=== PATIENT | male | born 1965 | race Caucasian/White ===

== ENCOUNTER 2017-08-06 13:31 | Emergency (ER) | payer MEDICAID, OTHER ==
[2017-08-06] MEDS: ALBUTEROL/IPRATROPIUM (NEB) 3 ML AMP HHN (16:26)
[2017-08-06] MEDS: SOD CHLORIDE 0.9% 1,000 ML IV ×2 (16:35→19:02)
[2017-08-06] MEDS: ACETAMINOPHEN 500 MG TAB PO (16:35)
[2017-08-06] MEDS: KETOROLAC 30 MG INJ IV (16:35)
[2017-08-06] MEDS: CEFTRIAXONE 1 GM INJ IM (19:02)
== END 2017-08-06 20:50 | disposition home or self-care (01) ==
LOC: FTE 13:31
DX: J18.9 Pneumonia, unspecified organism (principal); E86.0 Dehydration
CPT/HCPCS: 71020; 87400; 94664; 96372; 96374; 99284-25

== ENCOUNTER 2018-01-07 17:10 | Inpatient (IN) | payer OTHER, MEDICAID ==
[2018-01-07] MEDS: morphine 4 MG/ML VIAL IV (17:50)
[2018-01-07] MEDS: ONDANSETRON 4 MG INJ IV (17:50)
[2018-01-07] MEDS: CEFEPIME 2GM/50 ML (PMX) 50 ML IVPB (17:51)
[2018-01-07 18:00] LABS: POSITIVE DIFF @See below; RED BLOOD COUNT 4.63 10^6/ul (4.70-6.10)
[2018-01-07 18:04] LABS: ADD UMIC YES; UR ASCORBIC ACID 40 mg/dL (NEGATIVE); UR BILIRUBIN (Dip) NEGATIVE (NEGATIVE); UR BLOOD (Dip) NEGATIVE (NEGATIVE); UR CLARITY CLEAR (CLEAR); UR COLOR YELLOW (YELLOW); UR GLUCOSE (Dip) NEGATIVE (NEGATIVE); UR KETONES (Dip) NEGATIVE (NEGATIVE); UR LEUKOCYTE ESTERASE (Dip) NEGATIVE Leu/ul (NEGATIVE); UR NITRITE (Dip) NEGATIVE (NEGATIVE); UR RBC 2 /HPF (0-5); UR SPECIFIC GRAVITY (Dip) 1.026 (1.003-1.030); UR TOTAL PROTEIN (Dip) 1+ mg/dl (NEGATIVE); UR UROBILINOGEN (Dip) 2+ mg/dL (NEGATIVE); UR WBC 1 /HPF (0-5)
[2018-01-07 18:15] LABS: INR 1.14; PROTIME 14.8 Sec (11.9-14.9); PT RATIO 1.2
[2018-01-07 18:16] LABS: PARTIAL THROMBOPLASTIN TIME 42.1 Sec (25.0-35.0)
[2018-01-07 18:19] LABS: ALANINE AMINOTRANSFERASE 96 IU/L (13-69); ALBUMIN 3.5 g/dl (3.3-4.9); ALBUMIN/GLOBULIN RATIO 0.81; ALKALINE PHOSPHATASE 248 IU/L (42-121); ANION GAP 16 (8-16); ASPARTATE AMINO TRANSFERASE 99 IU/L (15-46); BILIRUBIN,INDIRECT 0.5 mg/dl (0-1.1); BILIRUBIN,TOTAL 0.5 mg/dl (0.2-1.3); BLOOD UREA NITROGEN 16 mg/dl (7-20); CALCIUM 10.1 mg/dl (8.4-10.2); CARBON DIOXIDE 31 mmol/L (21-31); CHLORIDE 97 mmol/L (97-110); CREATININE 1.15 mg/dl (0.61-1.24); GLUCOSE 108 mg/dl (70-220); POTASSIUM 4.7 mmol/L (3.5-5.1); SODIUM 139 mmol/L (135-144); TOTAL PROTEIN 7.8 g/dl (6.1-8.1)
[2018-01-07 18:22] LABS: WHITE BLOOD COUNT 14.8 10^3/ul (4.8-10.8)
[2018-01-07 18:23] LABS: ABNORMAL IP MESSAGE 1; ADD MAN DIFF? YES; HEMOGLOBIN 13.2 g/dl (14.0-18.0); MEAN CORPUSCULAR HEMOGLOBIN 28.5 pg (29.0-33.0); MEAN CORPUSCULAR HGB CONC 33.8 g/dl (32.0-37.0); MEAN CORPUSCULAR VOLUME 84.2 fl (82.0-101.0); MEAN PLATELET VOLUME 9.9 fl (7.4-10.4); NUCLEATED RED BLOOD CELLS% 0.7 /100WBC (0.0-0.0); PLATELET COUNT 171 10^3/UL (140-415); RED CELL DISTRIBUTION WIDTH 12.5 % (11.5-14.5)
[2018-01-07 18:24] LABS: LACTIC ACID 3.2 mmol/L (0.5-2.0)
[2018-01-07 18:31] LABS: TROPONIN-I < 0.012 ng/ml (0.000-0.120)
[2018-01-07] MEDS: VANCOMYCIN 1 GM (PMX) 250 ML IVPB (18:32)
[2018-01-07] MEDS: SOD CHLORIDE 0.9% 1,000 ML IV ×4 (19:30→21:50)
[2018-01-07] MEDS: KETOROLAC 30 MG INJ IV (19:36)
[2018-01-07 19:47] LABS: ANISOCYTOSIS 1+ (0-0); BAND NEUTROPHILS % (M) 7 % (0-4); EOSINOPHILS % (M) 2 % (0-7); ERYTHROBLAST% (NRBC) (M) 2 % (0-0); LYMPHOCYTES #M 4.1 10^3/ul (0.8-2.9); LYMPHOCYTES % (M) 28 % (15-51); METAMYELOCYTES #M 0.7 10^3/ul (0.0-0.0); METAMYELOCYTES %M 5 % (0-0); MICROCYTOSIS 1+ (0-0); MONOCYTE #M 1.6 10^3/ul (0.3-0.9); MONOCYTES % (M) 11 % (0-11); MYELOCYTES #M 0.4 10^3/ul (0.0-0.0); MYELOCYTES % (M) 3 % (0-0); PLATELET MORPHOLOGY COMMENT @See below; PROMYELOCYTES #M 0.2 10^3/ul (0-0); PROMYELOCYTES % (M) 2 % (0-0); REACTIVE LYMPHOCYTES #M 0.2 10^3/ul (0.0-0.0); REACTIVE LYMPHOCYTES% (M) 2 % (0-0); SEG NEUT #M 5.9 10^3/ul (1.6-7.5); SEGMENTED NEUTROPHILS (M) % 39 % (39-77); SMUDGE%M 13 % (0-0)
[2018-01-07] MEDS: ACETAMINOPHEN 325 MG TAB PO (20:06)
[2018-01-07] MEDS ORDERED: VANCOMYCIN IV PER PHARMACY XX (20:30)
[2018-01-07] MEDS ORDERED: NACL 0.9% 3 ML SYG IV (20:30)
[2018-01-07 21:37] LABS: LACTIC ACID 2.2 mmol/L (0.5-2.0)
[2018-01-07] MEDS: SOD CHLORIDE 0.9% 100 ML (23:42)
[2018-01-07] MEDS: IOHEXOL 300MG/ML 150 ML BTL (23:42)
[2018-01-07 23:56] LABS: LACTIC ACID 2.5 mmol/L (0.5-2.0)
[2018-01-08 00:28] LABS: C-REACTIVE PROTEIN 20.9 mg/dl (0.0-0.9)
[2018-01-08] MEDS: PIPER-TAZO 3.375 GM IV (PMX) 100 ML IVPB ×5 (00:44→23:01)
[2018-01-08 00:57] LABS: ERYTHROCYTE SEDIMENTATION RATE 90 mm/Hr (0-20)
[2018-01-08] MEDS: SOD CHLORIDE 0.9% 1,000 ML IV ×5 (00:59→17:29)
[2018-01-08 01:14] LABS: HAAIG REFLEX REFLEX FILED
[2018-01-08] MEDS: HYDROCODONE/APAP (5/325) TAB PO ×2 (01:36→09:35)
[2018-01-08 02:25] LABS: HEPATITIS B SURFACE ANTIGEN NEGATIVE (NEGATIVE)
[2018-01-08 02:42] LABS: HEPATITIS B CORE ANTIBODY REACTIVE (NEGATIVE); HEPATITIS C VIRAL ANTIBODY NEGATIVE (NEGATIVE)
[2018-01-08 03:02] LABS: LACTIC ACID 2.7 mmol/L (0.5-2.0)
[2018-01-08 03:17] LABS: HIV 1&2 ANTIBODY REACTIVE (NEGATIVE)
[2018-01-08] MEDS: MAGNESIUM SULFATE 1 GM/D5W 100 ML IVPB ×2 (04:03→14:25)
[2018-01-08] MEDS: HYDROmorphONE 0.5 MG/0.5 ML SYG IV ×4 (05:37→22:57)
[2018-01-08] MEDS: VANCOMYCIN 1 GM 250 ML IVPB ×2 (07:04→18:40)
[2018-01-08 08:50] LABS: AMPHETAMINE/METHAMPHETAMINE Negative (NEGATIVE)
[2018-01-08 08:55] LABS: BARBITURATES Negative (NEGATIVE); BENZODIAZEPINES Negative (NEGATIVE); CANNABINOIDS Negative (NEGATIVE); COCAINE Negative (NEGATIVE); OPIATES Positive (NEGATIVE)
[2018-01-08 10:45] LABS: ABNORMAL IP MESSAGE 1; HEMOGLOBIN 10.8 g/dl (14.0-18.0); MEAN CORPUSCULAR HEMOGLOBIN 28.3 pg (29.0-33.0); MEAN CORPUSCULAR HGB CONC 33.8 g/dl (32.0-37.0); MEAN PLATELET VOLUME 9.7 fl (7.4-10.4); NUCLEATED RED BLOOD CELLS% 0.5 /100WBC (0.0-0.0); PLATELET COUNT 142 10^3/UL (140-415); POSITIVE DIFF @See below; RED BLOOD COUNT 3.81 10^6/ul (4.70-6.10); RED CELL DISTRIBUTION WIDTH 12.7 % (11.5-14.5)
[2018-01-08 10:45] LABS: WHITE BLOOD COUNT 10.2 10^3/ul (4.8-10.8)
[2018-01-08 10:46] LABS: RETICULOCYTE COUNT # 0.055 X10^6 (0.020-0.110); RETICULOCYTE COUNT % 1.4 % (0.5-1.5)
[2018-01-08 10:46] LABS: RETICULOCYTE RBC 3.92
[2018-01-08 10:48] LABS: ADD MAN DIFF? YES
[2018-01-08 10:59] LABS: HEMOGLOBIN A1C 6.3 % (0-5.9)
[2018-01-08 11:19] LABS: ALANINE AMINOTRANSFERASE 75 IU/L (13-69); ALBUMIN 2.9 g/dl (3.3-4.9); ALBUMIN/GLOBULIN RATIO 0.76; ALKALINE PHOSPHATASE 212 IU/L (42-121); ANION GAP 14 (8-16); ASPARTATE AMINO TRANSFERASE 73 IU/L (15-46); BILIRUBIN,INDIRECT 0.5 mg/dl (0-1.1); BILIRUBIN,TOTAL 0.5 mg/dl (0.2-1.3); BLOOD UREA NITROGEN 13 mg/dl (7-20); CALCIUM 8.7 mg/dl (8.4-10.2); CARBON DIOXIDE 28 mmol/L (21-31); CHLORIDE 100 mmol/L (97-110); CHOL/HDL RATIO 6.9 RATIO; CHOLESTEROL 139 mg/dl (100-200); CREATININE 1.12 mg/dl (0.61-1.24); GLUCOSE 108 mg/dl (70-220); HDL CHOLESTEROL 20 mg/dl (28-71); LDL CHOLESTEROL,CALCULATED 63 mg/dl; MAGNESIUM 1.5 mg/dl (1.7-2.5); POTASSIUM 4.4 mmol/L (3.5-5.1); SODIUM 138 mmol/L (135-144); TOTAL PROTEIN 6.7 g/dl (6.1-8.1); TRIGLYCERIDES 281 mg/dl (0-149)
[2018-01-08 11:23] LABS: LACTIC ACID 2.5 mmol/L (0.5-2.0)
[2018-01-08 11:24] LABS: ETHANOL < 10.0 mg/dl
[2018-01-08] MEDS: SOD CHLORIDE 0.9% 100 ML (11:30)
[2018-01-08] MEDS: IODIXANOL LOCM 100 ML BTL (11:30)
[2018-01-08 12:09] LABS: ANISOCYTOSIS 1+ (0-0); BAND NEUTROPHILS #M 2.9 10^3/ul (0.0-0.6); BAND NEUTROPHILS % (M) 29 % (0-4); EOSINOPHILS % (M) 6 % (0-7); LYMPHOCYTES #M 2.7 10^3/ul (0.8-2.9); LYMPHOCYTES % (M) 27 % (15-51); METAMYELOCYTES #M 0.8 10^3/ul (0.0-0.0); METAMYELOCYTES %M 8 % (0-0); MICROCYTOSIS 1+ (0-0); MONOCYTE #M 0.4 10^3/ul (0.3-0.9); MONOCYTES % (M) 4 % (0-11); MYELOCYTES #M 0.6 10^3/ul (0.0-0.0); MYELOCYTES % (M) 6 % (0-0); PLATELET ESTIMATE NORMAL; REACTIVE LYMPHOCYTES #M 0.3 10^3/ul (0.0-0.0); REACTIVE LYMPHOCYTES% (M) 3 % (0-0); SEGMENTED NEUTROPHILS (M) % 17 % (39-77); SMUDGE%M 9 % (0-0)
[2018-01-08 12:14] LABS: HIV 1&2 ANTIBODY REACTIVE (NEGATIVE)
[2018-01-08] MEDS: ONDANSETRON 4 MG INJ IV ×2 (12:29→18:40)
[2018-01-08] MEDS: IBUPROFEN 400 MG TAB PO ×2 (14:25→20:27)
[2018-01-08 16:14] LABS: CREATINE KINASE < 20 IU/L (23-200)
[2018-01-08 18:21] LABS: LACTIC ACID 2.8 mmol/L (0.5-2.0)
[2018-01-08 21:57] LABS: SITE Left Upper Forearm; TIME 2125
[2018-01-08 23:20] LABS: MONOTEST Negative (NEG)
[2018-01-08 23:24] LABS: RAPID PLASMA REAGIN REACTIVE (NR)
[2018-01-08 23:25] LABS: RPR TITER 1:16 (0)
[2018-01-09] MEDS: IBUPROFEN 400 MG TAB PO ×4 (02:28→22:05)
[2018-01-09] MEDS: HYDROmorphONE 0.5 MG/0.5 ML SYG IV ×4 (03:02→15:18)
[2018-01-09] MEDS: PIPER-TAZO 3.375 GM IV (PMX) 100 ML IVPB ×3 (05:02→18:17)
[2018-01-09 05:30] LABS: ADD MAN DIFF? NO
[2018-01-09 05:43] LABS: WHITE BLOOD COUNT 8.7 10^3/ul (4.8-10.8)
[2018-01-09 05:43] LABS: ABNORMAL IP MESSAGE 1; BASOPHIL # 0.1 10^3/ul (0.0-0.1); EOSINOPHILS # 0.3 10^3/ul (0.0-0.5); EOSINOPHILS % 3.7 % (0.0-7.0); HEMATOCRIT 32.5 % (42.0-52.0); LYMPHOCYTES # 2.3 10^3/ul (0.8-2.9); LYMPHOCYTES % 26.4 % (15.0-51.0); MEAN CORPUSCULAR HEMOGLOBIN 28.5 pg (29.0-33.0); MEAN CORPUSCULAR HGB CONC 33.8 g/dl (32.0-37.0); MEAN CORPUSCULAR VOLUME 84.2 fl (82.0-101.0); MONOCYTE # 0.7 10^3/ul (0.3-0.9); MONOCYTES % 8.2 % (0.0-11.0); NEUTROPHIL # 3.9 10^3/ul (1.6-7.5); NEUTROPHILS % 44.9 % (39.0-77.0); NUCLEATED RED BLOOD CELLS # 0.1 10^3/ul (0.0-0.0); NUCLEATED RED BLOOD CELLS% 0.8 /100WBC (0.0-0.0); PLATELET COUNT 137 10^3/UL (140-415); POSITIVE DIFF @See below; RED BLOOD COUNT 3.86 10^6/ul (4.70-6.10); RED CELL DISTRIBUTION WIDTH 12.6 % (11.5-14.5)
[2018-01-09 06:00] LABS: ANION GAP 12 (8-16); BLOOD UREA NITROGEN 15 mg/dl (7-20); CALCIUM 9.2 mg/dl (8.4-10.2); CARBON DIOXIDE 32 mmol/L (21-31); CHLORIDE 103 mmol/L (97-110); CREATININE 1.13 mg/dl (0.61-1.24); GLUCOSE 108 mg/dl (70-220); MAGNESIUM 1.7 mg/dl (1.7-2.5); PHOSPHORUS 5.8 mg/dl (2.5-4.9); SODIUM 143 mmol/L (135-144)
[2018-01-09 06:05] LABS: ALANINE AMINOTRANSFERASE 68 IU/L (13-69); ALBUMIN 2.9 g/dl (3.3-4.9); ALKALINE PHOSPHATASE 205 IU/L (42-121); ASPARTATE AMINO TRANSFERASE 55 IU/L (15-46); BILIRUBIN,INDIRECT 0.4 mg/dl (0-1.1); BILIRUBIN,TOTAL 0.4 mg/dl (0.2-1.3); TOTAL PROTEIN 6.8 g/dl (6.1-8.1)
[2018-01-09 06:18] LABS: VANCOMYCIN,TROUGH 8.1 ug/ml (10.0-20.0)
[2018-01-09] MEDS: VANCOMYCIN 1 GM 250 ML IVPB ×4 (06:22→22:00)
[2018-01-09] MEDS: SOD CHLORIDE 0.9% 1,000 ML IV ×3 (09:31→23:52)
[2018-01-09] MEDS: MAGNESIUM SULFATE 2 GM/50 ML 50 ML IVPB (09:32)
[2018-01-09 10:48] LABS: ANISOCYTOSIS 3+ (0-0); BAND NEUTROPHILS #M 1.8 10^3/ul (0.0-0.6); BAND NEUTROPHILS % (M) 21 % (0-4); BASOPHILS % (M) 1 % (0-2); LYMPHOCYTES #M 1.9 10^3/ul (0.8-2.9); LYMPHOCYTES % (M) 22 % (15-51); METAMYELOCYTES #M 0.1 10^3/ul (0.0-0.0); METAMYELOCYTES %M 2 % (0-0); MICROCYTOSIS 3+ (0-0); MONOCYTE #M 0.6 10^3/ul (0.3-0.9); MONOCYTES % (M) 8 % (0-11); MYELOCYTES #M 0.4 10^3/ul (0.0-0.0); MYELOCYTES % (M) 5 % (0-0); PLATELET ESTIMATE DECREASED; POIKILOCYTOSIS 3+ (0-0); POLYCHROMASIA 3+ (0-0); PROMYELOCYTES % (M) 1 % (0-0); REACTIVE LYMPHOCYTES% (M) 1 % (0-0); SEG NEUT #M 3.5 10^3/ul (1.6-7.5); SEGMENTED NEUTROPHILS (M) % 39 % (39-77); SMUDGE%M 10 % (0-0)
[2018-01-09 10:50] LABS: PARTIAL THROMBOPLASTIN TIME 37.2 Sec (25.0-35.0)
[2018-01-09 12:16] LABS: HSV 2 IGG ANTIBODY <0.90 index
[2018-01-09] MEDS: LIDOCAINE 1% (MDV) 10 ML INJ ×2 (13:52→13:57)
[2018-01-09] MEDS: ONDANSETRON 4 MG INJ IV (15:25)
[2018-01-09] MEDS: HYDROCODONE/APAP (5/325) TAB PO ×2 (16:16→22:03)
[2018-01-09 19:42] LABS: EBV NUCLEAR AG (EBNA) AB (IGG) >600.00 U/mL; EBV VIRAL CAPSID AG AB (IGG) >750.00 U/mL; EBV VIRAL CAPSID AG AB (IGM) <36.00 U/mL; QUANTIFERON(R)-TB GOLD NEGATIVE (NEGATIVE); TB-NIL <0.00 IU/mL
[2018-01-09] MEDS: HYDROmorphONE 2 MG TAB PO (21:01)
[2018-01-09 23:52] LABS: CMV DNA QL SOURCE WHOLE BLOOD
[2018-01-10] MEDS: PIPER-TAZO 3.375 GM IV (PMX) 100 ML IVPB ×4 (00:42→17:30)
[2018-01-10] MEDS: HYDROmorphONE 2 MG TAB PO ×4 (02:43→18:55)
[2018-01-10] MEDS: SOD CHLORIDE 0.9% 1,000 ML IV ×4 (02:44→23:52)
[2018-01-10] MEDS: HYDROCODONE/APAP (5/325) TAB PO ×4 (04:08→21:43)
[2018-01-10] MEDS: IBUPROFEN 400 MG TAB PO ×4 (04:09→21:43)
[2018-01-10] MEDS: VANCOMYCIN 1 GM 250 ML IVPB ×3 (06:00→22:33)
[2018-01-10] MEDS ORDERED: EMTRICITABINE/TENOFOVIR TAB PO (11:30)
[2018-01-10 11:51] LABS: ANA SCREEN POSITIVE (NEGATIVE)
[2018-01-10 12:24] LABS: WHITE BLOOD COUNT 10.8 10^3/ul (4.8-10.8)
[2018-01-10 12:24] LABS: ABNORMAL IP MESSAGE 1; HEMATOCRIT 35.1 % (42.0-52.0); HEMOGLOBIN 11.8 g/dl (14.0-18.0); MEAN CORPUSCULAR HEMOGLOBIN 28.6 pg (29.0-33.0); MEAN CORPUSCULAR HGB CONC 33.6 g/dl (32.0-37.0); MEAN CORPUSCULAR VOLUME 85.2 fl (82.0-101.0); MEAN PLATELET VOLUME 9.4 fl (7.4-10.4); NUCLEATED RED BLOOD CELLS% 0.7 /100WBC (0.0-0.0); PLATELET COUNT 158 10^3/UL (140-415); POSITIVE DIFF @See below; RED BLOOD COUNT 4.12 10^6/ul (4.70-6.10); RED CELL DISTRIBUTION WIDTH 12.5 % (11.5-14.5)
[2018-01-10 12:25] LABS: ADD MAN DIFF? YES
[2018-01-10] MEDS: PENICILLIN G BENZ 2.4 MIL UNIT SYG IM (12:36)
[2018-01-10 12:41] LABS: ANA PATTERN NUCLEOLAR
[2018-01-10 12:44] LABS: LACTIC ACID 1.9 mmol/L (0.5-2.0)
[2018-01-10 12:47] LABS: ANION GAP 9 (8-16); BLOOD UREA NITROGEN 12 mg/dl (7-20); CALCIUM 8.9 mg/dl (8.4-10.2); CARBON DIOXIDE 33 mmol/L (21-31); CHLORIDE 100 mmol/L (97-110); GLUCOSE 93 mg/dl (70-220); MAGNESIUM 1.6 mg/dl (1.7-2.5); PHOSPHORUS 5.4 mg/dl (2.5-4.9); POTASSIUM 3.8 mmol/L (3.5-5.1); SODIUM 138 mmol/L (135-144)
[2018-01-10 12:51] LABS: ANISOCYTOSIS 2+ (0-0); BAND NEUTROPHILS #M 3.5 10^3/ul (0.0-0.6); BAND NEUTROPHILS % (M) 33 % (0-4); EOSINOPHILS % (M) 2 % (0-7); ERYTHROBLAST% (NRBC) (M) 1 % (0-0); LYMPHOCYTES #M 1.9 10^3/ul (0.8-2.9); LYMPHOCYTES % (M) 18 % (15-51); METAMYELOCYTES %M 10 % (0-0); MICROCYTOSIS 2+ (0-0); MONOCYTE #M 0.9 10^3/ul (0.3-0.9); MONOCYTES % (M) 9 % (0-11); MYELOCYTES #M 0.6 10^3/ul (0.0-0.0); MYELOCYTES % (M) 6 % (0-0); PLATELET ESTIMATE NORMAL; PROMYELOCYTES #M 0.1 10^3/ul (0-0); PROMYELOCYTES % (M) 1 % (0-0); REACTIVE LYMPHOCYTES #M 0.4 10^3/ul (0.0-0.0); REACTIVE LYMPHOCYTES% (M) 4 % (0-0); SEG NEUT #M 2.3 10^3/ul (1.6-7.5); SEGMENTED NEUTROPHILS (M) % 18 % (39-77); SMUDGE%M 7 % (0-0)
[2018-01-10] MEDS: GABAPENTIN 300 MG CAP PO ×2 (13:50→21:44)
[2018-01-10] MEDS: MAGNESIUM OXIDE 400 MG TAB PO (15:32)
[2018-01-10] MEDS ORDERED: EFAVIRENZ 600 MG TAB PO (21:00)
[2018-01-10 21:59] LABS: VANCOMYCIN,TROUGH 11.1 ug/ml (10.0-20.0)
[2018-01-10 22:24] LABS: FORTY EIGHT HOUR READING 0 mm (0-9)
[2018-01-11] MEDS: HYDROmorphONE 2 MG TAB PO ×4 (00:12→20:28)
[2018-01-11] MEDS: PIPER-TAZO 3.375 GM IV (PMX) 100 ML IVPB ×2 (00:12→05:38)
[2018-01-11] MEDS: SOD CHLORIDE 0.9% 1,000 ML IV ×5 (00:13→23:52)
[2018-01-11] MEDS: IBUPROFEN 400 MG TAB PO ×3 (03:21→22:44)
[2018-01-11] MEDS: HYDROCODONE/APAP (5/325) TAB PO ×4 (03:21→22:44)
[2018-01-11] MEDS: VANCOMYCIN 1 GM 250 ML IVPB (05:39)
[2018-01-11] MEDS: GABAPENTIN 300 MG CAP PO ×3 (08:13→20:28)
[2018-01-11 08:21] LABS: LYMPHOCYTE - % CD4 (HELPER) 18 % (30-61); LYMPHOCYTE - %CD8 (SUPPRESSOR) 58 % (12-42); LYMPHOCYTE - ABSOLUTE 2251 cells/uL (850-3900); LYMPHOCYTE - ABSOLUTE CD4 408 cells/uL (490-1740); LYMPHOCYTE - ABSOLUTE CD8 1312 cells/uL (180-1170); LYMPHOCYTE - CD4/CD8 RATIO 0.31 (0.86-5.00)
[2018-01-11 08:27] LABS: ADD MAN DIFF? NO
[2018-01-11 08:31] LABS: ABNORMAL IP MESSAGE 1; BASOPHIL # 0.1 10^3/ul (0.0-0.1); BASOPHILS % 0.9 % (0.0-2.0); EOSINOPHILS # 0.3 10^3/ul (0.0-0.5); EOSINOPHILS % 2.3 % (0.0-7.0); HEMATOCRIT 34.1 % (42.0-52.0); HEMOGLOBIN 11.4 g/dl (14.0-18.0); LYMPHOCYTES # 3.1 10^3/ul (0.8-2.9); LYMPHOCYTES % 26.6 % (15.0-51.0); MEAN CORPUSCULAR HEMOGLOBIN 28.4 pg (29.0-33.0); MEAN CORPUSCULAR HGB CONC 33.4 g/dl (32.0-37.0); MEAN CORPUSCULAR VOLUME 84.8 fl (82.0-101.0); MEAN PLATELET VOLUME 9.6 fl (7.4-10.4); MONOCYTE # 0.7 10^3/ul (0.3-0.9); MONOCYTES % 6.3 % (0.0-11.0); NEUTROPHIL # 5.7 10^3/ul (1.6-7.5); NEUTROPHILS % 49.1 % (39.0-77.0); NUCLEATED RED BLOOD CELLS # 0.1 10^3/ul (0.0-0.0); PLATELET COUNT 158 10^3/UL (140-415); POSITIVE DIFF @See below; RED BLOOD COUNT 4.02 10^6/ul (4.70-6.10); RED CELL DISTRIBUTION WIDTH 12.6 % (11.5-14.5)
[2018-01-11 08:31] LABS: WHITE BLOOD COUNT 11.7 10^3/ul (4.8-10.8)
[2018-01-11 09:02] LABS: ANION GAP 13 (8-16); BLOOD UREA NITROGEN 12 mg/dl (7-20); CALCIUM 9.1 mg/dl (8.4-10.2); CARBON DIOXIDE 33 mmol/L (21-31); CHLORIDE 101 mmol/L (97-110); CREATININE 1.21 mg/dl (0.61-1.24); GLUCOSE 113 mg/dl (70-220); MAGNESIUM 1.6 mg/dl (1.7-2.5); PHOSPHORUS 6.6 mg/dl (2.5-4.9); POTASSIUM 4.1 mmol/L (3.5-5.1); SODIUM 143 mmol/L (135-144)
[2018-01-11 09:40] LABS: ANISOCYTOSIS 1+ (0-0); BAND NEUTROPHILS #M 3.1 10^3/ul (0.0-0.6); BAND NEUTROPHILS % (M) 27 % (0-4); EOSINOPHILS % (M) 1 % (0-7); ERYTHROBLAST% (NRBC) (M) 1 % (0-0); GIANT THROMBO% (M) 2 % (0-0); LYMPHOCYTES #M 3.1 10^3/ul (0.8-2.9); LYMPHOCYTES % (M) 27 % (15-51); METAMYELOCYTES #M 0.8 10^3/ul (0.0-0.0); METAMYELOCYTES %M 7 % (0-0); MICROCYTOSIS 1+ (0-0); MONOCYTE #M 0.2 10^3/ul (0.3-0.9); MONOCYTES % (M) 2 % (0-11); MYELOCYTES #M 0.5 10^3/ul (0.0-0.0); MYELOCYTES % (M) 5 % (0-0); PLATELET ESTIMATE NORMAL; POLYCHROMASIA 1+ (0-0); PROMYELOCYTES #M 0.2 10^3/ul (0-0); PROMYELOCYTES % (M) 2 % (0-0); SEG NEUT #M 3.8 10^3/ul (1.6-7.5); SEGMENTED NEUTROPHILS (M) % 29 % (39-77); SMUDGE%M 3 % (0-0)
[2018-01-11] MEDS: ACETAMINOPHEN 325 MG TAB PO ×2 (10:02→20:28)
[2018-01-11] MEDS: MAGNESIUM SULFATE 2 GM/50 ML 50 ML IVPB (11:27)
[2018-01-11 15:52] LABS: DRVVT CONFIRMATION NEGATIVE (NEGATIVE); HEXAGONAL PHASE CONFIRMATION POSITIVE (NEGATIVE); THROMBIN CLOTTING TIME 21 sec (13-19)
[2018-01-12] MEDS: SOD CHLORIDE 0.9% 1,000 ML IV ×4 (00:40→23:42)
[2018-01-12] MEDS: HYDROCODONE/APAP (5/325) TAB PO ×3 (04:47→18:38)
[2018-01-12] MEDS: IBUPROFEN 400 MG TAB PO ×3 (04:47→18:38)
[2018-01-12] MEDS: GABAPENTIN 300 MG CAP PO ×3 (09:50→20:57)
[2018-01-12] MEDS: HYDROmorphONE 2 MG TAB PO ×3 (09:50→20:58)
[2018-01-12 10:40] LABS: ADD MAN DIFF? NO
[2018-01-12 10:52] LABS: ABNORMAL IP MESSAGE 1; BASOPHIL # 0.1 10^3/ul (0.0-0.1); BASOPHILS % 0.7 % (0.0-2.0); EOSINOPHILS # 0.2 10^3/ul (0.0-0.5); EOSINOPHILS % 2.2 % (0.0-7.0); HEMATOCRIT 29.9 % (42.0-52.0); LYMPHOCYTES # 2.5 10^3/ul (0.8-2.9); LYMPHOCYTES % 26.8 % (15.0-51.0); MEAN CORPUSCULAR HEMOGLOBIN 28.5 pg (29.0-33.0); MEAN CORPUSCULAR HGB CONC 33.4 g/dl (32.0-37.0); MEAN CORPUSCULAR VOLUME 85.2 fl (82.0-101.0); MEAN PLATELET VOLUME 9.2 fl (7.4-10.4); MONOCYTE # 0.7 10^3/ul (0.3-0.9); MONOCYTES % 6.9 % (0.0-11.0); NEUTROPHIL # 4.8 10^3/ul (1.6-7.5); NEUTROPHILS % 51.4 % (39.0-77.0); NUCLEATED RED BLOOD CELLS # 0.1 10^3/ul (0.0-0.0); NUCLEATED RED BLOOD CELLS% 1.1 /100WBC (0.0-0.0); PLATELET COUNT 136 10^3/UL (140-415); POSITIVE DIFF @See below; RED BLOOD COUNT 3.51 10^6/ul (4.70-6.10); RED CELL DISTRIBUTION WIDTH 12.5 % (11.5-14.5)
[2018-01-12 10:52] LABS: WHITE BLOOD COUNT 9.4 10^3/ul (4.8-10.8)
[2018-01-12 10:59] LABS: ANION GAP 10 (8-16); BLOOD UREA NITROGEN 10 mg/dl (7-20); CALCIUM 9.1 mg/dl (8.4-10.2); CARBON DIOXIDE 33 mmol/L (21-31); CHLORIDE 104 mmol/L (97-110); CREATININE 0.92 mg/dl (0.61-1.24); GLUCOSE 132 mg/dl (70-220); MAGNESIUM 1.7 mg/dl (1.7-2.5); PHOSPHORUS 4.9 mg/dl (2.5-4.9); POTASSIUM 3.9 mmol/L (3.5-5.1); SODIUM 143 mmol/L (135-144)
[2018-01-12 12:56] LABS: ANISOCYTOSIS 1+ (0-0); BAND NEUTROPHILS #M 2.4 10^3/ul (0.0-0.6); BAND NEUTROPHILS % (M) 26 % (0-4); EOSINOPHILS % (M) 1 % (0-7); ERYTHROBLAST% (NRBC) (M) 1 % (0-0); LYMPHOCYTES #M 2.7 10^3/ul (0.8-2.9); LYMPHOCYTES % (M) 29 % (15-51); METAMYELOCYTES #M 0.4 10^3/ul (0.0-0.0); METAMYELOCYTES %M 5 % (0-0); MICROCYTOSIS 1+ (0-0); MONOCYTE #M 0.2 10^3/ul (0.3-0.9); MONOCYTES % (M) 3 % (0-11); MYELOCYTES #M 0.2 10^3/ul (0.0-0.0); MYELOCYTES % (M) 3 % (0-0); PLATELET ESTIMATE NORMAL; REACTIVE LYMPHOCYTES #M 0.1 10^3/ul (0.0-0.0); REACTIVE LYMPHOCYTES% (M) 2 % (0-0); SEG NEUT #M 3.1 10^3/ul (1.6-7.5); SEGMENTED NEUTROPHILS (M) % 31 % (39-77); SMUDGE%M 10 % (0-0)
[2018-01-12 13:16] LABS: LYMPHOCYTE - % CD4 (HELPER) 21 % (30-61); LYMPHOCYTE - %CD8 (SUPPRESSOR) 61 % (12-42); LYMPHOCYTE - ABSOLUTE 2511 cells/uL (850-3900); LYMPHOCYTE - ABSOLUTE CD4 519 cells/uL (490-1740); LYMPHOCYTE - ABSOLUTE CD8 1531 cells/uL (180-1170); LYMPHOCYTE - CD4/CD8 RATIO 0.34 (0.86-5.00)
[2018-01-12 16:35] LABS: URIC ACID 4.1 mg/dl (3.1-7.9)
[2018-01-12 22:13] LABS: SEVENTY TWO HOUR READING 0 mm (0-9)
[2018-01-12] MEDS: LORAZEPAM 1 MG TAB PO (23:42)
[2018-01-13] MEDS: IBUPROFEN 400 MG TAB PO ×2 (00:58→13:19)
[2018-01-13] MEDS: HYDROCODONE/APAP (5/325) TAB PO ×2 (02:15→11:25)
[2018-01-13 06:19] LABS: ADD MAN DIFF? NO
[2018-01-13 06:25] LABS: WHITE BLOOD COUNT 8.8 10^3/ul (4.8-10.8)
[2018-01-13 06:25] LABS: ABNORMAL IP MESSAGE 1; BASOPHIL # 0.1 10^3/ul (0.0-0.1); BASOPHILS % 0.8 % (0.0-2.0); EOSINOPHILS # 0.2 10^3/ul (0.0-0.5); EOSINOPHILS % 2.2 % (0.0-7.0); HEMATOCRIT 29.2 % (42.0-52.0); HEMOGLOBIN 9.9 g/dl (14.0-18.0); LYMPHOCYTES # 2.4 10^3/ul (0.8-2.9); LYMPHOCYTES % 27.1 % (15.0-51.0); MEAN CORPUSCULAR HEMOGLOBIN 28.9 pg (29.0-33.0); MEAN CORPUSCULAR HGB CONC 33.9 g/dl (32.0-37.0); MEAN CORPUSCULAR VOLUME 85.1 fl (82.0-101.0); MEAN PLATELET VOLUME 9.5 fl (7.4-10.4); MONOCYTES % 10.9 % (0.0-11.0); NEUTROPHIL # 4.1 10^3/ul (1.6-7.5); NEUTROPHILS % 46.4 % (39.0-77.0); NUCLEATED RED BLOOD CELLS # 0.1 10^3/ul (0.0-0.0); NUCLEATED RED BLOOD CELLS% 1.1 /100WBC (0.0-0.0); PLATELET COUNT 133 10^3/UL (140-415); POSITIVE DIFF @See below; RED BLOOD COUNT 3.43 10^6/ul (4.70-6.10); RED CELL DISTRIBUTION WIDTH 12.4 % (11.5-14.5)
[2018-01-13 06:53] LABS: ANION GAP 8 (8-16); BLOOD UREA NITROGEN 15 mg/dl (7-20); CALCIUM 9.2 mg/dl (8.4-10.2); CARBON DIOXIDE 31 mmol/L (21-31); CHLORIDE 103 mmol/L (97-110); CREATININE 0.84 mg/dl (0.61-1.24); GLUCOSE 108 mg/dl (70-220); PHOSPHORUS 5.7 mg/dl (2.5-4.9); POTASSIUM 3.6 mmol/L (3.5-5.1); SODIUM 138 mmol/L (135-144)
[2018-01-13 06:56] LABS: URIC ACID 4.4 mg/dl (3.1-7.9)
[2018-01-13 07:27] LABS: MAGNESIUM 1.6 mg/dl (1.7-2.5)
[2018-01-13 07:43] LABS: LACTATE DEHYDROGENASE 5675 IU/L (313-618)
[2018-01-13] MEDS: HYDROmorphONE 2 MG TAB PO ×3 (08:24→23:10)
[2018-01-13] MEDS: GABAPENTIN 300 MG CAP PO ×3 (08:24→20:49)
[2018-01-13] MEDS: SOD CHLORIDE 0.9% 1,000 ML IV (08:28)
[2018-01-13 08:36] LABS: ANISOCYTOSIS 1+ (0-0); BAND NEUTROPHILS #M 2.4 10^3/ul (0.0-0.6); BAND NEUTROPHILS % (M) 28 % (0-4); EOSINOPHILS % (M) 1 % (0-7); ERYTHROBLAST% (NRBC) (M) 1 % (0-0); GIANT THROMBO% (M) 1 % (0-0); LYMPHOCYTES #M 1.1 10^3/ul (0.8-2.9); LYMPHOCYTES % (M) 13 % (15-51); METAMYELOCYTES #M 0.3 10^3/ul (0.0-0.0); METAMYELOCYTES %M 4 % (0-0); MONOCYTE #M 0.4 10^3/ul (0.3-0.9); MONOCYTES % (M) 5 % (0-11); MYELOCYTES #M 0.7 10^3/ul (0.0-0.0); MYELOCYTES % (M) 8 % (0-0); PLATELET ESTIMATE DECREASED; PROMYELOCYTES #M 0.4 10^3/ul (0-0); PROMYELOCYTES % (M) 5 % (0-0); REACTIVE LYMPHOCYTES #M 0.7 10^3/ul (0.0-0.0); REACTIVE LYMPHOCYTES% (M) 8 % (0-0); SEG NEUT #M 2.7 10^3/ul (1.6-7.5); SEGMENTED NEUTROPHILS (M) % 28 % (39-77); SMUDGE%M 35 % (0-0)
[2018-01-13 12:48] LABS: INR 1.14; PROTIME 14.8 Sec (11.9-14.9); PT RATIO 1.2
[2018-01-13] MEDS: SOD CHLORIDE 0.45% 1,000 ML IV (13:18)
[2018-01-13] MEDS: MAGNESIUM SULFATE 2 GM/50 ML 50 ML IVPB (13:18)
[2018-01-13] MEDS: ACETAMINOPHEN 325 MG TAB PO (13:19)
[2018-01-13] MEDS: LIDOCAINE 1% (MDV) 10 ML INJ (15:40)
[2018-01-13 18:56] LABS: CSF MN% 93.8 %; CSF PMN% 6.2 %; CSF RBC 0 /uL (0-0)
[2018-01-13 19:29] LABS: TOTAL PROTEIN,CSF 121 mg/dl (12-60)
[2018-01-13 19:29] LABS: GLUCOSE,CSF 43 mg/dl (50-80)
[2018-01-13 19:45] LABS: FLUID LD 149 U/L
[2018-01-13 19:46] LABS: FLUID TYPE CSF
[2018-01-13 19:52] LABS: CSF WBC 16 /cmm (0-10)
[2018-01-13 19:53] LABS: CSF COLOR COLORLESS
[2018-01-13 19:53] LABS: CSF CLARITY CLEAR; CSF VOLUME 8.5 ml; CSF#TUBES REC'D 4
[2018-01-13 19:54] LABS: CSF#TUBE COUNT TUBE#4
[2018-01-13] MEDS ORDERED: VANCOMYCIN IV PER PHARMACY XX (20:30)
[2018-01-13] MEDS: LORAZEPAM 1 MG TAB PO (20:49)
[2018-01-13] MEDS: VANCOMYCIN 1.5 GM in SOD CHLORIDE 0.9% 250 ML IVPB (21:30)
[2018-01-14] MEDS: VANCOMYCIN 1.25 GM in SOD CHLORIDE 0.9% 250 ML IVPB ×3 (05:36→21:00)
[2018-01-14 06:13] LABS: ADD MAN DIFF? NO
[2018-01-14 06:17] LABS: ABNORMAL IP MESSAGE 1; BASOPHIL # 0.1 10^3/ul (0.0-0.1); BASOPHILS % 0.7 % (0.0-2.0); EOSINOPHILS # 0.2 10^3/ul (0.0-0.5); EOSINOPHILS % 2.2 % (0.0-7.0); HEMATOCRIT 31.4 % (42.0-52.0); HEMOGLOBIN 10.6 g/dl (14.0-18.0); LYMPHOCYTES # 2.4 10^3/ul (0.8-2.9); LYMPHOCYTES % 29.4 % (15.0-51.0); MEAN CORPUSCULAR HEMOGLOBIN 28.3 pg (29.0-33.0); MEAN CORPUSCULAR HGB CONC 33.8 g/dl (32.0-37.0); MEAN PLATELET VOLUME 9.8 fl (7.4-10.4); MONOCYTE # 0.6 10^3/ul (0.3-0.9); MONOCYTES % 7.7 % (0.0-11.0); NEUTROPHIL # 3.9 10^3/ul (1.6-7.5); NEUTROPHILS % 48.2 % (39.0-77.0); NUCLEATED RED BLOOD CELLS # 0.2 10^3/ul (0.0-0.0); PLATELET COUNT 151 10^3/UL (140-415); POSITIVE DIFF @See below; RED BLOOD COUNT 3.74 10^6/ul (4.70-6.10); RED CELL DISTRIBUTION WIDTH 12.4 % (11.5-14.5)
[2018-01-14 06:17] LABS: WHITE BLOOD COUNT 8.1 10^3/ul (4.8-10.8)
[2018-01-14 07:06] LABS: ANION GAP 8 (8-16); BLOOD UREA NITROGEN 17 mg/dl (7-20); CALCIUM 10.1 mg/dl (8.4-10.2); CARBON DIOXIDE 32 mmol/L (21-31); CHLORIDE 101 mmol/L (97-110); CREATININE 1.01 mg/dl (0.61-1.24); GLUCOSE 115 mg/dl (70-220); MAGNESIUM 2.1 mg/dl (1.7-2.5); PHOSPHORUS 8.2 mg/dl (2.5-4.9); POTASSIUM 3.6 mmol/L (3.5-5.1); SODIUM 137 mmol/L (135-144)
[2018-01-14] MEDS: SOD CHLORIDE 0.45% 1,000 ML IV (08:00)
[2018-01-14] MEDS: GABAPENTIN 300 MG CAP PO ×3 (08:53→20:38)
[2018-01-14] MEDS: CEFTRIAXONE 2 GM/50 ML (PMX) 50 ML IVPB (08:54)
[2018-01-14 09:15] LABS: HEPATITIS B SURFACE ANTIGEN NEGATIVE (NEGATIVE)
[2018-01-14] MEDS: HYDROmorphONE 2 MG TAB PO ×3 (10:19→20:39)
[2018-01-14] MEDS: ACETAMINOPHEN 325 MG TAB PO (12:30)
[2018-01-14] MEDS: HYDROCODONE/APAP (5/325) TAB PO ×2 (16:58→22:40)
[2018-01-14] MEDS: ONDANSETRON 4 MG INJ IV (20:42)
[2018-01-14 21:34] LABS: VANCOMYCIN,TROUGH 19.1 ug/ml (10.0-20.0)
[2018-01-15] MEDS: HYDROmorphONE 2 MG TAB PO ×4 (03:31→17:32)
[2018-01-15] MEDS: SOD CHLORIDE 0.45% 1,000 ML IV ×2 (04:00→12:38)
[2018-01-15] MEDS: ACETAMINOPHEN 325 MG TAB PO ×2 (05:00→18:49)
[2018-01-15] MEDS: ONDANSETRON 4 MG INJ IV (05:00)
[2018-01-15] MEDS: VANCOMYCIN 1.25 GM in SOD CHLORIDE 0.9% 250 ML IVPB (05:01)
[2018-01-15] MEDS: GABAPENTIN 300 MG CAP PO ×3 (09:01→20:50)
[2018-01-15] MEDS: CEFTRIAXONE 2 GM/50 ML (PMX) 50 ML IVPB (09:02)
[2018-01-15 11:50] LABS: ADD MAN DIFF? NO
[2018-01-15 11:52] LABS: ABNORMAL IP MESSAGE 1; BASOPHIL # 0.1 10^3/ul (0.0-0.1); BASOPHILS % 0.7 % (0.0-2.0); EOSINOPHILS # 0.2 10^3/ul (0.0-0.5); EOSINOPHILS % 2.4 % (0.0-7.0); HEMATOCRIT 29.9 % (42.0-52.0); HEMOGLOBIN 10.1 g/dl (14.0-18.0); LYMPHOCYTES # 2.7 10^3/ul (0.8-2.9); LYMPHOCYTES % 32.2 % (15.0-51.0); MEAN CORPUSCULAR HEMOGLOBIN 28.5 pg (29.0-33.0); MEAN CORPUSCULAR HGB CONC 33.8 g/dl (32.0-37.0); MEAN CORPUSCULAR VOLUME 84.2 fl (82.0-101.0); MEAN PLATELET VOLUME 9.6 fl (7.4-10.4); MONOCYTE # 0.8 10^3/ul (0.3-0.9); MONOCYTES % 9.3 % (0.0-11.0); NEUTROPHIL # 3.8 10^3/ul (1.6-7.5); NEUTROPHILS % 45.7 % (39.0-77.0); NUCLEATED RED BLOOD CELLS # 0.1 10^3/ul (0.0-0.0); NUCLEATED RED BLOOD CELLS% 1.4 /100WBC (0.0-0.0); PLATELET COUNT 151 10^3/UL (140-415); POSITIVE DIFF @See below; RED BLOOD COUNT 3.55 10^6/ul (4.70-6.10); RED CELL DISTRIBUTION WIDTH 12.5 % (11.5-14.5)
[2018-01-15 11:52] LABS: WHITE BLOOD COUNT 8.4 10^3/ul (4.8-10.8)
[2018-01-15 12:20] LABS: ANION GAP 11 (8-16); BLOOD UREA NITROGEN 19 mg/dl (7-20); CALCIUM 10.1 mg/dl (8.4-10.2); CARBON DIOXIDE 33 mmol/L (21-31); CHLORIDE 97 mmol/L (97-110); CREATININE 1.23 mg/dl (0.61-1.24); GLUCOSE 104 mg/dl (70-220); MAGNESIUM 1.7 mg/dl (1.7-2.5); PHOSPHORUS 7.3 mg/dl (2.5-4.9); POTASSIUM 3.6 mmol/L (3.5-5.1); SODIUM 137 mmol/L (135-144)
[2018-01-15] MEDS: VANCOMYCIN 1 GM 250 ML IVPB (12:37)
[2018-01-15] MEDS: HYDROCODONE/APAP (5/325) TAB PO ×2 (14:41→20:49)
[2018-01-15] MEDS: VANCOMYCIN 750 MG in SOD CHLORIDE 0.9% 150 ML IVPB (20:59)
[2018-01-15] MEDS: IBUPROFEN 400 MG TAB PO (22:14)
[2018-01-16] MEDS: VANCOMYCIN 750 MG in SOD CHLORIDE 0.9% 150 ML IVPB ×3 (05:03→20:19)
[2018-01-16] MEDS: HYDROCODONE/APAP (5/325) TAB PO ×2 (05:09→20:18)
[2018-01-16] MEDS: GABAPENTIN 300 MG CAP PO ×3 (08:30→20:18)
[2018-01-16] MEDS: CEFTRIAXONE 2 GM/50 ML (PMX) 50 ML IVPB ×2 (08:30→20:19)
[2018-01-16] MEDS: HYDROmorphONE 2 MG TAB PO ×3 (08:30→17:45)
[2018-01-16 08:54] LABS: ADD MAN DIFF? NO
[2018-01-16 08:59] LABS: ABNORMAL IP MESSAGE 1; BASOPHIL # 0.1 10^3/ul (0.0-0.1); BASOPHILS % 0.6 % (0.0-2.0); EOSINOPHILS # 0.2 10^3/ul (0.0-0.5); EOSINOPHILS % 2.8 % (0.0-7.0); HEMATOCRIT 30.1 % (42.0-52.0); HEMOGLOBIN 9.9 g/dl (14.0-18.0); LYMPHOCYTES # 2.9 10^3/ul (0.8-2.9); LYMPHOCYTES % 33.5 % (15.0-51.0); MEAN CORPUSCULAR HGB CONC 32.9 g/dl (32.0-37.0); MEAN PLATELET VOLUME 10.3 fl (7.4-10.4); MONOCYTE # 0.8 10^3/ul (0.3-0.9); MONOCYTES % 8.8 % (0.0-11.0); NEUTROPHIL # 3.8 10^3/ul (1.6-7.5); NEUTROPHILS % 43.8 % (39.0-77.0); NUCLEATED RED BLOOD CELLS # 0.2 10^3/ul (0.0-0.0); PLATELET COUNT 148 10^3/UL (140-415); POSITIVE DIFF @See below; RED BLOOD COUNT 3.54 10^6/ul (4.70-6.10); RED CELL DISTRIBUTION WIDTH 12.7 % (11.5-14.5)
[2018-01-16 08:59] LABS: WHITE BLOOD COUNT 8.7 10^3/ul (4.8-10.8)
[2018-01-16 09:15] LABS: IRON 60 ug/dl (35-150)
[2018-01-16 09:24] LABS: % IRON SATURATION 36 % SAT (22-52); ALBUMIN 3.2 g/dl (3.3-4.9); ANION GAP 10 (8-16); BLOOD UREA NITROGEN 22 mg/dl (7-20); CALCIUM 10.7 mg/dl (8.4-10.2); CARBON DIOXIDE 35 mmol/L (21-31); CHLORIDE 96 mmol/L (97-110); CREATININE 1.21 mg/dl (0.61-1.24); GLUCOSE 101 mg/dl (70-220); MAGNESIUM 1.9 mg/dl (1.7-2.5); PHOSPHORUS 5.6 mg/dl (2.5-4.9); POTASSIUM 4.2 mmol/L (3.5-5.1); SODIUM 137 mmol/L (135-144); TOTAL IRON BINDING CAPACITY 169 ug/dl (241-421)
[2018-01-16] MEDS: LORAZEPAM 1 MG TAB PO (09:38)
[2018-01-16] MEDS ORDERED: CALCIUM CARBONATE 500 MG CHEW TAB PO (10:00)
[2018-01-16 10:11] LABS: ANISOCYTOSIS 1+ (0-0); BAND NEUTROPHILS #M 3.3 10^3/ul (0.0-0.6); BAND NEUTROPHILS % (M) 38 % (0-4); EOSINOPHILS % (M) 8 % (0-7); ERYTHROBLAST% (NRBC) (M) 4 % (0-0); LYMPHOCYTES % (M) 24 % (15-51); METAMYELOCYTES #M 0.3 10^3/ul (0.0-0.0); METAMYELOCYTES %M 4 % (0-0); MONOCYTE #M 0.2 10^3/ul (0.3-0.9); MONOCYTES % (M) 3 % (0-11); PLATELET ESTIMATE NORMAL; POLYCHROMASIA 1+ (0-0); REACTIVE LYMPHOCYTES #M 0.1 10^3/ul (0.0-0.0); REACTIVE LYMPHOCYTES% (M) 2 % (0-0); SEG NEUT #M 2.1 10^3/ul (1.6-7.5); SEGMENTED NEUTROPHILS (M) % 21 % (39-77); SMUDGE%M 20 % (0-0)
[2018-01-16] MEDS: SENNA/DOCUSATE NA (8.6MG/50MG) TAB PO ×2 (10:33→20:18)
[2018-01-16] MEDS: POLYETHYLENE GLYCOL 17 GM PACKET PO (10:33)
[2018-01-16] MEDS: PANTOPRAZOLE (EC) 40 MG TAB PO (10:33)
[2018-01-16 12:55] LABS: VANCOMYCIN,TROUGH 16.3 ug/ml (10.0-20.0)
[2018-01-16] MEDS: SOD CHLORIDE 0.9% 1,000 ML IV (13:33)
[2018-01-16] MEDS: ACETAMINOPHEN 325 MG TAB PO (13:40)
[2018-01-16] MEDS: EMTRICITABINE/TENOFOVIR TAB PO (15:37)
[2018-01-16] MEDS: PENICILLIN G BENZ 2.4 MIL UNIT SYG IM (15:38)
[2018-01-16 18:37] LABS: AMPHETAMINE/METHAMPHETAMINE NEGATIVE (NEGATIVE); BARBITURATES NEGATIVE (NEGATIVE); BENZODIAZEPINES NEGATIVE (NEGATIVE); CANNABINOIDS NEGATIVE (NEGATIVE); COCAINE NEGATIVE (NEGATIVE); OPIATES POSITIVE (NEGATIVE)
[2018-01-16] MEDS: EFAVIRENZ 600 MG TAB PO (20:25)
[2018-01-17] MEDS: HYDROmorphONE 2 MG TAB PO ×2 (00:50→20:21)
[2018-01-17] MEDS: HYDROCODONE/APAP (5/325) TAB PO ×2 (05:52→23:38)
[2018-01-17] MEDS: PANTOPRAZOLE (EC) 40 MG TAB PO (05:52)
[2018-01-17] MEDS: VANCOMYCIN 750 MG in SOD CHLORIDE 0.9% 150 ML IVPB ×3 (05:52→20:36)
[2018-01-17] MEDS: CEFTRIAXONE 2 GM/50 ML (PMX) 50 ML IVPB ×2 (08:38→20:24)
[2018-01-17] MEDS: SENNA/DOCUSATE NA (8.6MG/50MG) TAB PO ×2 (09:00→20:22)
[2018-01-17] MEDS: POLYETHYLENE GLYCOL 17 GM PACKET PO (09:00)
[2018-01-17] MEDS: EMTRICITABINE/TENOFOVIR TAB PO (09:00)
[2018-01-17] MEDS: GABAPENTIN 300 MG CAP PO ×3 (09:00→20:20)
[2018-01-17 09:10] LABS: ADD MAN DIFF? NO
[2018-01-17 09:13] LABS: WHITE BLOOD COUNT 9.3 10^3/ul (4.8-10.8)
[2018-01-17 09:13] LABS: ABNORMAL IP MESSAGE 1; BASOPHILS % 0.4 % (0.0-2.0); EOSINOPHILS # 0.2 10^3/ul (0.0-0.5); HEMATOCRIT 29.7 % (42.0-52.0); HEMOGLOBIN 9.9 g/dl (14.0-18.0); LYMPHOCYTES # 3.7 10^3/ul (0.8-2.9); LYMPHOCYTES % 39.3 % (15.0-51.0); MEAN CORPUSCULAR HEMOGLOBIN 27.9 pg (29.0-33.0); MEAN CORPUSCULAR HGB CONC 33.3 g/dl (32.0-37.0); MEAN CORPUSCULAR VOLUME 83.7 fl (82.0-101.0); MEAN PLATELET VOLUME 9.9 fl (7.4-10.4); MONOCYTE # 0.8 10^3/ul (0.3-0.9); MONOCYTES % 9.1 % (0.0-11.0); NEUTROPHIL # 3.7 10^3/ul (1.6-7.5); NEUTROPHILS % 39.8 % (39.0-77.0); NUCLEATED RED BLOOD CELLS # 0.1 10^3/ul (0.0-0.0); NUCLEATED RED BLOOD CELLS% 1.5 /100WBC (0.0-0.0); PLATELET COUNT 150 10^3/UL (140-415); POSITIVE DIFF @See below; RED BLOOD COUNT 3.55 10^6/ul (4.70-6.10); RED CELL DISTRIBUTION WIDTH 12.4 % (11.5-14.5)
[2018-01-17 09:36] LABS: ALBUMIN 3.4 g/dl (3.3-4.9); ANION GAP 12 (8-16); BLOOD UREA NITROGEN 20 mg/dl (7-20); CALCIUM 10.4 mg/dl (8.4-10.2); CARBON DIOXIDE 33 mmol/L (21-31); CHLORIDE 94 mmol/L (97-110); CREATININE 1.15 mg/dl (0.61-1.24); GLUCOSE 105 mg/dl (70-220); MAGNESIUM 1.7 mg/dl (1.7-2.5); PHOSPHORUS 6.1 mg/dl (2.5-4.9); SODIUM 135 mmol/L (135-144)
[2018-01-17] MEDS: HYDROmorphONE 1 MG/ML SYG IV (12:15)
[2018-01-17] MEDS: CEFAZOLIN 1 GM/50 ML (PMX) 50 ML IVPB ×2 (13:12→13:56)
[2018-01-17] MEDS: DIPHENHYDRAMINE 50 MG INJ (13:12)
[2018-01-17] MEDS: HEPARIN 1000 UNITS/ML 10 ML INJ (13:12)
[2018-01-17] MEDS: FENTAnyl 50 MCG/ML VIAL (13:12)
[2018-01-17] MEDS: LIDOCAINE 1%/EPI 30 ML INJ (13:12)
[2018-01-17] MEDS: POLYMYXIN/BACITRACIN 1L IRRIG IRR (13:30)
[2018-01-17] MEDS: SOD CHLORIDE 0.9% 1,000 ML IV (16:15)
[2018-01-17] MEDS: morphine (ER) 15 MG TAB PO (20:21)
[2018-01-17] MEDS: EFAVIRENZ 600 MG TAB PO (20:21)
[2018-01-17] MEDS: IBUPROFEN 400 MG TAB PO (23:38)
[2018-01-18] MEDS: PANTOPRAZOLE (EC) 40 MG TAB PO (05:46)
[2018-01-18] MEDS: VANCOMYCIN 750 MG in SOD CHLORIDE 0.9% 150 ML IVPB ×3 (05:46→13:32)
[2018-01-18] MEDS: HYDROmorphONE 2 MG TAB PO ×2 (05:46→13:03)
[2018-01-18] MEDS: ACETAMINOPHEN 325 MG TAB PO (05:46)
[2018-01-18] MEDS: CEFTRIAXONE 2 GM/50 ML (PMX) 50 ML IVPB ×2 (08:16→20:38)
[2018-01-18] MEDS: POLYETHYLENE GLYCOL 17 GM PACKET PO (08:16)
[2018-01-18] MEDS: morphine (ER) 15 MG TAB PO ×2 (08:18→20:39)
[2018-01-18] MEDS: GABAPENTIN 300 MG CAP PO ×3 (08:19→20:39)
[2018-01-18] MEDS: SENNA/DOCUSATE NA (8.6MG/50MG) TAB PO ×2 (08:19→20:39)
[2018-01-18] MEDS: EMTRICITABINE/TENOFOVIR TAB PO (08:19)
[2018-01-18 08:20] LABS: WHITE BLOOD COUNT 6.6 10^3/ul (4.8-10.8)
[2018-01-18 08:20] LABS: ABNORMAL IP MESSAGE 1; HEMATOCRIT 29.3 % (42.0-52.0); HEMOGLOBIN 9.7 g/dl (14.0-18.0); MEAN CORPUSCULAR HEMOGLOBIN 28.1 pg (29.0-33.0); MEAN CORPUSCULAR HGB CONC 33.1 g/dl (32.0-37.0); MEAN CORPUSCULAR VOLUME 84.9 fl (82.0-101.0); NUCLEATED RED BLOOD CELLS% 2.3 /100WBC (0.0-0.0); PLATELET COUNT 143 10^3/UL (140-415); POSITIVE DIFF @See below; RED BLOOD COUNT 3.45 10^6/ul (4.70-6.10); RED CELL DISTRIBUTION WIDTH 12.5 % (11.5-14.5)
[2018-01-18 08:21] LABS: ADD MAN DIFF? YES
[2018-01-18 08:52] LABS: ALBUMIN 3.1 g/dl (3.3-4.9); ANION GAP 12 (8-16); BLOOD UREA NITROGEN 27 mg/dl (7-20); CALCIUM 11.3 mg/dl (8.4-10.2); CARBON DIOXIDE 32 mmol/L (21-31); CHLORIDE 98 mmol/L (97-110); CREATININE 1.35 mg/dl (0.61-1.24); GLUCOSE 122 mg/dl (70-220); MAGNESIUM 2.1 mg/dl (1.7-2.5); PHOSPHORUS 6.9 mg/dl (2.5-4.9); POTASSIUM 3.8 mmol/L (3.5-5.1); SODIUM 138 mmol/L (135-144)
[2018-01-18 08:56] LABS: ANISOCYTOSIS 2+ (0-0); BAND NEUTROPHILS #M 1.5 10^3/ul (0.0-0.6); BAND NEUTROPHILS % (M) 23 % (0-4); EOSINOPHILS % (M) 6 % (0-7); ERYTHROBLAST% (NRBC) (M) 2 % (0-0); LYMPHOCYTES % (M) 16 % (15-51); METAMYELOCYTES #M 0.2 10^3/ul (0.0-0.0); METAMYELOCYTES %M 4 % (0-0); MICROCYTOSIS 2+ (0-0); MONOCYTE #M 0.5 10^3/ul (0.3-0.9); MONOCYTES % (M) 8 % (0-11); MYELOCYTES #M 0.1 10^3/ul (0.0-0.0); MYELOCYTES % (M) 2 % (0-0); PLATELET ESTIMATE NORMAL; POLYCHROMASIA 1+ (0-0); PROMYELOCYTES % (M) 1 % (0-0); REACTIVE LYMPHOCYTES #M 0.5 10^3/ul (0.0-0.0); REACTIVE LYMPHOCYTES% (M) 9 % (0-0); SEG NEUT #M 2.1 10^3/ul (1.6-7.5); SEGMENTED NEUTROPHILS (M) % 31 % (39-77); SMUDGE%M 23 % (0-0)
[2018-01-18 12:40] LABS: VANCOMYCIN,TROUGH 17.6 ug/ml (10.0-20.0)
[2018-01-18] MEDS: SOD CHLORIDE 0.9% 1,000 ML IV (12:47)
[2018-01-18] MEDS: ONDANSETRON 4 MG INJ IV (15:38)
[2018-01-18] MEDS: EFAVIRENZ 600 MG TAB PO (20:39)
[2018-01-19] MEDS: VANCOMYCIN 1 GM 250 ML IVPB ×2 (00:31→12:43)
[2018-01-19] MEDS: HYDROmorphONE 2 MG TAB PO ×2 (00:32→12:44)
[2018-01-19] MEDS: PANTOPRAZOLE (EC) 40 MG TAB PO (05:46)
[2018-01-19] MEDS: HYDROCODONE/APAP (5/325) TAB PO ×2 (07:06→16:08)
[2018-01-19] MEDS: EMTRICITABINE/TENOFOVIR TAB PO (08:43)
[2018-01-19] MEDS: GABAPENTIN 300 MG CAP PO ×3 (08:43→21:04)
[2018-01-19] MEDS: morphine (ER) 15 MG TAB PO ×2 (08:43→21:03)
[2018-01-19] MEDS: CEFTRIAXONE 2 GM/50 ML (PMX) 50 ML IVPB ×2 (08:43→21:03)
[2018-01-19] MEDS: POLYETHYLENE GLYCOL 17 GM PACKET PO (08:43)
[2018-01-19] MEDS: SENNA/DOCUSATE NA (8.6MG/50MG) TAB PO ×2 (08:44→21:03)
[2018-01-19] MEDS: BISACODYL (EC) 5 MG TAB PO (16:08)
[2018-01-19 17:16] LABS: FLUORESCENT TREPONEMAL AB REACTIVE (NON-REACTIVE)
[2018-01-19 19:26] LABS: HEPATITIS B DELTA ANTIBODY NEGATIVE
[2018-01-19] MEDS: EFAVIRENZ 600 MG TAB PO (21:03)
[2018-01-20] MEDS: VANCOMYCIN 1 GM 250 ML IVPB ×2 (00:32→12:04)
[2018-01-20] MEDS: PANTOPRAZOLE (EC) 40 MG TAB PO (05:56)
[2018-01-20 06:19] LABS: ABNORMAL IP MESSAGE 1; HEMATOCRIT 29.1 % (42.0-52.0); HEMOGLOBIN 9.7 g/dl (14.0-18.0); MEAN CORPUSCULAR HEMOGLOBIN 28.3 pg (29.0-33.0); MEAN CORPUSCULAR HGB CONC 33.3 g/dl (32.0-37.0); MEAN CORPUSCULAR VOLUME 84.8 fl (82.0-101.0); MEAN PLATELET VOLUME 10.1 fl (7.4-10.4); NUCLEATED RED BLOOD CELLS% 1.8 /100WBC (0.0-0.0); PLATELET COUNT 152 10^3/UL (140-415); POSITIVE DIFF @See below; RED BLOOD COUNT 3.43 10^6/ul (4.70-6.10); RED CELL DISTRIBUTION WIDTH 12.5 % (11.5-14.5)
[2018-01-20 06:19] LABS: WHITE BLOOD COUNT 8.5 10^3/ul (4.8-10.8)
[2018-01-20 06:31] LABS: ADD MAN DIFF? YES
[2018-01-20 06:42] LABS: ALBUMIN 3.1 g/dl (3.3-4.9); ANION GAP 12 (8-16); BLOOD UREA NITROGEN 21 mg/dl (7-20); CALCIUM 11.3 mg/dl (8.4-10.2); CARBON DIOXIDE 33 mmol/L (21-31); CHLORIDE 97 mmol/L (97-110); CREATININE 1.21 mg/dl (0.61-1.24); GLUCOSE 108 mg/dl (70-220); MAGNESIUM 1.9 mg/dl (1.7-2.5); PHOSPHORUS 4.2 mg/dl (2.5-4.9); POTASSIUM 4.4 mmol/L (3.5-5.1); SODIUM 138 mmol/L (135-144)
[2018-01-20 08:51] LABS: ANISOCYTOSIS 2+ (0-0); BAND NEUTROPHILS #M 1.5 10^3/ul (0.0-0.6); BAND NEUTROPHILS % (M) 18 % (0-4); BASOPHILS % (M) 1 % (0-2); EOSINOPHILS % (M) 5 % (0-7); ERYTHROBLAST% (NRBC) (M) 3 % (0-0); HYPOCHROMASIA 1+ (0-0); LYMPHOCYTES #M 2.9 10^3/ul (0.8-2.9); LYMPHOCYTES % (M) 35 % (15-51); METAMYELOCYTES #M 0.1 10^3/ul (0.0-0.0); METAMYELOCYTES %M 2 % (0-0); MONOCYTE #M 0.4 10^3/ul (0.3-0.9); MONOCYTES % (M) 5 % (0-11); MYELOCYTES #M 0.2 10^3/ul (0.0-0.0); MYELOCYTES % (M) 3 % (0-0); PLATELET ESTIMATE NORMAL; POLYCHROMASIA 1+ (0-0); PROMYELOCYTES % (M) 1 % (0-0); REACTIVE LYMPHOCYTES% (M) 1 % (0-0); SEG NEUT #M 2.6 10^3/ul (1.6-7.5); SEGMENTED NEUTROPHILS (M) % 29 % (39-77); SMUDGE%M 12 % (0-0)
[2018-01-20] MEDS: POLYETHYLENE GLYCOL 17 GM PACKET PO (08:53)
[2018-01-20] MEDS: CEFTRIAXONE 2 GM/50 ML (PMX) 50 ML IVPB ×2 (08:53→21:19)
[2018-01-20] MEDS: GABAPENTIN 300 MG CAP PO ×3 (08:56→21:20)
[2018-01-20] MEDS: SENNA/DOCUSATE NA (8.6MG/50MG) TAB PO ×2 (08:56→21:20)
[2018-01-20] MEDS: morphine (ER) 15 MG TAB PO ×2 (08:56→21:20)
[2018-01-20] MEDS: EMTRICITABINE/TENOFOVIR TAB PO (08:56)
[2018-01-20] MEDS: HYDROCODONE/APAP (5/325) TAB PO (15:38)
[2018-01-20] MEDS ORDERED: CEPASTAT LOZENGE MT (19:00)
[2018-01-20] MEDS: EFAVIRENZ 600 MG TAB PO (21:20)
[2018-01-20] MEDS: PHENOL 1.4% SOLN 180 ML BTL MT (21:34)
[2018-01-21 02:13] LABS: VANCOMYCIN,TROUGH 14.6 ug/ml (10.0-20.0)
[2018-01-21] MEDS: VANCOMYCIN 1 GM 250 ML IVPB ×2 (02:20→12:04)
[2018-01-21] MEDS: PANTOPRAZOLE (EC) 40 MG TAB PO (05:53)
[2018-01-21] MEDS: PHENOL 1.4% SOLN 180 ML BTL MT ×2 (06:08→08:49)
[2018-01-21 07:05] LABS: ADD MAN DIFF? NO
[2018-01-21 07:10] LABS: WHITE BLOOD COUNT 8.7 10^3/ul (4.8-10.8)
[2018-01-21 07:10] LABS: ABNORMAL IP MESSAGE 1; BASOPHIL # 0.1 10^3/ul (0.0-0.1); EOSINOPHILS # 0.2 10^3/ul (0.0-0.5); EOSINOPHILS % 1.7 % (0.0-7.0); HEMATOCRIT 30.5 % (42.0-52.0); HEMOGLOBIN 10.2 g/dl (14.0-18.0); LYMPHOCYTES # 3.7 10^3/ul (0.8-2.9); LYMPHOCYTES % 42.4 % (15.0-51.0); MEAN CORPUSCULAR HEMOGLOBIN 28.3 pg (29.0-33.0); MEAN CORPUSCULAR HGB CONC 33.4 g/dl (32.0-37.0); MEAN CORPUSCULAR VOLUME 84.5 fl (82.0-101.0); MEAN PLATELET VOLUME 10.3 fl (7.4-10.4); MONOCYTE # 0.7 10^3/ul (0.3-0.9); MONOCYTES % 7.6 % (0.0-11.0); NEUTROPHIL # 3.1 10^3/ul (1.6-7.5); NUCLEATED RED BLOOD CELLS # 0.2 10^3/ul (0.0-0.0); NUCLEATED RED BLOOD CELLS% 2.1 /100WBC (0.0-0.0); PLATELET COUNT 154 10^3/UL (140-415); POSITIVE DIFF @See below; RED BLOOD COUNT 3.61 10^6/ul (4.70-6.10); RED CELL DISTRIBUTION WIDTH 12.3 % (11.5-14.5)
[2018-01-21 07:40] LABS: ALBUMIN 3.5 g/dl (3.3-4.9); ANION GAP 14 (8-16); BLOOD UREA NITROGEN 22 mg/dl (7-20); CALCIUM 12.1 mg/dl (8.4-10.2); CARBON DIOXIDE 33 mmol/L (21-31); CHLORIDE 96 mmol/L (97-110); GLUCOSE 104 mg/dl (70-220); MAGNESIUM 1.9 mg/dl (1.7-2.5); POTASSIUM 4.6 mmol/L (3.5-5.1); SODIUM 138 mmol/L (135-144)
[2018-01-21 08:25] LABS: ANISOCYTOSIS 1+ (0-0); BAND NEUTROPHILS #M 0.6 10^3/ul (0.0-0.6); BAND NEUTROPHILS % (M) 7 % (0-4); EOSINOPHILS % (M) 2 % (0-7); ERYTHROBLAST% (NRBC) (M) 1 % (0-0); GIANT THROMBO% (M) 2 % (0-0); LYMPHOCYTES #M 2.5 10^3/ul (0.8-2.9); LYMPHOCYTES % (M) 29 % (15-51); METAMYELOCYTES %M 1 % (0-0); MONOCYTE #M 0.6 10^3/ul (0.3-0.9); MONOCYTES % (M) 7 % (0-11); MYELOCYTES #M 0.3 10^3/ul (0.0-0.0); MYELOCYTES % (M) 4 % (0-0); PLATELET ESTIMATE NORMAL; POLYCHROMASIA 2+ (0-0); PROMYELOCYTES #M 0.2 10^3/ul (0-0); PROMYELOCYTES % (M) 3 % (0-0); REACTIVE LYMPHOCYTES #M 0.2 10^3/ul (0.0-0.0); REACTIVE LYMPHOCYTES% (M) 3 % (0-0); SEG NEUT #M 3.8 10^3/ul (1.6-7.5); SEGMENTED NEUTROPHILS (M) % 43 % (39-77); SMUDGE%M 10 % (0-0)
[2018-01-21] MEDS: CEFTRIAXONE 2 GM/50 ML (PMX) 50 ML IVPB ×2 (08:47→20:39)
[2018-01-21] MEDS: POLYETHYLENE GLYCOL 17 GM PACKET PO (08:47)
[2018-01-21] MEDS: EMTRICITABINE/TENOFOVIR TAB PO (08:48)
[2018-01-21] MEDS: SENNA/DOCUSATE NA (8.6MG/50MG) TAB PO ×2 (08:48→20:33)
[2018-01-21] MEDS: morphine (ER) 15 MG TAB PO ×2 (08:48→20:33)
[2018-01-21] MEDS: GABAPENTIN 300 MG CAP PO ×3 (08:48→20:33)
[2018-01-21] MEDS: NA PHOSPHATE/BIPHOS 133 ML ENEMA PR (10:57)
[2018-01-21] MEDS ORDERED: BISACODYL 10 MG SUPP PR (11:00)
[2018-01-21] MEDS: EFAVIRENZ 600 MG TAB PO (20:33)
[2018-01-22] MEDS: VANCOMYCIN 1 GM 250 ML IVPB ×2 (01:42→13:15)
[2018-01-22] MEDS: PANTOPRAZOLE (EC) 40 MG TAB PO (06:01)
[2018-01-22 06:35] LABS: ADD MAN DIFF? NO
[2018-01-22 06:39] LABS: ABNORMAL IP MESSAGE 1; BASOPHIL # 0.1 10^3/ul (0.0-0.1); BASOPHILS % 0.7 % (0.0-2.0); EOSINOPHILS # 0.2 10^3/ul (0.0-0.5); EOSINOPHILS % 2.1 % (0.0-7.0); HEMATOCRIT 30.7 % (42.0-52.0); HEMOGLOBIN 10.2 g/dl (14.0-18.0); LYMPHOCYTES % 35.7 % (15.0-51.0); MEAN CORPUSCULAR HEMOGLOBIN 28.1 pg (29.0-33.0); MEAN CORPUSCULAR HGB CONC 33.2 g/dl (32.0-37.0); MEAN CORPUSCULAR VOLUME 84.6 fl (82.0-101.0); MEAN PLATELET VOLUME 9.8 fl (7.4-10.4); MONOCYTES % 11.5 % (0.0-11.0); NEUTROPHILS % 36.5 % (39.0-77.0); NUCLEATED RED BLOOD CELLS # 0.2 10^3/ul (0.0-0.0); NUCLEATED RED BLOOD CELLS% 1.9 /100WBC (0.0-0.0); PLATELET COUNT 139 10^3/UL (140-415); POSITIVE DIFF @See below; RED BLOOD COUNT 3.63 10^6/ul (4.70-6.10); RED CELL DISTRIBUTION WIDTH 12.5 % (11.5-14.5)
[2018-01-22 06:39] LABS: WHITE BLOOD COUNT 8.3 10^3/ul (4.8-10.8)
[2018-01-22 07:02] LABS: ALBUMIN 3.5 g/dl (3.3-4.9); ANION GAP 15 (8-16); BLOOD UREA NITROGEN 24 mg/dl (7-20); CALCIUM 12.8 mg/dl (8.4-10.2); CARBON DIOXIDE 30 mmol/L (21-31); CHLORIDE 97 mmol/L (97-110); CREATININE 1.25 mg/dl (0.61-1.24); GLUCOSE 117 mg/dl (70-220); PHOSPHORUS 3.8 mg/dl (2.5-4.9); POTASSIUM 4.4 mmol/L (3.5-5.1); SODIUM 138 mmol/L (135-144)
[2018-01-22] MEDS: CEFTRIAXONE 2 GM/50 ML (PMX) 50 ML IVPB ×2 (08:23→20:17)
[2018-01-22] MEDS: GABAPENTIN 300 MG CAP PO ×2 (08:23→13:15)
[2018-01-22] MEDS: EMTRICITABINE/TENOFOVIR TAB PO (08:23)
[2018-01-22] MEDS: morphine (ER) 15 MG TAB PO ×2 (08:26→20:17)
[2018-01-22] MEDS: SENNA/DOCUSATE NA (8.6MG/50MG) TAB PO ×2 (08:27→20:17)
[2018-01-22] MEDS: POLYETHYLENE GLYCOL 17 GM PACKET PO (08:27)
[2018-01-22] MEDS: PREGABALIN 50 MG CAP PO (20:16)
[2018-01-22] MEDS: EFAVIRENZ 600 MG TAB PO (20:16)
[2018-01-22] MEDS: HYDROCODONE/APAP (5/325) TAB PO (21:21)
[2018-01-23] MEDS: VANCOMYCIN 1 GM 250 ML IVPB (00:55)
[2018-01-23] MEDS: PANTOPRAZOLE (EC) 40 MG TAB PO (05:44)
[2018-01-23] MEDS: HYDROCODONE/APAP (5/325) TAB PO (06:04)
[2018-01-23 07:13] LABS: ANION GAP 12 (8-16); BLOOD UREA NITROGEN 28 mg/dl (7-20); CARBON DIOXIDE 32 mmol/L (21-31); CHLORIDE 97 mmol/L (97-110); CREATININE 1.29 mg/dl (0.61-1.24); GLUCOSE 105 mg/dl (70-220); MAGNESIUM 2.1 mg/dl (1.7-2.5); POTASSIUM 4.2 mmol/L (3.5-5.1); SODIUM 137 mmol/L (135-144)
[2018-01-23 07:18] LABS: CALCIUM 13.3 mg/dl (8.4-10.2)
[2018-01-23] MEDS: CEFTRIAXONE 2 GM/50 ML (PMX) 50 ML IVPB ×2 (08:52→20:27)
[2018-01-23] MEDS: PREGABALIN 50 MG CAP PO ×3 (08:52→20:27)
[2018-01-23] MEDS: SENNA/DOCUSATE NA (8.6MG/50MG) TAB PO ×2 (08:53→20:27)
[2018-01-23] MEDS: POLYETHYLENE GLYCOL 17 GM PACKET PO (08:54)
[2018-01-23] MEDS: morphine (ER) 15 MG TAB PO ×2 (08:54→20:28)
[2018-01-23] MEDS: EMTRICITABINE/TENOFOVIR TAB PO (08:54)
[2018-01-23] MEDS: SOD CHLORIDE 0.9% 1,000 ML IV ×2 (11:37→20:28)
[2018-01-23] MEDS: PENICILLIN G BENZ 2.4 MIL UNIT SYG IM (12:30)
[2018-01-23] MEDS: ZOLEDRONIC ACID 4 MG in SOD CHLORIDE 0.9% 100 ML IVPB (12:36)
[2018-01-23] MEDS: VANCOMYCIN 750 MG in SOD CHLORIDE 0.9% 150 ML IVPB (15:59)
[2018-01-23 17:58] LABS: ALANINE AMINOTRANSFERASE 31 IU/L (13-69); ALBUMIN 3.5 g/dl (3.3-4.9); ALBUMIN/GLOBULIN RATIO 0.77; ALKALINE PHOSPHATASE 160 IU/L (42-121); ANION GAP 11 (8-16); ASPARTATE AMINO TRANSFERASE 65 IU/L (15-46); BILIRUBIN,INDIRECT 0.4 mg/dl (0-1.1); BILIRUBIN,TOTAL 0.4 mg/dl (0.2-1.3); BLOOD UREA NITROGEN 29 mg/dl (7-20); CALCIUM 12.9 mg/dl (8.4-10.2); CARBON DIOXIDE 28 mmol/L (21-31); CHLORIDE 99 mmol/L (97-110); GLUCOSE 112 mg/dl (70-220); POTASSIUM 4.3 mmol/L (3.5-5.1); SODIUM 134 mmol/L (135-144)
[2018-01-23] MEDS: EFAVIRENZ 600 MG TAB PO (20:27)
[2018-01-24] MEDS: ACETAMINOPHEN 325 MG TAB PO ×2 (01:17→12:19)
[2018-01-24 01:21] LABS: ADD UMIC NO; UR ASCORBIC ACID NEGATIVE (NEGATIVE); UR BILIRUBIN (Dip) NEGATIVE (NEGATIVE); UR BLOOD (Dip) NEGATIVE (NEGATIVE); UR CLARITY CLEAR (CLEAR); UR COLOR STRAW (YELLOW); UR GLUCOSE (Dip) NEGATIVE (NEGATIVE); UR KETONES (Dip) NEGATIVE (NEGATIVE); UR LEUKOCYTE ESTERASE (Dip) NEGATIVE Leu/ul (NEGATIVE); UR NITRITE (Dip) NEGATIVE (NEGATIVE); UR TOTAL PROTEIN (Dip) NEGATIVE (NEGATIVE); UR UROBILINOGEN (Dip) NEGATIVE (NEGATIVE)
[2018-01-24 02:08] LABS: SODIUM,URINE RANDOM 83 mmol/L (30-90)
[2018-01-24 02:12] LABS: CREATININE,URINE RANDOM 31.07 mg/dl (20-370); PROTEIN/CREAT RATIO 1.25 RATIO
[2018-01-24 02:13] LABS: CREATININE,URINE RANDOM 31.22 mg/dl (20-370)
[2018-01-24] MEDS: VANCOMYCIN 750 MG in SOD CHLORIDE 0.9% 150 ML IVPB ×2 (04:16→15:13)
[2018-01-24] MEDS: HYDROCODONE/APAP (5/325) TAB PO ×2 (06:26→20:18)
[2018-01-24] MEDS: PANTOPRAZOLE (EC) 40 MG TAB PO (06:26)
[2018-01-24] MEDS: BISACODYL (EC) 5 MG TAB PO (06:26)
[2018-01-24] MEDS: SOD CHLORIDE 0.9% 1,000 ML IV ×3 (06:27→20:50)
[2018-01-24 08:04] LABS: ADD MAN DIFF? NO
[2018-01-24 08:07] LABS: WHITE BLOOD COUNT 7.2 10^3/ul (4.8-10.8)
[2018-01-24 08:07] LABS: ABNORMAL IP MESSAGE 1; BASOPHIL # 0.1 10^3/ul (0.0-0.1); BASOPHILS % 0.7 % (0.0-2.0); EOSINOPHILS # 0.1 10^3/ul (0.0-0.5); EOSINOPHILS % 1.5 % (0.0-7.0); HEMATOCRIT 27.6 % (42.0-52.0); HEMOGLOBIN 9.3 g/dl (14.0-18.0); LYMPHOCYTES # 2.6 10^3/ul (0.8-2.9); LYMPHOCYTES % 36.3 % (15.0-51.0); MEAN CORPUSCULAR HEMOGLOBIN 28.3 pg (29.0-33.0); MEAN CORPUSCULAR HGB CONC 33.7 g/dl (32.0-37.0); MEAN CORPUSCULAR VOLUME 83.9 fl (82.0-101.0); MONOCYTE # 0.7 10^3/ul (0.3-0.9); MONOCYTES % 9.9 % (0.0-11.0); NEUTROPHIL # 2.8 10^3/ul (1.6-7.5); NEUTROPHILS % 39.7 % (39.0-77.0); NUCLEATED RED BLOOD CELLS # 0.1 10^3/ul (0.0-0.0); NUCLEATED RED BLOOD CELLS% 1.3 /100WBC (0.0-0.0); PLATELET COUNT 117 10^3/UL (140-415); POSITIVE DIFF @See below; RED BLOOD COUNT 3.29 10^6/ul (4.70-6.10); RED CELL DISTRIBUTION WIDTH 12.7 % (11.5-14.5)
[2018-01-24 08:36] LABS: ANION GAP 11 (8-16); BLOOD UREA NITROGEN 27 mg/dl (7-20); CALCIUM 11.8 mg/dl (8.4-10.2); CARBON DIOXIDE 29 mmol/L (21-31); CHLORIDE 100 mmol/L (97-110); GLUCOSE 104 mg/dl (70-220); MAGNESIUM 1.9 mg/dl (1.7-2.5); PHOSPHORUS 3.3 mg/dl (2.5-4.9); SODIUM 136 mmol/L (135-144)
[2018-01-24] MEDS: PREGABALIN 50 MG CAP PO (09:19)
[2018-01-24] MEDS: CEFTRIAXONE 2 GM/50 ML (PMX) 50 ML IVPB ×2 (09:19→20:19)
[2018-01-24] MEDS: morphine (ER) 15 MG TAB PO (09:19)
[2018-01-24] MEDS: SENNA/DOCUSATE NA (8.6MG/50MG) TAB PO ×2 (09:19→20:18)
[2018-01-24] MEDS: EMTRICITABINE/TENOFOVIR TAB PO (09:20)
[2018-01-24 13:45] LABS: LACTIC ACID 3.8 mmol/L (0.5-2.0)
[2018-01-24] MEDS: EFAVIRENZ 600 MG TAB PO (20:18)
[2018-01-25] MEDS: SOD CHLORIDE 0.9% 1,000 ML IV ×2 (01:44→03:39)
[2018-01-25] MEDS: HYDROCODONE/APAP (5/325) TAB PO (01:45)
[2018-01-25] MEDS: VANCOMYCIN 750 MG in SOD CHLORIDE 0.9% 150 ML IVPB ×2 (03:36→15:14)
[2018-01-25 05:59] LABS: ADD MAN DIFF? NO
[2018-01-25] MEDS: PANTOPRAZOLE (EC) 40 MG TAB PO (06:00)
[2018-01-25 06:04] LABS: ABNORMAL IP MESSAGE 1; BASOPHILS % 0.6 % (0.0-2.0); EOSINOPHILS # 0.1 10^3/ul (0.0-0.5); EOSINOPHILS % 1.7 % (0.0-7.0); HEMATOCRIT 24.7 % (42.0-52.0); HEMOGLOBIN 8.4 g/dl (14.0-18.0); LYMPHOCYTES # 2.9 10^3/ul (0.8-2.9); LYMPHOCYTES % 41.1 % (15.0-51.0); MEAN CORPUSCULAR HEMOGLOBIN 28.3 pg (29.0-33.0); MEAN CORPUSCULAR VOLUME 83.2 fl (82.0-101.0); MONOCYTE # 0.5 10^3/ul (0.3-0.9); MONOCYTES % 7.6 % (0.0-11.0); NEUTROPHIL # 2.6 10^3/ul (1.6-7.5); NEUTROPHILS % 37.4 % (39.0-77.0); NUCLEATED RED BLOOD CELLS # 0.1 10^3/ul (0.0-0.0); NUCLEATED RED BLOOD CELLS% 1.3 /100WBC (0.0-0.0); PLATELET COUNT 110 10^3/UL (140-415); POSITIVE DIFF @See below; RED BLOOD COUNT 2.97 10^6/ul (4.70-6.10); RED CELL DISTRIBUTION WIDTH 12.6 % (11.5-14.5)
[2018-01-25 06:21] LABS: AMMONIA < 9 umol/l (9-30)
[2018-01-25 07:43] LABS: ANION GAP 12 (8-16); BLOOD UREA NITROGEN 22 mg/dl (7-20); CALCIUM 9.4 mg/dl (8.4-10.2); CARBON DIOXIDE 27 mmol/L (21-31); CHLORIDE 102 mmol/L (97-110); CREATININE 1.06 mg/dl (0.61-1.24); GLUCOSE 97 mg/dl (70-220); MAGNESIUM 1.8 mg/dl (1.7-2.5); PHOSPHORUS 1.9 mg/dl (2.5-4.9); POTASSIUM 3.7 mmol/L (3.5-5.1); SODIUM 137 mmol/L (135-144)
[2018-01-25] MEDS: LORAZEPAM 1 MG TAB PO ×2 (07:59→13:53)
[2018-01-25] MEDS: SENNA/DOCUSATE NA (8.6MG/50MG) TAB PO ×2 (09:00→21:53)
[2018-01-25] MEDS: EMTRICITABINE/TENOFOVIR TAB PO (09:36)
[2018-01-25] MEDS: CEFTRIAXONE 2 GM/50 ML (PMX) 50 ML IVPB ×2 (09:36→21:53)
[2018-01-25 09:56] LABS: ANISOCYTOSIS 1+ (0-0); BAND NEUTROPHILS #M 0.9 10^3/ul (0.0-0.6); BAND NEUTROPHILS % (M) 14 % (0-4); BASOPHILS % (M) 1 % (0-2); EOSINOPHILS % (M) 3 % (0-7); LYMPHOCYTES #M 2.9 10^3/ul (0.8-2.9); LYMPHOCYTES % (M) 42 % (15-51); METAMYELOCYTES #M 0.2 10^3/ul (0.0-0.0); METAMYELOCYTES %M 3 % (0-0); MONOCYTE #M 0.2 10^3/ul (0.3-0.9); MONOCYTES % (M) 4 % (0-11); MYELOCYTES #M 0.2 10^3/ul (0.0-0.0); MYELOCYTES % (M) 4 % (0-0); PLATELET ESTIMATE DECREASED; POLYCHROMASIA 1+ (0-0); SEGMENTED NEUTROPHILS (M) % 28 % (39-77); SMUDGE%M 17 % (0-0); TEAR DROP CELLS 1+ (0-0)
[2018-01-25] MEDS: PENICILLIN G BENZ 2.4 MIL UNIT SYG IM (13:47)
[2018-01-25] MEDS ORDERED: SOD CHLORIDE 0.9% IV (15:30)
[2018-01-25] MEDS ORDERED: POTASSIUM PHOSPHATE IV (15:30)
[2018-01-25 16:22] LABS: VANCOMYCIN,TROUGH 9.2 ug/ml (10.0-20.0)
[2018-01-25] MEDS: POTASSIUM PHOSPHATE IV (16:49)
[2018-01-25] MEDS: SOD CHLORIDE 0.9% IV (16:49)
[2018-01-25] MEDS: EFAVIRENZ 600 MG TAB PO (21:53)
[2018-01-26] MEDS: HALOPERIDOL 5 MG INJ IM ×2 (01:23→19:13)
[2018-01-26] MEDS: VANCOMYCIN 1 GM 250 ML IVPB ×2 (03:36→14:12)
[2018-01-26] MEDS: POTASSIUM PHOSPHATE IV ×3 (05:17→21:05)
[2018-01-26] MEDS: SOD CHLORIDE 0.9% IV ×3 (05:17→21:05)
[2018-01-26] MEDS: PANTOPRAZOLE (EC) 40 MG TAB PO (05:19)
[2018-01-26 06:22] LABS: ADD MAN DIFF? NO
[2018-01-26 06:35] LABS: ABNORMAL IP MESSAGE 1; BASOPHILS % 0.6 % (0.0-2.0); EOSINOPHILS # 0.1 10^3/ul (0.0-0.5); EOSINOPHILS % 1.5 % (0.0-7.0); HEMATOCRIT 23.2 % (42.0-52.0); LYMPHOCYTES # 2.2 10^3/ul (0.8-2.9); LYMPHOCYTES % 33.7 % (15.0-51.0); MEAN CORPUSCULAR HEMOGLOBIN 28.8 pg (29.0-33.0); MEAN CORPUSCULAR HGB CONC 34.5 g/dl (32.0-37.0); MEAN CORPUSCULAR VOLUME 83.5 fl (82.0-101.0); MEAN PLATELET VOLUME 9.5 fl (7.4-10.4); MONOCYTE # 0.7 10^3/ul (0.3-0.9); MONOCYTES % 10.4 % (0.0-11.0); NEUTROPHIL # 2.8 10^3/ul (1.6-7.5); NEUTROPHILS % 42.7 % (39.0-77.0); NUCLEATED RED BLOOD CELLS # 0.1 10^3/ul (0.0-0.0); NUCLEATED RED BLOOD CELLS% 1.7 /100WBC (0.0-0.0); PLATELET COUNT 104 10^3/UL (140-415); POSITIVE DIFF @See below; RED BLOOD COUNT 2.78 10^6/ul (4.70-6.10); RED CELL DISTRIBUTION WIDTH 12.4 % (11.5-14.5)
[2018-01-26 06:35] LABS: WHITE BLOOD COUNT 6.5 10^3/ul (4.8-10.8)
[2018-01-26 06:55] LABS: LACTIC ACID 3.6 mmol/L (0.5-2.0)
[2018-01-26 07:04] LABS: ALANINE AMINOTRANSFERASE 29 IU/L (13-69); ALBUMIN 2.9 g/dl (3.3-4.9); ALKALINE PHOSPHATASE 114 IU/L (42-121); ANION GAP 15 (8-16); ASPARTATE AMINO TRANSFERASE 62 IU/L (15-46); BILIRUBIN,INDIRECT 0.2 mg/dl (0-1.1); BILIRUBIN,TOTAL 0.2 mg/dl (0.2-1.3); BLOOD UREA NITROGEN 16 mg/dl (7-20); CALCIUM 8.6 mg/dl (8.4-10.2); CARBON DIOXIDE 24 mmol/L (21-31); CHLORIDE 101 mmol/L (97-110); CREATININE 1.09 mg/dl (0.61-1.24); GLUCOSE 111 mg/dl (70-220); MAGNESIUM 1.8 mg/dl (1.7-2.5); PHOSPHORUS 2.1 mg/dl (2.5-4.9); POTASSIUM 3.4 mmol/L (3.5-5.1); SODIUM 137 mmol/L (135-144); TOTAL PROTEIN 6.5 g/dl (6.1-8.1)
[2018-01-26] MEDS: EMTRICITABINE/TENOFOVIR TAB PO (08:26)
[2018-01-26] MEDS: SENNA/DOCUSATE NA (8.6MG/50MG) TAB PO (08:26)
[2018-01-26] MEDS: ACETAMINOPHEN 325 MG TAB PO (08:33)
[2018-01-26] MEDS: CEFTRIAXONE 2 GM/50 ML (PMX) 50 ML IVPB ×2 (09:00→20:10)
[2018-01-26] MEDS: POTASSIUM CHLORIDE IV ×2 (11:14→21:05)
[2018-01-26] MEDS: QUETIAPINE 25 MG TAB PO ×2 (11:14→20:09)
[2018-01-26] MEDS: POTASSIUM CHLORIDE (SR) 8 MEQ CAP PO (11:14)
[2018-01-26] MEDS: HYDROCODONE/APAP (5/325) TAB PO ×2 (14:12→20:09)
[2018-01-26] MEDS: EFAVIRENZ 600 MG TAB PO (20:09)
[2018-01-27] MEDS: LORAZEPAM 2 MG INJ IV ×2 (01:01→10:36)
[2018-01-27] MEDS: ACETAMINOPHEN 325 MG TAB PO ×2 (01:41→17:01)
[2018-01-27 03:06] LABS: OCCULT BLOOD STOOL NEGATIVE (NEGATIVE)
[2018-01-27] MEDS: VANCOMYCIN 1 GM 250 ML IVPB ×2 (03:46→15:30)
[2018-01-27] MEDS: PANTOPRAZOLE (EC) 40 MG TAB PO (05:26)
[2018-01-27] MEDS: POTASSIUM CHLORIDE IV ×2 (05:26→16:57)
[2018-01-27] MEDS: SOD CHLORIDE 0.9% IV ×2 (05:26→16:57)
[2018-01-27] MEDS: POTASSIUM PHOSPHATE IV ×2 (05:26→16:57)
[2018-01-27] MEDS: HYDROCODONE/APAP (5/325) TAB PO ×2 (07:08→21:12)
[2018-01-27 08:12] LABS: ADD MAN DIFF? NO
[2018-01-27 08:33] LABS: LACTIC ACID 3.2 mmol/L (0.5-2.0)
[2018-01-27 08:37] LABS: ALANINE AMINOTRANSFERASE 40 IU/L (13-69); ALBUMIN 3.1 g/dl (3.3-4.9); ALBUMIN/GLOBULIN RATIO 0.79; ALKALINE PHOSPHATASE 129 IU/L (42-121); ANION GAP 14 (8-16); ASPARTATE AMINO TRANSFERASE 270 IU/L (15-46); BILIRUBIN,INDIRECT 0.3 mg/dl (0-1.1); BILIRUBIN,TOTAL 0.3 mg/dl (0.2-1.3); BLOOD UREA NITROGEN 15 mg/dl (7-20); CARBON DIOXIDE 21 mmol/L (21-31); CHLORIDE 107 mmol/L (97-110); CREATININE 1.12 mg/dl (0.61-1.24); GLUCOSE 111 mg/dl (70-220); MAGNESIUM 1.9 mg/dl (1.7-2.5); PHOSPHORUS 2.7 mg/dl (2.5-4.9); POTASSIUM 3.9 mmol/L (3.5-5.1); SODIUM 138 mmol/L (135-144)
[2018-01-27 08:48] LABS: INR 1.32; PROTIME 16.6 Sec (11.9-14.9); PT RATIO 1.3
[2018-01-27] MEDS: CEFTRIAXONE 2 GM/50 ML (PMX) 50 ML IVPB (08:48)
[2018-01-27 08:49] LABS: PARTIAL THROMBOPLASTIN TIME 41.9 Sec (25.0-35.0)
[2018-01-27] MEDS: SENNA/DOCUSATE NA (8.6MG/50MG) TAB PO (08:49)
[2018-01-27] MEDS: QUETIAPINE 25 MG TAB PO ×2 (08:49→21:10)
[2018-01-27] MEDS: EMTRICITABINE/TENOFOVIR TAB PO (08:50)
[2018-01-27 08:52] LABS: ABNORMAL IP MESSAGE 1; BASOPHILS % 0.7 % (0.0-2.0); EOSINOPHILS # 0.1 10^3/ul (0.0-0.5); EOSINOPHILS % 1.8 % (0.0-7.0); HEMATOCRIT 23.5 % (42.0-52.0); LYMPHOCYTES # 2.3 10^3/ul (0.8-2.9); LYMPHOCYTES % 37.7 % (15.0-51.0); MEAN CORPUSCULAR HEMOGLOBIN 28.1 pg (29.0-33.0); MEAN CORPUSCULAR VOLUME 82.5 fl (82.0-101.0); MONOCYTE # 0.5 10^3/ul (0.3-0.9); MONOCYTES % 8.1 % (0.0-11.0); NEUTROPHIL # 2.6 10^3/ul (1.6-7.5); NEUTROPHILS % 42.4 % (39.0-77.0); NUCLEATED RED BLOOD CELLS # 0.1 10^3/ul (0.0-0.0); NUCLEATED RED BLOOD CELLS% 1.5 /100WBC (0.0-0.0); PLATELET COUNT 90 10^3/UL (140-415); POSITIVE DIFF @See below; RED BLOOD COUNT 2.85 10^6/ul (4.70-6.10); RED CELL DISTRIBUTION WIDTH 12.8 % (11.5-14.5)
[2018-01-27 08:52] LABS: WHITE BLOOD COUNT 6.2 10^3/ul (4.8-10.8)
[2018-01-27 10:06] LABS: D-DIMER > 10000.00 ng/ml (<460)
[2018-01-27 10:33] LABS: ANISOCYTOSIS 1+ (0-0); BAND NEUTROPHILS #M 1.4 10^3/ul (0.0-0.6); BAND NEUTROPHILS % (M) 24 % (0-4); BASOPHILS % (M) 1 % (0-2); EOSINOPHILS % (M) 2 % (0-7); ERYTHROBLAST% (NRBC) (M) 1 % (0-0); GIANT THROMBO% (M) 1 % (0-0); LYMPHOCYTES #M 2.2 10^3/ul (0.8-2.9); LYMPHOCYTES % (M) 36 % (15-51); METAMYELOCYTES #M 0.1 10^3/ul (0.0-0.0); METAMYELOCYTES %M 2 % (0-0); MICROCYTOSIS 1+ (0-0); MONOCYTE #M 0.3 10^3/ul (0.3-0.9); MONOCYTES % (M) 5 % (0-11); MYELOCYTES % (M) 1 % (0-0); PLATELET ESTIMATE DECREASED; POLYCHROMASIA 1+ (0-0); PROMYELOCYTES #M 0.1 10^3/ul (0-0); PROMYELOCYTES % (M) 2 % (0-0); REACTIVE LYMPHOCYTES #M 0.2 10^3/ul (0.0-0.0); REACTIVE LYMPHOCYTES% (M) 4 % (0-0); SEG NEUT #M 1.5 10^3/ul (1.6-7.5); SEGMENTED NEUTROPHILS (M) % 23 % (39-77); SMUDGE%M 28 % (0-0)
[2018-01-27 11:42] LABS: LACTATE DEHYDROGENASE 23498 IU/L (313-618)
[2018-01-27] MEDS: FLUCONAZOLE 400 MG/NS (PMX) 200 ML IVPB (11:46)
[2018-01-27] MEDS: DOLUTEGRAVIR SODIUM 50 MG TABLET PO (19:30)
[2018-01-27] MEDS: MEROPENEM 1 GM/50ML(PMX) 50 ML IVPB (21:10)
[2018-01-28] MEDS: ACETAMINOPHEN 325 MG TAB PO ×2 (00:22→15:40)
[2018-01-28] MEDS: LORAZEPAM 2 MG INJ IV (01:54)
[2018-01-28] MEDS: POTASSIUM PHOSPHATE IV ×2 (01:55→09:10)
[2018-01-28] MEDS: SOD CHLORIDE 0.9% IV ×2 (01:55→09:10)
[2018-01-28] MEDS: POTASSIUM CHLORIDE IV ×2 (01:55→09:10)
[2018-01-28 02:25] LABS: ADD MAN DIFF? NO
[2018-01-28 02:27] LABS: WHITE BLOOD COUNT 5.1 10^3/ul (4.8-10.8)
[2018-01-28 02:27] LABS: ABNORMAL IP MESSAGE 1; BASOPHILS % 0.4 % (0.0-2.0); EOSINOPHILS # 0.1 10^3/ul (0.0-0.5); EOSINOPHILS % 1.4 % (0.0-7.0); HEMATOCRIT 23.8 % (42.0-52.0); HEMOGLOBIN 7.9 g/dl (14.0-18.0); LYMPHOCYTES # 1.9 10^3/ul (0.8-2.9); LYMPHOCYTES % 36.9 % (15.0-51.0); MEAN CORPUSCULAR HEMOGLOBIN 27.6 pg (29.0-33.0); MEAN CORPUSCULAR HGB CONC 33.2 g/dl (32.0-37.0); MEAN CORPUSCULAR VOLUME 83.2 fl (82.0-101.0); MEAN PLATELET VOLUME 10.3 fl (7.4-10.4); MONOCYTE # 0.5 10^3/ul (0.3-0.9); MONOCYTES % 10.5 % (0.0-11.0); NEUTROPHIL # 2.2 10^3/ul (1.6-7.5); NEUTROPHILS % 44.1 % (39.0-77.0); NUCLEATED RED BLOOD CELLS # 0.1 10^3/ul (0.0-0.0); NUCLEATED RED BLOOD CELLS% 2.2 /100WBC (0.0-0.0); PLATELET COUNT 72 10^3/UL (140-415); POSITIVE DIFF @See below; RED BLOOD COUNT 2.86 10^6/ul (4.70-6.10)
[2018-01-28 02:48] LABS: ANION GAP 16 (8-16); BLOOD UREA NITROGEN 19 mg/dl (7-20); CALCIUM 7.5 mg/dl (8.4-10.2); CARBON DIOXIDE 20 mmol/L (21-31); CHLORIDE 107 mmol/L (97-110); CREATININE 1.18 mg/dl (0.61-1.24); GLUCOSE 141 mg/dl (70-220); PHOSPHORUS 3.5 mg/dl (2.5-4.9); POTASSIUM 4.2 mmol/L (3.5-5.1); SODIUM 139 mmol/L (135-144)
[2018-01-28 03:02] LABS: VANCOMYCIN,TROUGH 13.6 ug/ml (10.0-20.0)
[2018-01-28] MEDS: VANCOMYCIN 1 GM 250 ML IVPB ×2 (03:38→14:48)
[2018-01-28] MEDS: PANTOPRAZOLE (EC) 40 MG TAB PO (06:06)
[2018-01-28] MEDS: HYDROCODONE/APAP (5/325) TAB PO ×2 (06:06→23:29)
[2018-01-28] MEDS: DOLUTEGRAVIR SODIUM 50 MG TABLET PO (09:11)
[2018-01-28] MEDS: EMTRICITABINE/TENOFOVIR TAB PO (09:11)
[2018-01-28] MEDS: SENNA/DOCUSATE NA (8.6MG/50MG) TAB PO (09:11)
[2018-01-28] MEDS: MEROPENEM 1 GM/50ML(PMX) 50 ML IVPB ×2 (09:11→20:06)
[2018-01-28] MEDS: QUETIAPINE 25 MG TAB PO ×2 (09:13→20:07)
[2018-01-28] MEDS: FLUCONAZOLE 400 MG/NS (PMX) 200 ML IVPB (11:07)
[2018-01-28] MEDS: ACYCLOVIR 500 MG in SOD CHLORIDE 0.9% 100 ML IVPB (20:59)
[2018-01-29] MEDS: POTASSIUM CHLORIDE IV ×3 (01:55→08:44)
[2018-01-29] MEDS: SOD CHLORIDE 0.9% IV ×3 (01:55→08:44)
[2018-01-29] MEDS: POTASSIUM PHOSPHATE IV ×3 (01:55→08:44)
[2018-01-29] MEDS: LORAZEPAM 2 MG INJ IV (02:49)
[2018-01-29] MEDS: VANCOMYCIN 1 GM 250 ML IVPB ×2 (03:56→14:38)
[2018-01-29] MEDS: PANTOPRAZOLE (EC) 40 MG TAB PO (05:20)
[2018-01-29] MEDS: ACETAMINOPHEN 325 MG TAB PO ×2 (05:20→15:52)
[2018-01-29] MEDS: ACYCLOVIR 500 MG in SOD CHLORIDE 0.9% 100 ML IVPB ×2 (05:21→13:22)
[2018-01-29 06:19] LABS: ADD MAN DIFF? NO
[2018-01-29 06:28] LABS: ABNORMAL IP MESSAGE 1; BASOPHILS % 0.4 % (0.0-2.0); EOSINOPHILS # 0.1 10^3/ul (0.0-0.5); EOSINOPHILS % 1.4 % (0.0-7.0); HEMATOCRIT 20.6 % (42.0-52.0); LYMPHOCYTES # 2.3 10^3/ul (0.8-2.9); LYMPHOCYTES % 48.1 % (15.0-51.0); MEAN CORPUSCULAR HEMOGLOBIN 28.5 pg (29.0-33.0); MEAN CORPUSCULAR VOLUME 83.7 fl (82.0-101.0); MEAN PLATELET VOLUME 10.4 fl (7.4-10.4); MONOCYTE # 0.5 10^3/ul (0.3-0.9); NEUTROPHIL # 1.7 10^3/ul (1.6-7.5); NUCLEATED RED BLOOD CELLS # 0.1 10^3/ul (0.0-0.0); NUCLEATED RED BLOOD CELLS% 2.5 /100WBC (0.0-0.0); PLATELET COUNT 72 10^3/UL (140-415); POSITIVE DIFF @See below; RED BLOOD COUNT 2.46 10^6/ul (4.70-6.10); RED CELL DISTRIBUTION WIDTH 13.3 % (11.5-14.5)
[2018-01-29 06:28] LABS: WHITE BLOOD COUNT 4.8 10^3/ul (4.8-10.8)
[2018-01-29 06:54] LABS: ANION GAP 16 (8-16); BLOOD UREA NITROGEN 17 mg/dl (7-20); CALCIUM 6.9 mg/dl (8.4-10.2); CARBON DIOXIDE 18 mmol/L (21-31); CHLORIDE 107 mmol/L (97-110); CREATININE 1.24 mg/dl (0.61-1.24); GLUCOSE 136 mg/dl (70-220); MAGNESIUM 2.1 mg/dl (1.7-2.5); PHOSPHORUS 1.9 mg/dl (2.5-4.9); SODIUM 137 mmol/L (135-144)
[2018-01-29 08:13] LABS: ANISOCYTOSIS 2+ (0-0); BAND NEUTROPHILS #M 0.5 10^3/ul (0.0-0.6); BAND NEUTROPHILS % (M) 12 % (0-4); EOSINOPHILS % (M) 1 % (0-7); ERYTHROBLAST% (NRBC) (M) 5 % (0-0); GIANT THROMBO% (M) 1 % (0-0); LYMPHOCYTES #M 2.4 10^3/ul (0.8-2.9); LYMPHOCYTES % (M) 51 % (15-51); METAMYELOCYTES %M 1 % (0-0); MICROCYTOSIS 2+ (0-0); MONOCYTE #M 0.2 10^3/ul (0.3-0.9); MONOCYTES % (M) 6 % (0-11); MYELOCYTES #M 0.1 10^3/ul (0.0-0.0); MYELOCYTES % (M) 3 % (0-0); PLATELET ESTIMATE DECREASED; POLYCHROMASIA 1+ (0-0); SEG NEUT #M 1.3 10^3/ul (1.6-7.5); SEGMENTED NEUTROPHILS (M) % 26 % (39-77); SMUDGE%M 9 % (0-0)
[2018-01-29] MEDS: QUETIAPINE 25 MG TAB PO ×2 (08:43→21:43)
[2018-01-29] MEDS: DOLUTEGRAVIR SODIUM 50 MG TABLET PO (08:43)
[2018-01-29] MEDS: SENNA/DOCUSATE NA (8.6MG/50MG) TAB PO (08:43)
[2018-01-29] MEDS: MEROPENEM 1 GM/50ML(PMX) 50 ML IVPB ×2 (08:43→21:42)
[2018-01-29] MEDS: EMTRICITABINE/TENOFOVIR TAB PO (08:43)
[2018-01-29] MEDS: CITALOPRAM 20 MG TAB PO (10:07)
[2018-01-29] MEDS: clonAZEPAM 0.5 MG TAB PO ×3 (10:07→21:43)
[2018-01-29] MEDS: FLUCONAZOLE 400 MG/NS (PMX) 200 ML IVPB (10:07)
[2018-01-29 13:18] LABS: HEMOGLOBIN 6.8 g/dl (14.0-18.0)
[2018-01-29 18:12] LABS: IMMEDIATE SPIN CROSSMATCH 1 1
[2018-01-29] MEDS: HYDROCODONE/APAP (5/325) TAB PO (21:43)
[2018-01-29] MEDS: ACYCLOVIR IVPB (23:52)
[2018-01-29] MEDS: SOD CHLORIDE 0.9% IVPB (23:52)
[2018-01-30] MEDS: POTASSIUM CHLORIDE IV ×3 (02:46→18:31)
[2018-01-30] MEDS: SOD CHLORIDE 0.9% IV ×3 (02:46→18:31)
[2018-01-30] MEDS: POTASSIUM PHOSPHATE IV ×3 (02:46→18:31)
[2018-01-30] MEDS: VANCOMYCIN 1 GM 250 ML IVPB ×2 (02:47→14:37)
[2018-01-30] MEDS: HYDROCODONE/APAP (5/325) TAB PO ×2 (03:20→20:12)
[2018-01-30] MEDS: LORAZEPAM 2 MG INJ IV (03:31)
[2018-01-30] MEDS: ACYCLOVIR IVPB ×3 (05:38→23:18)
[2018-01-30] MEDS: SOD CHLORIDE 0.9% IVPB ×3 (05:38→23:18)
[2018-01-30] MEDS: clonAZEPAM 0.5 MG TAB PO ×3 (05:39→22:00)
[2018-01-30] MEDS: PANTOPRAZOLE (EC) 40 MG TAB PO (05:39)
[2018-01-30 06:40] LABS: ADD MAN DIFF? NO
[2018-01-30 06:44] LABS: ABNORMAL IP MESSAGE 1; BASOPHILS % 0.6 % (0.0-2.0); EOSINOPHILS # 0.1 10^3/ul (0.0-0.5); EOSINOPHILS % 1.5 % (0.0-7.0); HEMATOCRIT 21.5 % (42.0-52.0); HEMOGLOBIN 7.4 g/dl (14.0-18.0); LYMPHOCYTES # 1.6 10^3/ul (0.8-2.9); LYMPHOCYTES % 45.5 % (15.0-51.0); MEAN CORPUSCULAR HEMOGLOBIN 28.6 pg (29.0-33.0); MEAN CORPUSCULAR HGB CONC 34.4 g/dl (32.0-37.0); MEAN PLATELET VOLUME 10.7 fl (7.4-10.4); MONOCYTE # 0.3 10^3/ul (0.3-0.9); MONOCYTES % 8.7 % (0.0-11.0); NEUTROPHIL # 1.3 10^3/ul (1.6-7.5); NEUTROPHILS % 38.5 % (39.0-77.0); NUCLEATED RED BLOOD CELLS # 0.1 10^3/ul (0.0-0.0); NUCLEATED RED BLOOD CELLS% 2.3 /100WBC (0.0-0.0); POSITIVE DIFF @See below; RED BLOOD COUNT 2.59 10^6/ul (4.70-6.10); RED CELL DISTRIBUTION WIDTH 13.4 % (11.5-14.5)
[2018-01-30 06:44] LABS: WHITE BLOOD COUNT 3.4 10^3/ul (4.8-10.8)
[2018-01-30 06:46] LABS: PLATELET COUNT 67 10^3/UL (140-415)
[2018-01-30 07:10] LABS: ALBUMIN 2.6 g/dl (3.3-4.9); ANION GAP 15 (8-16); BLOOD UREA NITROGEN 13 mg/dl (7-20); CALCIUM 6.8 mg/dl (8.4-10.2); CARBON DIOXIDE 19 mmol/L (21-31); CHLORIDE 109 mmol/L (97-110); CREATININE 1.16 mg/dl (0.61-1.24); GLUCOSE 93 mg/dl (70-220); MAGNESIUM 2.1 mg/dl (1.7-2.5); PHOSPHORUS 1.8 mg/dl (2.5-4.9); POTASSIUM 3.9 mmol/L (3.5-5.1); SODIUM 139 mmol/L (135-144)
[2018-01-30] MEDS: MEROPENEM 1 GM/50ML(PMX) 50 ML IVPB ×2 (08:38→20:12)
[2018-01-30] MEDS: DOLUTEGRAVIR SODIUM 50 MG TABLET PO (08:38)
[2018-01-30] MEDS: CITALOPRAM 20 MG TAB PO (08:38)
[2018-01-30] MEDS: EMTRICITABINE/TENOFOVIR TAB PO (08:38)
[2018-01-30] MEDS: QUETIAPINE 25 MG TAB PO ×2 (08:38→20:11)
[2018-01-30] MEDS: SENNA/DOCUSATE NA (8.6MG/50MG) TAB PO (08:39)
[2018-01-30] MEDS: FLUCONAZOLE 400 MG/NS (PMX) 200 ML IVPB (10:51)
[2018-01-30] MEDS: NEUTRA-PHOS 250 MG PACKET PO (10:51)
[2018-01-30] MEDS: ACETAMINOPHEN 325 MG TAB PO (12:38)
[2018-01-30 15:56] LABS: HAPTOGLOBIN 406 mg/dL (43-212)
[2018-01-31] MEDS: LORAZEPAM 2 MG INJ IV (00:30)
[2018-01-31 02:58] LABS: VANCOMYCIN,TROUGH 13.1 ug/ml (10.0-20.0)
[2018-01-31] MEDS: HYDROCODONE/APAP (5/325) TAB PO ×2 (03:38→15:38)
[2018-01-31] MEDS: VANCOMYCIN 1 GM 250 ML IVPB ×2 (03:40→15:37)
[2018-01-31] MEDS: clonAZEPAM 0.5 MG TAB PO ×3 (05:35→20:47)
[2018-01-31] MEDS: ACYCLOVIR IVPB ×3 (05:36→20:47)
[2018-01-31] MEDS: PANTOPRAZOLE (EC) 40 MG TAB PO (05:36)
[2018-01-31] MEDS: SOD CHLORIDE 0.9% IVPB ×3 (05:36→20:47)
[2018-01-31 07:41] LABS: ABNORMAL IP MESSAGE 1; HEMATOCRIT 22.2 % (42.0-52.0); HEMOGLOBIN 7.5 g/dl (14.0-18.0); MEAN CORPUSCULAR HEMOGLOBIN 28.1 pg (29.0-33.0); MEAN CORPUSCULAR HGB CONC 33.8 g/dl (32.0-37.0); MEAN CORPUSCULAR VOLUME 83.1 fl (82.0-101.0); MEAN PLATELET VOLUME 10.7 fl (7.4-10.4); NUCLEATED RED BLOOD CELLS% 2.8 /100WBC (0.0-0.0); PLATELET COUNT 91 10^3/UL (140-415); POSITIVE DIFF @See below; RED BLOOD COUNT 2.67 10^6/ul (4.70-6.10); RED CELL DISTRIBUTION WIDTH 13.7 % (11.5-14.5)
[2018-01-31 07:41] LABS: WHITE BLOOD COUNT 3.9 10^3/ul (4.8-10.8)
[2018-01-31 07:51] LABS: ADD MAN DIFF? YES
[2018-01-31 08:02] LABS: ALBUMIN 2.4 g/dl (3.3-4.9); ANION GAP 16 (8-16); BLOOD UREA NITROGEN 9 mg/dl (7-20); CALCIUM 6.5 mg/dl (8.4-10.2); CARBON DIOXIDE 20 mmol/L (21-31); CHLORIDE 106 mmol/L (97-110); CREATININE 1.04 mg/dl (0.61-1.24); GLUCOSE 93 mg/dl (70-220); MAGNESIUM 1.8 mg/dl (1.7-2.5); POTASSIUM 4.1 mmol/L (3.5-5.1); SODIUM 138 mmol/L (135-144)
[2018-01-31 08:47] LABS: IONIZED CALCIUM 0.9 mmol/L (1.1-1.4)
[2018-01-31] MEDS: EMTRICITABINE/TENOFOVIR TAB PO (08:50)
[2018-01-31] MEDS: CITALOPRAM 20 MG TAB PO (08:50)
[2018-01-31] MEDS: QUETIAPINE 25 MG TAB PO ×2 (08:50→20:47)
[2018-01-31] MEDS: SENNA/DOCUSATE NA (8.6MG/50MG) TAB PO (08:51)
[2018-01-31] MEDS: POTASSIUM PHOSPHATE IV ×2 (08:55→17:46)
[2018-01-31] MEDS: POTASSIUM CHLORIDE IV ×2 (08:55→17:46)
[2018-01-31] MEDS: SOD CHLORIDE 0.9% IV ×2 (08:55→17:46)
[2018-01-31] MEDS: MEROPENEM 1 GM/50ML(PMX) 50 ML IVPB ×2 (08:56→20:47)
[2018-01-31 09:37] LABS: ANISOCYTOSIS 2+ (0-0); BAND NEUTROPHILS #M 0.3 10^3/ul (0.0-0.6); BAND NEUTROPHILS % (M) 8 % (0-4); EOSINOPHILS % (M) 3 % (0-7); ERYTHROBLAST% (NRBC) (M) 4 % (0-0); GIANT THROMBO% (M) 1 % (0-0); LYMPHOCYTES #M 1.6 10^3/ul (0.8-2.9); LYMPHOCYTES % (M) 43 % (15-51); METAMYELOCYTES %M 2 % (0-0); MICROCYTOSIS 2+ (0-0); MONOCYTE #M 0.1 10^3/ul (0.3-0.9); MONOCYTES % (M) 5 % (0-11); MYELOCYTES #M 0.1 10^3/ul (0.0-0.0); MYELOCYTES % (M) 4 % (0-0); PLATELET ESTIMATE DECREASED; POLYCHROMASIA 1+ (0-0); REACTIVE LYMPHOCYTES #M 0.1 10^3/ul (0.0-0.0); REACTIVE LYMPHOCYTES% (M) 3 % (0-0); SEG NEUT #M 1.3 10^3/ul (1.6-7.5); SEGMENTED NEUTROPHILS (M) % 32 % (39-77); SMUDGE%M 19 % (0-0)
[2018-01-31] MEDS: ACETAMINOPHEN 325 MG TAB PO (10:07)
[2018-01-31] MEDS: DOLUTEGRAVIR SODIUM 50 MG TABLET PO (11:14)
[2018-01-31] MEDS: MAGNESIUM SULFATE 2 GM/50 ML 50 ML IVPB (11:26)
[2018-01-31] MEDS: FLUCONAZOLE 400 MG/NS (PMX) 200 ML IVPB (11:36)
[2018-01-31] MEDS: CALCIUM GLUCONATE 10% 1 GM in DEXTROSE 5% 100 ML IVPB (13:48)
[2018-02-01] MEDS: VANCOMYCIN 1 GM 250 ML IVPB ×2 (03:42→16:27)
[2018-02-01] MEDS: POTASSIUM PHOSPHATE IV ×3 (04:02→21:17)
[2018-02-01] MEDS: SOD CHLORIDE 0.9% IV ×3 (04:02→21:17)
[2018-02-01] MEDS: POTASSIUM CHLORIDE IV ×3 (04:02→21:17)
[2018-02-01 06:41] LABS: ADD MAN DIFF? NO
[2018-02-01 06:44] LABS: WHITE BLOOD COUNT 3.9 10^3/ul (4.8-10.8)
[2018-02-01 06:44] LABS: ABNORMAL IP MESSAGE 1; BASOPHILS % 0.5 % (0.0-2.0); EOSINOPHILS # 0.1 10^3/ul (0.0-0.5); EOSINOPHILS % 1.5 % (0.0-7.0); HEMOGLOBIN 7.6 g/dl (14.0-18.0); LYMPHOCYTES # 1.9 10^3/ul (0.8-2.9); LYMPHOCYTES % 48.6 % (15.0-51.0); MEAN CORPUSCULAR HEMOGLOBIN 28.6 pg (29.0-33.0); MEAN CORPUSCULAR HGB CONC 34.5 g/dl (32.0-37.0); MEAN CORPUSCULAR VOLUME 82.7 fl (82.0-101.0); MEAN PLATELET VOLUME 10.2 fl (7.4-10.4); MONOCYTE # 0.5 10^3/ul (0.3-0.9); MONOCYTES % 12.8 % (0.0-11.0); NEUTROPHIL # 0.9 10^3/ul (1.6-7.5); NEUTROPHILS % 23.3 % (39.0-77.0); NUCLEATED RED BLOOD CELLS # 0.1 10^3/ul (0.0-0.0); PLATELET COUNT 91 10^3/UL (140-415); POSITIVE DIFF @See below; RED BLOOD COUNT 2.66 10^6/ul (4.70-6.10)
[2018-02-01] MEDS: SOD CHLORIDE 0.9% IVPB ×3 (06:50→21:13)
[2018-02-01] MEDS: ACYCLOVIR IVPB ×3 (06:50→21:13)
[2018-02-01] MEDS: clonAZEPAM 0.5 MG TAB PO ×3 (06:51→21:14)
[2018-02-01] MEDS: PANTOPRAZOLE (EC) 40 MG TAB PO (06:51)
[2018-02-01 07:08] LABS: INR 1.43; PROTIME 17.7 Sec (11.9-14.9); PT RATIO 1.4
[2018-02-01 07:13] LABS: ALBUMIN 2.6 g/dl (3.3-4.9); ANION GAP 17 (8-16); BLOOD UREA NITROGEN 10 mg/dl (7-20); CALCIUM 6.9 mg/dl (8.4-10.2); CARBON DIOXIDE 19 mmol/L (21-31); CHLORIDE 105 mmol/L (97-110); CREATININE 0.95 mg/dl (0.61-1.24); GLUCOSE 88 mg/dl (70-220); POTASSIUM 4.1 mmol/L (3.5-5.1); SODIUM 137 mmol/L (135-144)
[2018-02-01 07:46] LABS: PARTIAL THROMBOPLASTIN TIME 45.2 Sec (25.0-35.0)
[2018-02-01] MEDS: DOLUTEGRAVIR SODIUM 50 MG TABLET PO (09:29)
[2018-02-01] MEDS: MEROPENEM 1 GM/50ML(PMX) 50 ML IVPB ×2 (09:29→21:14)
[2018-02-01] MEDS: EMTRICITABINE/TENOFOVIR TAB PO (09:29)
[2018-02-01] MEDS: CITALOPRAM 20 MG TAB PO (09:29)
[2018-02-01] MEDS: SENNA/DOCUSATE NA (8.6MG/50MG) TAB PO (09:29)
[2018-02-01] MEDS: QUETIAPINE 25 MG TAB PO ×2 (09:32→21:14)
[2018-02-01] MEDS: FLUCONAZOLE 400 MG/NS (PMX) 200 ML IVPB (10:35)
[2018-02-01] MEDS: PHYTONADIONE 10 MG/ML INJ SC (12:47)
[2018-02-02] MEDS: VANCOMYCIN 1 GM 250 ML IVPB ×2 (03:00→17:58)
[2018-02-02] MEDS: ACYCLOVIR IVPB ×3 (05:05→21:24)
[2018-02-02] MEDS: SOD CHLORIDE 0.9% IVPB ×3 (05:05→21:24)
[2018-02-02 06:33] LABS: ADD MAN DIFF? NO
[2018-02-02] MEDS: PANTOPRAZOLE (EC) 40 MG TAB PO (06:39)
[2018-02-02] MEDS: clonAZEPAM 0.5 MG TAB PO ×3 (06:39→21:24)
[2018-02-02 06:47] LABS: ABNORMAL IP MESSAGE 1; BASOPHILS % 0.9 % (0.0-2.0); EOSINOPHILS # 0.1 10^3/ul (0.0-0.5); EOSINOPHILS % 1.4 % (0.0-7.0); HEMATOCRIT 23.4 % (42.0-52.0); HEMOGLOBIN 7.9 g/dl (14.0-18.0); LYMPHOCYTES # 2.1 10^3/ul (0.8-2.9); LYMPHOCYTES % 48.5 % (15.0-51.0); MEAN CORPUSCULAR HEMOGLOBIN 28.3 pg (29.0-33.0); MEAN CORPUSCULAR HGB CONC 33.8 g/dl (32.0-37.0); MEAN CORPUSCULAR VOLUME 83.9 fl (82.0-101.0); MONOCYTE # 0.6 10^3/ul (0.3-0.9); NEUTROPHIL # 0.9 10^3/ul (1.6-7.5); NEUTROPHILS % 19.7 % (39.0-77.0); NUCLEATED RED BLOOD CELLS # 0.1 10^3/ul (0.0-0.0); NUCLEATED RED BLOOD CELLS% 2.3 /100WBC (0.0-0.0); PLATELET COUNT 104 10^3/UL (140-415); POSITIVE DIFF @See below; RED BLOOD COUNT 2.79 10^6/ul (4.70-6.10); RED CELL DISTRIBUTION WIDTH 13.8 % (11.5-14.5)
[2018-02-02 06:47] LABS: WHITE BLOOD COUNT 4.4 10^3/ul (4.8-10.8)
[2018-02-02 07:05] LABS: INR 1.19; PROTIME 15.3 Sec (11.9-14.9); PT RATIO 1.2
[2018-02-02 07:14] LABS: ALBUMIN 2.7 g/dl (3.3-4.9); ANION GAP 18 (8-16); BLOOD UREA NITROGEN 10 mg/dl (7-20); CALCIUM 7.1 mg/dl (8.4-10.2); CARBON DIOXIDE 17 mmol/L (21-31); CHLORIDE 107 mmol/L (97-110); CREATININE 0.89 mg/dl (0.61-1.24); GLUCOSE 88 mg/dl (70-220); MAGNESIUM 1.9 mg/dl (1.7-2.5); PHOSPHORUS 1.7 mg/dl (2.5-4.9); POTASSIUM 4.2 mmol/L (3.5-5.1); SODIUM 138 mmol/L (135-144)
[2018-02-02] MEDS: MEROPENEM 1 GM/50ML(PMX) 50 ML IVPB ×2 (08:52→20:44)
[2018-02-02] MEDS: CITALOPRAM 20 MG TAB PO (08:53)
[2018-02-02] MEDS: DOLUTEGRAVIR SODIUM 50 MG TABLET PO (08:53)
[2018-02-02] MEDS: QUETIAPINE 25 MG TAB PO ×2 (08:53→20:44)
[2018-02-02] MEDS: SENNA/DOCUSATE NA (8.6MG/50MG) TAB PO (08:53)
[2018-02-02] MEDS: EMTRICITABINE/TENOFOVIR TAB PO (08:53)
[2018-02-02 09:18] LABS: ANISOCYTOSIS 2+ (0-0); BAND NEUTROPHILS #M 0.5 10^3/ul (0.0-0.6); BAND NEUTROPHILS % (M) 13 % (0-4); BASOPHILS % (M) 2 % (0-2); ERYTHROBLAST% (NRBC) (M) 2 % (0-0); LYMPHOCYTES #M 1.7 10^3/ul (0.8-2.9); LYMPHOCYTES % (M) 40 % (15-51); MICROCYTOSIS 2+ (0-0); MONOCYTE #M 0.4 10^3/ul (0.3-0.9); MONOCYTES % (M) 10 % (0-11); MYELOCYTES #M 0.2 10^3/ul (0.0-0.0); MYELOCYTES % (M) 5 % (0-0); PLATELET ESTIMATE DECREASED; PROMYELOCYTES % (M) 2 % (0-0); REACTIVE LYMPHOCYTES% (M) 2 % (0-0); SEG NEUT #M 1.2 10^3/ul (1.6-7.5); SEGMENTED NEUTROPHILS (M) % 26 % (39-77); SMUDGE%M 59 % (0-0)
[2018-02-02] MEDS: NEUTRA-PHOS 250 MG PACKET PO (10:31)
[2018-02-02] MEDS: POTASSIUM PHOSPHATE IV ×2 (10:40→12:42)
[2018-02-02] MEDS: POTASSIUM CHLORIDE IV ×2 (10:40→12:42)
[2018-02-02] MEDS: SOD CHLORIDE 0.9% IV ×2 (10:40→12:42)
[2018-02-02] MEDS: FLUCONAZOLE 400 MG/NS (PMX) 200 ML IVPB (10:47)
[2018-02-02 14:17] LABS: PHOSPHORUS 2.4 mg/dl (2.5-4.9)
[2018-02-02] MEDS: LIDOCAINE 1% (MDV) 10 ML INJ (14:44)
[2018-02-02] MEDS: HYDROmorphONE 1 MG/ML SYG IV (16:30)
[2018-02-02 16:34] LABS: CSF RBC 32000 /uL (0-0)
[2018-02-02 16:38] LABS: CSF MN% 84.2 %; CSF PMN% 15.8 %; CSF RBC 60000 /uL (0-0)
[2018-02-02 17:14] LABS: CSF COLOR RED
[2018-02-02 17:15] LABS: CSF#TUBE COUNT TUBE#1; CSF#TUBES REC'D 4
[2018-02-02 17:19] LABS: CSF WBC 20 /cmm (0-10)
[2018-02-02 17:20] LABS: CSF CLARITY BLOODY; CSF COLOR RED; CSF#TUBE COUNT TUBE#4; CSF#TUBES REC'D 4
[2018-02-02 17:21] LABS: CSF CLARITY BLOODY
[2018-02-02 17:22] LABS: CSF WBC 19 /cmm (0-10)
[2018-02-02 17:27] LABS: GLUCOSE,CSF 41 mg/dl (50-80)
[2018-02-02 17:38] LABS: TOTAL PROTEIN,CSF 541 mg/dl (12-60)
[2018-02-03] MEDS: HYDROCODONE/APAP (5/325) TAB PO (01:42)
[2018-02-03] MEDS: VANCOMYCIN 1 GM 250 ML IVPB ×2 (03:21→15:00)
[2018-02-03] MEDS: POTASSIUM PHOSPHATE IV ×3 (03:25→14:02)
[2018-02-03] MEDS: POTASSIUM CHLORIDE IV ×3 (03:25→14:02)
[2018-02-03] MEDS: SOD CHLORIDE 0.9% IV ×3 (03:25→14:02)
[2018-02-03] MEDS: clonAZEPAM 0.5 MG TAB PO ×3 (05:22→21:01)
[2018-02-03] MEDS: PANTOPRAZOLE (EC) 40 MG TAB PO (05:22)
[2018-02-03] MEDS: ACYCLOVIR IVPB ×3 (05:23→21:43)
[2018-02-03] MEDS: SOD CHLORIDE 0.9% IVPB ×3 (05:23→21:43)
[2018-02-03 07:13] LABS: ADD MAN DIFF? NO
[2018-02-03 07:18] LABS: ABNORMAL IP MESSAGE 1; BASOPHIL # 0.1 10^3/ul (0.0-0.1); BASOPHILS % 1.1 % (0.0-2.0); EOSINOPHILS # 0.1 10^3/ul (0.0-0.5); EOSINOPHILS % 1.3 % (0.0-7.0); LYMPHOCYTES # 2.2 10^3/ul (0.8-2.9); LYMPHOCYTES % 47.3 % (15.0-51.0); MEAN CORPUSCULAR HGB CONC 33.3 g/dl (32.0-37.0); MEAN CORPUSCULAR VOLUME 83.9 fl (82.0-101.0); MEAN PLATELET VOLUME 10.1 fl (7.4-10.4); MONOCYTE # 0.5 10^3/ul (0.3-0.9); MONOCYTES % 10.1 % (0.0-11.0); NEUTROPHIL # 1.1 10^3/ul (1.6-7.5); NEUTROPHILS % 23.4 % (39.0-77.0); NUCLEATED RED BLOOD CELLS # 0.1 10^3/ul (0.0-0.0); NUCLEATED RED BLOOD CELLS% 2.6 /100WBC (0.0-0.0); PLATELET COUNT 99 10^3/UL (140-415); POSITIVE DIFF @See below; RED BLOOD COUNT 2.86 10^6/ul (4.70-6.10); RED CELL DISTRIBUTION WIDTH 14.2 % (11.5-14.5)
[2018-02-03 07:18] LABS: WHITE BLOOD COUNT 4.7 10^3/ul (4.8-10.8)
[2018-02-03 07:41] LABS: ALBUMIN 2.6 g/dl (3.3-4.9); ANION GAP 18 (8-16); BLOOD UREA NITROGEN 11 mg/dl (7-20); CALCIUM 7.1 mg/dl (8.4-10.2); CARBON DIOXIDE 17 mmol/L (21-31); CHLORIDE 110 mmol/L (97-110); CREATININE 0.88 mg/dl (0.61-1.24); GLUCOSE 84 mg/dl (70-220); MAGNESIUM 1.8 mg/dl (1.7-2.5); PHOSPHORUS 2.4 mg/dl (2.5-4.9); POTASSIUM 4.3 mmol/L (3.5-5.1); SODIUM 141 mmol/L (135-144)
[2018-02-03] MEDS: QUETIAPINE 25 MG TAB PO ×2 (09:07→21:01)
[2018-02-03] MEDS: MEROPENEM 1 GM/50ML(PMX) 50 ML IVPB ×2 (09:07→20:59)
[2018-02-03] MEDS: EMTRICITABINE/TENOFOVIR TAB PO (09:08)
[2018-02-03] MEDS: CITALOPRAM 20 MG TAB PO (09:08)
[2018-02-03] MEDS: DOLUTEGRAVIR SODIUM 50 MG TABLET PO (09:08)
[2018-02-03] MEDS: SENNA/DOCUSATE NA (8.6MG/50MG) TAB PO (09:09)
[2018-02-03 09:35] LABS: ANISOCYTOSIS 2+ (0-0); BAND NEUTROPHILS #M 1.2 10^3/ul (0.0-0.6); BAND NEUTROPHILS % (M) 26 % (0-4); BASOPHILS % (M) 1 % (0-2); EOSINOPHILS % (M) 3 % (0-7); ERYTHROBLAST% (NRBC) (M) 6 % (0-0); LYMPHOCYTES #M 1.1 10^3/ul (0.8-2.9); LYMPHOCYTES % (M) 24 % (15-51); METAMYELOCYTES #M 0.3 10^3/ul (0.0-0.0); METAMYELOCYTES %M 8 % (0-0); MICROCYTOSIS 2+ (0-0); MONOCYTES % (M) 1 % (0-11); MYELOCYTES #M 0.4 10^3/ul (0.0-0.0); MYELOCYTES % (M) 10 % (0-0); PLATELET ESTIMATE DECREASED; POLYCHROMASIA 1+ (0-0); REACTIVE LYMPHOCYTES% (M) 1 % (0-0); SEG NEUT #M 1.3 10^3/ul (1.6-7.5); SEGMENTED NEUTROPHILS (M) % 26 % (39-77); SMUDGE%M 46 % (0-0)
[2018-02-03] MEDS: FLUCONAZOLE 400 MG/NS (PMX) 200 ML IVPB (10:46)
[2018-02-03] MEDS: HYDROmorphONE 1 MG/ML SYG IV (15:28)
[2018-02-04] MEDS: SOD CHLORIDE 0.9% IV ×3 (03:11→23:25)
[2018-02-04] MEDS: POTASSIUM PHOSPHATE IV ×3 (03:11→23:25)
[2018-02-04] MEDS: POTASSIUM CHLORIDE IV ×3 (03:11→23:25)
[2018-02-04] MEDS: VANCOMYCIN 1 GM 250 ML IVPB ×2 (03:14→16:18)
[2018-02-04] MEDS: clonAZEPAM 0.5 MG TAB PO ×3 (05:00→21:21)
[2018-02-04] MEDS: ACYCLOVIR IVPB ×3 (05:00→21:55)
[2018-02-04] MEDS: PANTOPRAZOLE (EC) 40 MG TAB PO (05:00)
[2018-02-04] MEDS: SOD CHLORIDE 0.9% IVPB ×3 (05:00→21:55)
[2018-02-04 07:41] LABS: ADD MAN DIFF? NO
[2018-02-04 07:51] LABS: WHITE BLOOD COUNT 4.8 10^3/ul (4.8-10.8)
[2018-02-04 07:51] LABS: ABNORMAL IP MESSAGE 1; BASOPHIL # 0.1 10^3/ul (0.0-0.1); EOSINOPHILS # 0.1 10^3/ul (0.0-0.5); EOSINOPHILS % 1.3 % (0.0-7.0); HEMATOCRIT 22.6 % (42.0-52.0); HEMOGLOBIN 7.8 g/dl (14.0-18.0); LYMPHOCYTES # 2.3 10^3/ul (0.8-2.9); LYMPHOCYTES % 48.2 % (15.0-51.0); MEAN CORPUSCULAR HEMOGLOBIN 28.8 pg (29.0-33.0); MEAN CORPUSCULAR HGB CONC 34.5 g/dl (32.0-37.0); MEAN CORPUSCULAR VOLUME 83.4 fl (82.0-101.0); MONOCYTE # 0.4 10^3/ul (0.3-0.9); MONOCYTES % 8.6 % (0.0-11.0); NEUTROPHIL # 1.4 10^3/ul (1.6-7.5); NUCLEATED RED BLOOD CELLS # 0.1 10^3/ul (0.0-0.0); NUCLEATED RED BLOOD CELLS% 1.5 /100WBC (0.0-0.0); PLATELET COUNT 85 10^3/UL (140-415); POSITIVE DIFF @See below; RED BLOOD COUNT 2.71 10^6/ul (4.70-6.10); RED CELL DISTRIBUTION WIDTH 14.3 % (11.5-14.5)
[2018-02-04 08:08] LABS: ALBUMIN 2.7 g/dl (3.3-4.9); ANION GAP 17 (8-16); BLOOD UREA NITROGEN 11 mg/dl (7-20); CALCIUM 7.2 mg/dl (8.4-10.2); CARBON DIOXIDE 19 mmol/L (21-31); CHLORIDE 107 mmol/L (97-110); CREATININE 0.92 mg/dl (0.61-1.24); GLUCOSE 76 mg/dl (70-220); MAGNESIUM 1.7 mg/dl (1.7-2.5); PHOSPHORUS 2.4 mg/dl (2.5-4.9); POTASSIUM 4.2 mmol/L (3.5-5.1); SODIUM 139 mmol/L (135-144)
[2018-02-04] MEDS: QUETIAPINE 25 MG TAB PO ×2 (08:48→21:21)
[2018-02-04] MEDS: EMTRICITABINE/TENOFOVIR TAB PO (08:48)
[2018-02-04] MEDS: DOLUTEGRAVIR SODIUM 50 MG TABLET PO (08:48)
[2018-02-04] MEDS: CITALOPRAM 20 MG TAB PO (08:48)
[2018-02-04] MEDS: SENNA/DOCUSATE NA (8.6MG/50MG) TAB PO (08:49)
[2018-02-04] MEDS: MEROPENEM 1 GM/50ML(PMX) 50 ML IVPB ×2 (08:50→21:21)
[2018-02-04] MEDS: LORATADINE/PSEUDOEPHED (SR) TAB PO ×2 (10:50→21:21)
[2018-02-04] MEDS: FLUTICASONE 0.05% 16 GM NAS SPRAY NASAL ×2 (10:53→21:21)
[2018-02-04] MEDS: FLUCONAZOLE 400 MG/NS (PMX) 200 ML IVPB (10:54)
[2018-02-04 11:03] LABS: ANISOCYTOSIS 1+ (0-0); BAND NEUTROPHILS #M 0.7 10^3/ul (0.0-0.6); BAND NEUTROPHILS % (M) 15 % (0-4); EOSINOPHILS % (M) 1 % (0-7); ERYTHROBLAST% (NRBC) (M) 1 % (0-0); LYMPHOCYTES #M 1.6 10^3/ul (0.8-2.9); LYMPHOCYTES % (M) 35 % (15-51); METAMYELOCYTES #M 0.1 10^3/ul (0.0-0.0); METAMYELOCYTES %M 3 % (0-0); MONOCYTE #M 0.2 10^3/ul (0.3-0.9); MONOCYTES % (M) 5 % (0-11); MYELOCYTES #M 0.5 10^3/ul (0.0-0.0); MYELOCYTES % (M) 11 % (0-0); PLATELET ESTIMATE DECREASED; POLYCHROMASIA 1+ (0-0); PROMYELOCYTES #M 0.1 10^3/ul (0-0); PROMYELOCYTES % (M) 3 % (0-0); REACTIVE LYMPHOCYTES% (M) 1 % (0-0); SEG NEUT #M 1.2 10^3/ul (1.6-7.5); SEGMENTED NEUTROPHILS (M) % 25 % (39-77); SMUDGE%M 24 % (0-0)
[2018-02-04 15:51] LABS: VANCOMYCIN,TROUGH 10.9 ug/ml (10.0-20.0)
[2018-02-05] MEDS: VANCOMYCIN 1.25 GM in SOD CHLORIDE 0.9% 250 ML IVPB ×2 (03:16→17:04)
[2018-02-05] MEDS: clonAZEPAM 0.5 MG TAB PO ×3 (05:03→21:14)
[2018-02-05] MEDS: PANTOPRAZOLE (EC) 40 MG TAB PO (05:03)
[2018-02-05] MEDS: ACYCLOVIR IVPB ×3 (06:30→21:58)
[2018-02-05] MEDS: SOD CHLORIDE 0.9% IVPB ×3 (06:30→21:58)
[2018-02-05 08:04] LABS: ADD MAN DIFF? NO
[2018-02-05 08:08] LABS: ABNORMAL IP MESSAGE 1; BASOPHILS % 0.9 % (0.0-2.0); EOSINOPHILS % 0.7 % (0.0-7.0); HEMATOCRIT 23.5 % (42.0-52.0); LYMPHOCYTES # 2.1 10^3/ul (0.8-2.9); LYMPHOCYTES % 47.7 % (15.0-51.0); MEAN CORPUSCULAR HEMOGLOBIN 28.2 pg (29.0-33.0); MEAN CORPUSCULAR VOLUME 82.7 fl (82.0-101.0); MEAN PLATELET VOLUME 9.9 fl (7.4-10.4); MONOCYTE # 0.6 10^3/ul (0.3-0.9); MONOCYTES % 12.2 % (0.0-11.0); NEUTROPHIL # 1.4 10^3/ul (1.6-7.5); NEUTROPHILS % 31.2 % (39.0-77.0); NUCLEATED RED BLOOD CELLS% 0.9 /100WBC (0.0-0.0); PLATELET COUNT 69 10^3/UL (140-415); POSITIVE DIFF @See below; RED BLOOD COUNT 2.84 10^6/ul (4.70-6.10); RED CELL DISTRIBUTION WIDTH 14.1 % (11.5-14.5)
[2018-02-05 08:08] LABS: WHITE BLOOD COUNT 4.5 10^3/ul (4.8-10.8)
[2018-02-05 08:28] LABS: ALBUMIN 2.6 g/dl (3.3-4.9); ANION GAP 16 (8-16); BLOOD UREA NITROGEN 11 mg/dl (7-20); CALCIUM 7.6 mg/dl (8.4-10.2); CARBON DIOXIDE 19 mmol/L (21-31); CHLORIDE 109 mmol/L (97-110); CREATININE 0.86 mg/dl (0.61-1.24); GLUCOSE 79 mg/dl (70-220); MAGNESIUM 1.7 mg/dl (1.7-2.5); PHOSPHORUS 2.5 mg/dl (2.5-4.9); POTASSIUM 4.4 mmol/L (3.5-5.1); SODIUM 140 mmol/L (135-144)
[2018-02-05] MEDS: MEROPENEM 1 GM/50ML(PMX) 50 ML IVPB ×2 (09:04→21:12)
[2018-02-05] MEDS: DOLUTEGRAVIR SODIUM 50 MG TABLET PO (09:04)
[2018-02-05] MEDS: EMTRICITABINE/TENOFOVIR TAB PO (09:04)
[2018-02-05] MEDS: CITALOPRAM 20 MG TAB PO (09:04)
[2018-02-05] MEDS: LORATADINE/PSEUDOEPHED (SR) TAB PO ×2 (09:04→21:12)
[2018-02-05] MEDS: SENNA/DOCUSATE NA (8.6MG/50MG) TAB PO (09:04)
[2018-02-05] MEDS: FLUTICASONE 0.05% 16 GM NAS SPRAY NASAL ×2 (09:05→21:13)
[2018-02-05] MEDS: QUETIAPINE 25 MG TAB PO ×2 (09:12→21:11)
[2018-02-05 09:21] LABS: ANISOCYTOSIS 2+ (0-0); BAND NEUTROPHILS #M 0.7 10^3/ul (0.0-0.6); BAND NEUTROPHILS % (M) 17 % (0-4); BASOPHILS % (M) 1 % (0-2); ERYTHROBLAST% (NRBC) (M) 2 % (0-0); GIANT THROMBO% (M) 1 % (0-0); LYMPHOCYTES #M 1.7 10^3/ul (0.8-2.9); LYMPHOCYTES % (M) 39 % (15-51); METAMYELOCYTES %M 2 % (0-0); MICROCYTOSIS 2+ (0-0); MONOCYTE #M 0.2 10^3/ul (0.3-0.9); MONOCYTES % (M) 5 % (0-11); MYELOCYTES #M 0.3 10^3/ul (0.0-0.0); MYELOCYTES % (M) 8 % (0-0); PLATELET ESTIMATE SIG DECREASED; PROMYELOCYTES #M 0.2 10^3/ul (0-0); PROMYELOCYTES % (M) 6 % (0-0); SEGMENTED NEUTROPHILS (M) % 22 % (39-77); SMUDGE%M 25 % (0-0)
[2018-02-05] MEDS: FLUCONAZOLE 400 MG/NS (PMX) 200 ML IVPB (11:57)
[2018-02-05] MEDS: POTASSIUM CHLORIDE IV (15:35)
[2018-02-05] MEDS: POTASSIUM PHOSPHATE IV (15:35)
[2018-02-05] MEDS: SOD CHLORIDE 0.9% IV (15:35)
[2018-02-06] MEDS: SOD CHLORIDE 0.9% IV ×3 (03:00→15:53)
[2018-02-06] MEDS: POTASSIUM CHLORIDE IV ×3 (03:00→15:53)
[2018-02-06] MEDS: POTASSIUM PHOSPHATE IV ×3 (03:00→15:53)
[2018-02-06] MEDS: VANCOMYCIN 1.25 GM in SOD CHLORIDE 0.9% 250 ML IVPB ×2 (04:39→15:59)
[2018-02-06] MEDS: PANTOPRAZOLE (EC) 40 MG TAB PO (05:54)
[2018-02-06] MEDS: clonAZEPAM 0.5 MG TAB PO ×3 (05:56→21:45)
[2018-02-06] MEDS: SOD CHLORIDE 0.9% IVPB ×3 (07:41→21:49)
[2018-02-06] MEDS: ACYCLOVIR IVPB ×3 (07:41→21:49)
[2018-02-06] MEDS: SENNA/DOCUSATE NA (8.6MG/50MG) TAB PO (09:12)
[2018-02-06] MEDS: DOLUTEGRAVIR SODIUM 50 MG TABLET PO (09:13)
[2018-02-06] MEDS: CITALOPRAM 20 MG TAB PO (09:13)
[2018-02-06] MEDS: EMTRICITABINE/TENOFOVIR TAB PO (09:13)
[2018-02-06] MEDS: LORATADINE/PSEUDOEPHED (SR) TAB PO ×2 (09:13→21:45)
[2018-02-06] MEDS: HYDROCODONE/APAP (5/325) TAB PO (09:14)
[2018-02-06] MEDS: QUETIAPINE 25 MG TAB PO ×2 (09:14→21:45)
[2018-02-06] MEDS: FLUTICASONE 0.05% 16 GM NAS SPRAY NASAL ×2 (09:14→21:51)
[2018-02-06] MEDS: MEROPENEM 1 GM/50ML(PMX) 50 ML IVPB ×2 (09:25→21:51)
[2018-02-06 10:01] LABS: WHITE BLOOD COUNT 4.3 10^3/ul (4.8-10.8)
[2018-02-06 10:01] LABS: ABNORMAL IP MESSAGE 1; HEMATOCRIT 24.6 % (42.0-52.0); HEMOGLOBIN 8.3 g/dl (14.0-18.0); MEAN CORPUSCULAR HEMOGLOBIN 28.4 pg (29.0-33.0); MEAN CORPUSCULAR HGB CONC 33.7 g/dl (32.0-37.0); MEAN CORPUSCULAR VOLUME 84.2 fl (82.0-101.0); MEAN PLATELET VOLUME 9.4 fl (7.4-10.4); NUCLEATED RED BLOOD CELLS% 0.5 /100WBC (0.0-0.0); PLATELET COUNT 53 10^3/UL (140-415); POSITIVE DIFF @See below; RED BLOOD COUNT 2.92 10^6/ul (4.70-6.10); RED CELL DISTRIBUTION WIDTH 14.4 % (11.5-14.5)
[2018-02-06 10:02] LABS: ADD MAN DIFF? YES
[2018-02-06 10:24] LABS: ALBUMIN 2.6 g/dl (3.3-4.9); ANION GAP 19 (8-16); BLOOD UREA NITROGEN 14 mg/dl (7-20); CALCIUM 7.9 mg/dl (8.4-10.2); CARBON DIOXIDE 19 mmol/L (21-31); CHLORIDE 104 mmol/L (97-110); GLUCOSE 88 mg/dl (70-220); MAGNESIUM 1.7 mg/dl (1.7-2.5); PHOSPHORUS 3.3 mg/dl (2.5-4.9); POTASSIUM 4.4 mmol/L (3.5-5.1); SODIUM 138 mmol/L (135-144)
[2018-02-06 10:45] LABS: ANISOCYTOSIS 2+ (0-0); BAND NEUTROPHILS #M 0.5 10^3/ul (0.0-0.6); BAND NEUTROPHILS % (M) 13 % (0-4); EOSINOPHILS % (M) 2 % (0-7); GIANT THROMBO% (M) 1 % (0-0); LYMPHOCYTES #M 1.8 10^3/ul (0.8-2.9); LYMPHOCYTES % (M) 43 % (15-51); METAMYELOCYTES #M 0.1 10^3/ul (0.0-0.0); METAMYELOCYTES %M 3 % (0-0); MICROCYTOSIS 2+ (0-0); MONOCYTE #M 0.4 10^3/ul (0.3-0.9); MONOCYTES % (M) 11 % (0-11); MYELOCYTES #M 0.3 10^3/ul (0.0-0.0); MYELOCYTES % (M) 8 % (0-0); PLATELET ESTIMATE DECREASED; PROMYELOCYTES #M 0.2 10^3/ul (0-0); PROMYELOCYTES % (M) 5 % (0-0); REACTIVE LYMPHOCYTES% (M) 1 % (0-0); SEG NEUT #M 0.6 10^3/ul (1.6-7.5); SEGMENTED NEUTROPHILS (M) % 14 % (39-77); SMUDGE%M 47 % (0-0)
[2018-02-06] MEDS: FLUCONAZOLE 400 MG/NS (PMX) 200 ML IVPB (11:09)
[2018-02-06] MEDS ORDERED: NACL 0.9% 3 ML SYG IV (21:00)
[2018-02-07] MEDS: POTASSIUM CHLORIDE IV ×3 (01:35→21:45)
[2018-02-07] MEDS: SOD CHLORIDE 0.9% IV ×3 (01:35→21:45)
[2018-02-07] MEDS: POTASSIUM PHOSPHATE IV ×3 (01:35→21:45)
[2018-02-07 03:59] LABS: VANCOMYCIN,TROUGH 19.1 ug/ml (10.0-20.0)
[2018-02-07] MEDS: PANTOPRAZOLE (EC) 40 MG TAB PO (05:26)
[2018-02-07] MEDS: clonAZEPAM 0.5 MG TAB PO ×3 (05:26→23:26)
[2018-02-07] MEDS: SOD CHLORIDE 0.9% IVPB ×3 (05:26→23:26)
[2018-02-07] MEDS: ACYCLOVIR IVPB ×3 (05:26→23:26)
[2018-02-07] MEDS: VANCOMYCIN 1 GM 250 ML IVPB ×2 (06:49→18:21)
[2018-02-07] MEDS: SENNA/DOCUSATE NA (8.6MG/50MG) TAB PO (08:24)
[2018-02-07] MEDS: LORATADINE/PSEUDOEPHED (SR) TAB PO ×2 (08:24→23:26)
[2018-02-07] MEDS: QUETIAPINE 25 MG TAB PO ×2 (08:24→20:49)
[2018-02-07] MEDS: DOLUTEGRAVIR SODIUM 50 MG TABLET PO (08:24)
[2018-02-07] MEDS: EMTRICITABINE/TENOFOVIR TAB PO (08:24)
[2018-02-07] MEDS: CITALOPRAM 20 MG TAB PO (08:24)
[2018-02-07] MEDS: FLUTICASONE 0.05% 16 GM NAS SPRAY NASAL ×2 (08:25→20:51)
[2018-02-07] MEDS: MEROPENEM 1 GM/50ML(PMX) 50 ML IVPB ×2 (09:00→20:47)
[2018-02-07 10:02] LABS: ALBUMIN 2.6 g/dl (3.3-4.9); ANION GAP 22 (8-16); BLOOD UREA NITROGEN 14 mg/dl (7-20); CALCIUM 7.8 mg/dl (8.4-10.2); GLUCOSE 76 mg/dl (70-220); PHOSPHORUS 4.2 mg/dl (2.5-4.9)
[2018-02-07 10:03] LABS: SODIUM 139 mmol/L (135-144)
[2018-02-07 10:04] LABS: CARBON DIOXIDE 17 mmol/L (21-31); CHLORIDE 105 mmol/L (97-110); CREATININE 0.83 mg/dl (0.61-1.24); MAGNESIUM 1.7 mg/dl (1.7-2.5); POTASSIUM 5.2 mmol/L (3.5-5.1)
[2018-02-07] MEDS: HYDROCODONE/APAP (5/325) TAB PO (10:26)
[2018-02-07] MEDS: FLUCONAZOLE 400 MG/NS (PMX) 200 ML IVPB (11:00)
[2018-02-07 12:54] LABS: WHITE BLOOD COUNT 4.3 10^3/ul (4.8-10.8)
[2018-02-07 12:54] LABS: ABNORMAL IP MESSAGE 1; HEMATOCRIT 26.6 % (42.0-52.0); HEMOGLOBIN 8.8 g/dl (14.0-18.0); MEAN CORPUSCULAR HEMOGLOBIN 28.5 pg (29.0-33.0); MEAN CORPUSCULAR HGB CONC 33.1 g/dl (32.0-37.0); MEAN CORPUSCULAR VOLUME 86.1 fl (82.0-101.0); MEAN PLATELET VOLUME 10.3 fl (7.4-10.4); NUCLEATED RED BLOOD CELLS% 0.7 /100WBC (0.0-0.0); PLATELET COUNT 58 10^3/UL (140-415); POSITIVE DIFF @See below; RED BLOOD COUNT 3.09 10^6/ul (4.70-6.10); RED CELL DISTRIBUTION WIDTH 14.7 % (11.5-14.5)
[2018-02-07 12:56] LABS: ADD MAN DIFF? YES
[2018-02-07 13:16] LABS: ANISOCYTOSIS 2+ (0-0); BAND NEUTROPHILS #M 0.7 10^3/ul (0.0-0.6); BAND NEUTROPHILS % (M) 17 % (0-4); BASOPHILS % (M) 2 % (0-2); BURR CELLS 1+ (0-0); EOSINOPHILS % (M) 2 % (0-7); ERYTHROBLAST% (NRBC) (M) 3 % (0-0); LYMPHOCYTES #M 1.2 10^3/ul (0.8-2.9); LYMPHOCYTES % (M) 28 % (15-51); METAMYELOCYTES #M 0.1 10^3/ul (0.0-0.0); METAMYELOCYTES %M 4 % (0-0); MICROCYTOSIS 2+ (0-0); MONOCYTE #M 0.4 10^3/ul (0.3-0.9); MONOCYTES % (M) 10 % (0-11); MYELOCYTES #M 0.2 10^3/ul (0.0-0.0); MYELOCYTES % (M) 6 % (0-0); PLATELET ESTIMATE DECREASED; POIKILOCYTOSIS 1+ (0-0); PROMYELOCYTES #M 0.1 10^3/ul (0-0); PROMYELOCYTES % (M) 4 % (0-0); SEG NEUT #M 1.2 10^3/ul (1.6-7.5); SEGMENTED NEUTROPHILS (M) % 27 % (39-77); SMUDGE%M 90 % (0-0)
[2018-02-08] MEDS: POTASSIUM PHOSPHATE IV ×3 (01:29→12:00)
[2018-02-08] MEDS: SOD CHLORIDE 0.9% IV ×3 (01:29→12:00)
[2018-02-08] MEDS: POTASSIUM CHLORIDE IV ×3 (01:29→12:00)
[2018-02-08] MEDS: SOD CHLORIDE 0.9% IVPB (05:07)
[2018-02-08] MEDS: ACYCLOVIR IVPB (05:07)
[2018-02-08] MEDS: clonAZEPAM 0.5 MG TAB PO ×3 (05:07→20:47)
[2018-02-08] MEDS: PANTOPRAZOLE (EC) 40 MG TAB PO (05:07)
[2018-02-08] MEDS: VANCOMYCIN 1 GM 250 ML IVPB (06:41)
[2018-02-08] MEDS: FLUTICASONE 0.05% 16 GM NAS SPRAY NASAL ×2 (08:43→20:48)
[2018-02-08] MEDS: CITALOPRAM 20 MG TAB PO (08:43)
[2018-02-08] MEDS: SENNA/DOCUSATE NA (8.6MG/50MG) TAB PO (08:43)
[2018-02-08] MEDS: LORATADINE/PSEUDOEPHED (SR) TAB PO ×2 (08:43→20:47)
[2018-02-08] MEDS: EMTRICITABINE/TENOFOVIR TAB PO (08:43)
[2018-02-08] MEDS: DOLUTEGRAVIR SODIUM 50 MG TABLET PO (08:43)
[2018-02-08] MEDS: MEROPENEM 1 GM/50ML(PMX) 50 ML IVPB (08:43)
[2018-02-08] MEDS: QUETIAPINE 25 MG TAB PO ×2 (08:43→20:47)
[2018-02-08 11:27] LABS: POTASSIUM 4.6 mmol/L (3.5-5.1)
[2018-02-08] MEDS: AMPICILLIN 2 GM/NS (PMX) 100 ML IVPB ×2 (12:58→17:55)
[2018-02-08] MEDS: HYDROCODONE/APAP (5/325) TAB PO (17:12)
[2018-02-09] MEDS: AMPICILLIN 2 GM/NS (PMX) 100 ML IVPB ×5 (00:32→23:56)
[2018-02-09] MEDS: clonAZEPAM 0.5 MG TAB PO ×3 (05:28→22:40)
[2018-02-09] MEDS: PANTOPRAZOLE (EC) 40 MG TAB PO (05:28)
[2018-02-09] MEDS: SOD CHLORIDE 0.9% IV ×2 (05:29→14:45)
[2018-02-09] MEDS: POTASSIUM PHOSPHATE IV ×2 (05:29→14:45)
[2018-02-09] MEDS: POTASSIUM CHLORIDE IV ×2 (05:29→14:45)
[2018-02-09 07:14] LABS: WHITE BLOOD COUNT 4.7 10^3/ul (4.8-10.8)
[2018-02-09 07:14] LABS: ABNORMAL IP MESSAGE 1; HEMATOCRIT 24.6 % (42.0-52.0); HEMOGLOBIN 8.4 g/dl (14.0-18.0); MEAN CORPUSCULAR HEMOGLOBIN 28.1 pg (29.0-33.0); MEAN CORPUSCULAR HGB CONC 34.1 g/dl (32.0-37.0); MEAN CORPUSCULAR VOLUME 82.3 fl (82.0-101.0); MEAN PLATELET VOLUME 9.8 fl (7.4-10.4); PLATELET COUNT 45 10^3/UL (140-415); POSITIVE DIFF @See below; RED BLOOD COUNT 2.99 10^6/ul (4.70-6.10); RED CELL DISTRIBUTION WIDTH 14.6 % (11.5-14.5)
[2018-02-09 07:18] LABS: ADD MAN DIFF? YES
[2018-02-09 08:02] LABS: ANION GAP 24 (8-16); BLOOD UREA NITROGEN 15 mg/dl (7-20); CALCIUM 8.4 mg/dl (8.4-10.2); CARBON DIOXIDE 16 mmol/L (21-31); CHLORIDE 104 mmol/L (97-110); CREATININE 0.83 mg/dl (0.61-1.24); GLUCOSE 85 mg/dl (70-220); MAGNESIUM 1.8 mg/dl (1.7-2.5); PHOSPHORUS 3.7 mg/dl (2.5-4.9); POTASSIUM 4.5 mmol/L (3.5-5.1); SODIUM 139 mmol/L (135-144)
[2018-02-09 08:50] LABS: ANISOCYTOSIS 3+ (0-0); BAND NEUTROPHILS #M 0.2 10^3/ul (0.0-0.6); BAND NEUTROPHILS % (M) 5 % (0-4); EOSINOPHILS % (M) 1 % (0-7); GIANT THROMBO% (M) 1 % (0-0); LYMPHOCYTES % (M) 64 % (15-51); METAMYELOCYTES %M 2 % (0-0); MICROCYTOSIS 3+ (0-0); MONOCYTE #M 0.3 10^3/ul (0.3-0.9); MONOCYTES % (M) 8 % (0-11); MYELOCYTES #M 0.2 10^3/ul (0.0-0.0); MYELOCYTES % (M) 5 % (0-0); PLATELET ESTIMATE SIG DECREASED; POLYCHROMASIA 1+ (0-0); PROMYELOCYTES #M 0.1 10^3/ul (0-0); PROMYELOCYTES % (M) 4 % (0-0); SEG NEUT #M 0.5 10^3/ul (1.6-7.5); SEGMENTED NEUTROPHILS (M) % 11 % (39-77); SMUDGE%M 79 % (0-0)
[2018-02-09] MEDS: FLUTICASONE 0.05% 16 GM NAS SPRAY NASAL ×2 (09:00→20:18)
[2018-02-09] MEDS: DOLUTEGRAVIR SODIUM 50 MG TABLET PO (09:14)
[2018-02-09] MEDS: EMTRICITABINE/TENOFOVIR TAB PO (09:14)
[2018-02-09] MEDS: LORATADINE/PSEUDOEPHED (SR) TAB PO ×2 (09:14→20:18)
[2018-02-09] MEDS: SENNA/DOCUSATE NA (8.6MG/50MG) TAB PO (09:15)
[2018-02-09] MEDS: CITALOPRAM 20 MG TAB PO (09:15)
[2018-02-09] MEDS: QUETIAPINE 25 MG TAB PO ×2 (09:15→20:18)
[2018-02-10] MEDS: POTASSIUM CHLORIDE IV ×4 (00:10→20:20)
[2018-02-10] MEDS: SOD CHLORIDE 0.9% IV ×4 (00:10→20:20)
[2018-02-10] MEDS: POTASSIUM PHOSPHATE IV ×4 (00:10→20:20)
[2018-02-10] MEDS: clonAZEPAM 0.5 MG TAB PO ×3 (05:16→22:10)
[2018-02-10] MEDS: PANTOPRAZOLE (EC) 40 MG TAB PO (05:16)
[2018-02-10] MEDS: AMPICILLIN 2 GM/NS (PMX) 100 ML IVPB ×2 (05:19→11:42)
[2018-02-10 07:20] LABS: WHITE BLOOD COUNT 4.8 10^3/ul (4.8-10.8)
[2018-02-10 07:20] LABS: ABNORMAL IP MESSAGE 1; HEMATOCRIT 22.4 % (42.0-52.0); HEMOGLOBIN 7.5 g/dl (14.0-18.0); MEAN CORPUSCULAR HEMOGLOBIN 27.6 pg (29.0-33.0); MEAN CORPUSCULAR HGB CONC 33.5 g/dl (32.0-37.0); MEAN CORPUSCULAR VOLUME 82.4 fl (82.0-101.0); PLATELET COUNT 40 10^3/UL (140-415); POSITIVE DIFF @See below; RED BLOOD COUNT 2.72 10^6/ul (4.70-6.10); RED CELL DISTRIBUTION WIDTH 14.6 % (11.5-14.5)
[2018-02-10 07:27] LABS: ADD MAN DIFF? YES
[2018-02-10 07:39] LABS: ANION GAP 19 (8-16); BLOOD UREA NITROGEN 16 mg/dl (7-20); CALCIUM 8.5 mg/dl (8.4-10.2); CARBON DIOXIDE 16 mmol/L (21-31); CHLORIDE 107 mmol/L (97-110); CREATININE 0.79 mg/dl (0.61-1.24); GLUCOSE 89 mg/dl (70-220); MAGNESIUM 1.7 mg/dl (1.7-2.5); PHOSPHORUS 3.8 mg/dl (2.5-4.9); POTASSIUM 4.3 mmol/L (3.5-5.1); SODIUM 138 mmol/L (135-144)
[2018-02-10] MEDS: SENNA/DOCUSATE NA (8.6MG/50MG) TAB PO (08:58)
[2018-02-10] MEDS: LORATADINE/PSEUDOEPHED (SR) TAB PO ×2 (08:58→20:34)
[2018-02-10] MEDS: CITALOPRAM 20 MG TAB PO (08:58)
[2018-02-10] MEDS: DOLUTEGRAVIR SODIUM 50 MG TABLET PO (08:59)
[2018-02-10] MEDS: QUETIAPINE 25 MG TAB PO ×2 (08:59→20:34)
[2018-02-10] MEDS: EMTRICITABINE/TENOFOVIR TAB PO (08:59)
[2018-02-10] MEDS: FLUTICASONE 0.05% 16 GM NAS SPRAY NASAL ×2 (09:07→20:34)
[2018-02-10 11:33] LABS: ANISOCYTOSIS 2+ (0-0); BAND NEUTROPHILS #M 0.5 10^3/ul (0.0-0.6); BAND NEUTROPHILS % (M) 12 % (0-4); BASOPHILS % (M) 2 % (0-2); GIANT THROMBO% (M) 3 % (0-0); LYMPHOCYTES #M 2.1 10^3/ul (0.8-2.9); LYMPHOCYTES % (M) 44 % (15-51); METAMYELOCYTES %M 2 % (0-0); MICROCYTOSIS 2+ (0-0); MONOCYTE #M 0.9 10^3/ul (0.3-0.9); MONOCYTES % (M) 20 % (0-11); MYELOCYTES #M 0.1 10^3/ul (0.0-0.0); MYELOCYTES % (M) 4 % (0-0); PLATELET ESTIMATE SIG DECREASED; POIKILOCYTOSIS 1+ (0-0); POLYCHROMASIA 2+ (0-0); PROMYELOCYTES % (M) 1 % (0-0); REACTIVE LYMPHOCYTES #M 0.1 10^3/ul (0.0-0.0); REACTIVE LYMPHOCYTES% (M) 3 % (0-0); SEG NEUT #M 0.6 10^3/ul (1.6-7.5); SEGMENTED NEUTROPHILS (M) % 12 % (39-77); SMUDGE%M 77 % (0-0)
[2018-02-10] MEDS: DEXTROSE 5% IVPB ×3 (15:55→22:11)
[2018-02-10] MEDS: PENICILLIN SODIUM IVPB ×3 (15:55→22:11)
[2018-02-11] MEDS: PENICILLIN SODIUM IVPB ×6 (02:46→22:57)
[2018-02-11] MEDS: DEXTROSE 5% IVPB ×6 (02:46→22:57)
[2018-02-11] MEDS: SOD CHLORIDE 0.9% IV ×2 (02:48→15:42)
[2018-02-11] MEDS: POTASSIUM CHLORIDE IV ×2 (02:48→15:42)
[2018-02-11] MEDS: POTASSIUM PHOSPHATE IV ×2 (02:48→15:42)
[2018-02-11] MEDS: clonAZEPAM 0.5 MG TAB PO ×3 (06:31→21:19)
[2018-02-11] MEDS: PANTOPRAZOLE (EC) 40 MG TAB PO (06:32)
[2018-02-11 06:50] LABS: WHITE BLOOD COUNT 5.4 10^3/ul (4.8-10.8)
[2018-02-11 06:50] LABS: ABNORMAL IP MESSAGE 1; HEMOGLOBIN 7.6 g/dl (14.0-18.0); MEAN CORPUSCULAR HEMOGLOBIN 28.4 pg (29.0-33.0); MEAN CORPUSCULAR HGB CONC 34.5 g/dl (32.0-37.0); MEAN CORPUSCULAR VOLUME 82.1 fl (82.0-101.0); MEAN PLATELET VOLUME 10.4 fl (7.4-10.4); PLATELET COUNT 44 10^3/UL (140-415); POSITIVE DIFF @See below; RED BLOOD COUNT 2.68 10^6/ul (4.70-6.10); RED CELL DISTRIBUTION WIDTH 14.7 % (11.5-14.5)
[2018-02-11 07:15] LABS: ADD MAN DIFF? YES
[2018-02-11 08:02] LABS: ANION GAP 24 (8-16); BLOOD UREA NITROGEN 15 mg/dl (7-20); CALCIUM 8.3 mg/dl (8.4-10.2); CARBON DIOXIDE 15 mmol/L (21-31); CHLORIDE 103 mmol/L (97-110); GLUCOSE 77 mg/dl (70-220); MAGNESIUM 1.7 mg/dl (1.7-2.5); PHOSPHORUS 3.9 mg/dl (2.5-4.9); POTASSIUM 4.4 mmol/L (3.5-5.1); SODIUM 138 mmol/L (135-144)
[2018-02-11] MEDS: LORATADINE/PSEUDOEPHED (SR) TAB PO ×2 (09:28→20:17)
[2018-02-11] MEDS: DOLUTEGRAVIR SODIUM 50 MG TABLET PO (09:28)
[2018-02-11] MEDS: EMTRICITABINE/TENOFOVIR TAB PO (09:28)
[2018-02-11] MEDS: QUETIAPINE 25 MG TAB PO ×2 (09:28→20:17)
[2018-02-11] MEDS: SENNA/DOCUSATE NA (8.6MG/50MG) TAB PO (09:29)
[2018-02-11] MEDS: CITALOPRAM 20 MG TAB PO (09:29)
[2018-02-11] MEDS: FLUTICASONE 0.05% 16 GM NAS SPRAY NASAL ×2 (09:29→20:17)
[2018-02-11 09:46] LABS: ANISOCYTOSIS 1+ (0-0); BAND NEUTROPHILS #M 0.7 10^3/ul (0.0-0.6); BAND NEUTROPHILS % (M) 13 % (0-4); BASOPHIL #M 0.3 10^3/ul (0.0-0.0); BASOPHILS % (M) 6 % (0-2); EOSINOPHILS % (M) 1 % (0-7); ERYTHROBLAST% (NRBC) (M) 1 % (0-0); GIANT THROMBO% (M) 1 % (0-0); LYMPHOCYTES #M 1.5 10^3/ul (0.8-2.9); LYMPHOCYTES % (M) 28 % (15-51); MICROCYTOSIS 1+ (0-0); MONOCYTE #M 0.5 10^3/ul (0.3-0.9); MONOCYTES % (M) 11 % (0-11); MYELOCYTES #M 0.1 10^3/ul (0.0-0.0); MYELOCYTES % (M) 3 % (0-0); PLATELET ESTIMATE DECREASED; PROMYELOCYTES #M 0.1 10^3/ul (0-0); PROMYELOCYTES % (M) 2 % (0-0); SEGMENTED NEUTROPHILS (M) % 37 % (39-77); SMUDGE%M 175 % (0-0)
[2018-02-12] MEDS: POTASSIUM PHOSPHATE IV ×4 (03:02→22:45)
[2018-02-12] MEDS: SOD CHLORIDE 0.9% IV ×4 (03:02→22:45)
[2018-02-12] MEDS: POTASSIUM CHLORIDE IV ×4 (03:02→22:45)
[2018-02-12] MEDS: PENICILLIN SODIUM IVPB ×6 (03:04→23:17)
[2018-02-12] MEDS: DEXTROSE 5% IVPB ×6 (03:04→23:17)
[2018-02-12] MEDS: PANTOPRAZOLE (EC) 40 MG TAB PO (05:26)
[2018-02-12] MEDS: clonAZEPAM 0.5 MG TAB PO ×3 (05:26→21:02)
[2018-02-12 07:17] LABS: WHITE BLOOD COUNT 7.4 10^3/ul (4.8-10.8)
[2018-02-12 07:17] LABS: ABNORMAL IP MESSAGE 1; HEMATOCRIT 21.6 % (42.0-52.0); HEMOGLOBIN 7.3 g/dl (14.0-18.0); MEAN CORPUSCULAR HGB CONC 33.8 g/dl (32.0-37.0); MEAN CORPUSCULAR VOLUME 82.8 fl (82.0-101.0); MEAN PLATELET VOLUME 10.5 fl (7.4-10.4); PLATELET COUNT 53 10^3/UL (140-415); POSITIVE DIFF @See below; RED BLOOD COUNT 2.61 10^6/ul (4.70-6.10); RED CELL DISTRIBUTION WIDTH 14.7 % (11.5-14.5)
[2018-02-12 07:24] LABS: ADD MAN DIFF? YES
[2018-02-12 07:39] LABS: ANION GAP 24 (8-16); BLOOD UREA NITROGEN 15 mg/dl (7-20); CALCIUM 8.3 mg/dl (8.4-10.2); CARBON DIOXIDE 15 mmol/L (21-31); CHLORIDE 104 mmol/L (97-110); CREATININE 0.87 mg/dl (0.61-1.24); GLUCOSE 79 mg/dl (70-220); MAGNESIUM 1.6 mg/dl (1.7-2.5); PHOSPHORUS 3.9 mg/dl (2.5-4.9); POTASSIUM 4.5 mmol/L (3.5-5.1); SODIUM 138 mmol/L (135-144)
[2018-02-12] MEDS: DOLUTEGRAVIR SODIUM 50 MG TABLET PO (09:00)
[2018-02-12] MEDS: QUETIAPINE 25 MG TAB PO ×2 (09:00→20:58)
[2018-02-12] MEDS: LORATADINE/PSEUDOEPHED (SR) TAB PO ×2 (09:00→20:58)
[2018-02-12] MEDS: EMTRICITABINE/TENOFOVIR TAB PO (09:00)
[2018-02-12] MEDS: SENNA/DOCUSATE NA (8.6MG/50MG) TAB PO (09:01)
[2018-02-12] MEDS: FLUTICASONE 0.05% 16 GM NAS SPRAY NASAL ×2 (09:01→20:58)
[2018-02-12] MEDS: CITALOPRAM 20 MG TAB PO (09:01)
[2018-02-12 10:06] LABS: ANISOCYTOSIS 2+ (0-0); BAND NEUTROPHILS #M 0.9 10^3/ul (0.0-0.6); BAND NEUTROPHILS % (M) 13 % (0-4); BASOPHILS % (M) 1 % (0-2); LYMPHOCYTES #M 1.6 10^3/ul (0.8-2.9); LYMPHOCYTES % (M) 22 % (15-51); METAMYELOCYTES #M 0.2 10^3/ul (0.0-0.0); METAMYELOCYTES %M 4 % (0-0); MICROCYTOSIS 2+ (0-0); MONOCYTES % (M) 14 % (0-11); MYELOCYTES #M 0.4 10^3/ul (0.0-0.0); MYELOCYTES % (M) 6 % (0-0); PLATELET ESTIMATE SIG DECREASED; PROMYELOCYTES % (M) 1 % (0-0); REACTIVE LYMPHOCYTES #M 0.2 10^3/ul (0.0-0.0); REACTIVE LYMPHOCYTES% (M) 3 % (0-0); SEG NEUT #M 2.7 10^3/ul (1.6-7.5); SEGMENTED NEUTROPHILS (M) % 36 % (39-77); SMUDGE%M 58 % (0-0)
[2018-02-12] MEDS: MAGNESIUM SULFATE 2 GM/50 ML 50 ML IVPB (11:15)
[2018-02-12 18:41] LABS: AMMONIA 20 umol/l (9-30)
[2018-02-13] MEDS: POTASSIUM PHOSPHATE IV ×4 (02:45→18:25)
[2018-02-13] MEDS: POTASSIUM CHLORIDE IV ×4 (02:45→18:25)
[2018-02-13] MEDS: PENICILLIN SODIUM IVPB ×6 (02:45→22:20)
[2018-02-13] MEDS: DEXTROSE 5% IVPB ×6 (02:45→22:20)
[2018-02-13] MEDS: SOD CHLORIDE 0.9% IV ×4 (02:45→18:25)
[2018-02-13] MEDS: PANTOPRAZOLE (EC) 40 MG TAB PO (05:44)
[2018-02-13] MEDS: clonAZEPAM 0.5 MG TAB PO ×3 (05:44→21:47)
[2018-02-13] MEDS: DOLUTEGRAVIR SODIUM 50 MG TABLET PO (08:45)
[2018-02-13] MEDS: LORATADINE/PSEUDOEPHED (SR) TAB PO ×2 (08:46→21:47)
[2018-02-13] MEDS: SENNA/DOCUSATE NA (8.6MG/50MG) TAB PO (08:46)
[2018-02-13] MEDS: QUETIAPINE 25 MG TAB PO ×2 (08:46→21:47)
[2018-02-13] MEDS: FLUTICASONE 0.05% 16 GM NAS SPRAY NASAL ×2 (08:46→21:00)
[2018-02-13] MEDS: CITALOPRAM 20 MG TAB PO (08:46)
[2018-02-13] MEDS: EMTRICITABINE/TENOFOVIR TAB PO (08:46)
[2018-02-13 09:22] LABS: HEMATOCRIT 20.3 % (42.0-52.0); MEAN CORPUSCULAR HEMOGLOBIN 27.9 pg (29.0-33.0); MEAN CORPUSCULAR VOLUME 82.2 fl (82.0-101.0); MEAN PLATELET VOLUME 9.7 fl (7.4-10.4); PLATELET COUNT 46 10^3/UL (140-415); RED BLOOD COUNT 2.47 10^6/ul (4.70-6.10); RED CELL DISTRIBUTION WIDTH 15.2 % (11.5-14.5)
[2018-02-13 09:22] LABS: WHITE BLOOD COUNT 6.2 10^3/ul (4.8-10.8)
[2018-02-13 09:23] LABS: ABNORMAL IP MESSAGE 1; POSITIVE DIFF @See below
[2018-02-13 09:47] LABS: ADD MAN DIFF? YES; HEMOGLOBIN 6.9 g/dl (14.0-18.0)
[2018-02-13 10:24] LABS: ANISOCYTOSIS 1+ (0-0); BAND NEUTROPHILS #M 1.3 10^3/ul (0.0-0.6); BAND NEUTROPHILS % (M) 21 % (0-4); BASOPHIL #M 0.1 10^3/ul (0.0-0.0); BASOPHILS % (M) 3 % (0-2); LYMPHOCYTES #M 1.7 10^3/ul (0.8-2.9); LYMPHOCYTES % (M) 29 % (15-51); METAMYELOCYTES %M 1 % (0-0); MICROCYTOSIS 1+ (0-0); MYELOCYTES #M 0.1 10^3/ul (0.0-0.0); MYELOCYTES % (M) 3 % (0-0); PLATELET ESTIMATE SIG DECREASED; POIKILOCYTOSIS 1+ (0-0); PROMYELOCYTES % (M) 1 % (0-0); REACTIVE LYMPHOCYTES #M 0.1 10^3/ul (0.0-0.0); REACTIVE LYMPHOCYTES% (M) 3 % (0-0); SEG NEUT #M 2.5 10^3/ul (1.6-7.5); SEGMENTED NEUTROPHILS (M) % 39 % (39-77); SMUDGE%M 132 % (0-0)
[2018-02-13 11:40] LABS: HEMATOCRIT 20.8 % (42.0-52.0); HEMOGLOBIN 7.1 g/dl (14.0-18.0)
[2018-02-13] MEDS ORDERED: ALBUTEROL/IPRATROPIUM (NEB) 3 ML AMP HHN (15:30)
[2018-02-13 15:36] LABS: AADO2 Arterial 595.8 mmHg (7.0-24.0); Allen Test ACCEPTAB; Arterial Base Excess -19.9 mmol/L (-3.0-3); Arterial Blood Gas Oxygen Sat 94.5 mmHG (95.0-98.0); Arterial COHb 0 % (0.0-3.0); Arterial Fraction of Oxyhgb 93.9 % (93.0-99.0); Arterial HCO3 6.3 mmol/L (22.0-26.0); Arterial MetHb 0.6 % (0.0-1.5); Arterial Total Hemglobin 7.5 g/dl (12.0-18.0); Arterial pCO2 16.7 mmhg (35-45); MODE MASK - NRB; Site Right Radial
[2018-02-13] MEDS: ALBUTEROL/IPRATROPIUM (NEB) 3 ML AMP HHN (15:45)
[2018-02-13 16:18] LABS: LACTIC ACID 7.9 mmol/L (0.5-2.0)
[2018-02-13] MEDS: NA BICARBONATE 8.4% 50 ML SYG IV ×3 (16:22→21:47)
[2018-02-13] MEDS ORDERED: PROPOFOL 100 ML (16:35)
[2018-02-13] MEDS ORDERED: NORepinephrine 8MG/250 ML (PMX 250 ML (17:33)
[2018-02-13] MEDS: PROPOFOL 100 ML IV ×3 (17:54→23:31)
[2018-02-13] MEDS: NORepinephrine 8MG/250 ML (PMX 250 ML IV (18:33)
[2018-02-13 18:44] LABS: AADO2 Arterial 535.8 mmHg (7.0-24.0); Allen Test ACCEPTAB; Arterial Base Excess -16.8 mmol/L (-3.0-3); Arterial Blood Gas Oxygen Sat 97.4 mmHG (95.0-98.0); Arterial COHb 0.3 % (0.0-3.0); Arterial Fraction of Oxyhgb 96.5 % (93.0-99.0); Arterial HCO3 10.1 mmol/L (22.0-26.0); Arterial MetHb 0.6 % (0.0-1.5); Arterial Total Hemglobin 8.1 g/dl (12.0-18.0); Arterial pCO2 27.3 mmhg (35-45); MODE VENT - AC; Site Right Radial
[2018-02-13] MEDS: FENTAnyl (DRIP) 1000 mcg/100mL 100 ML IV (18:47)
[2018-02-13 19:22] LABS: ADD UMIC YES; UR AMORPHOUS CRYSTAL FEW /HPF (NONE SEEN); UR ASCORBIC ACID NEGATIVE (NEGATIVE); UR BACTERIA FEW /HPF (NONE SEEN); UR BILIRUBIN (Dip) NEGATIVE (NEGATIVE); UR BLOOD (Dip) 1+ mg/dL (NEGATIVE); UR CLARITY CLOUDY (CLEAR); UR COLOR YELLOW (YELLOW); UR GLUCOSE (Dip) NEGATIVE (NEGATIVE); UR GRANULAR CAST FEW /HPF (NONE SEEN); UR KETONES (Dip) 1+ mg/dL (NEGATIVE); UR LEUKOCYTE ESTERASE (Dip) NEGATIVE Leu/ul (NEGATIVE); UR MUCUS FEW /HPF (NONE SEEN); UR NITRITE (Dip) NEGATIVE (NEGATIVE); UR RBC 2 /HPF (0-5); UR SPECIFIC GRAVITY (Dip) 1.019 (1.003-1.030); UR SQUAMOUS EPITHELIAL CELL FEW /HPF (FEW); UR TOTAL PROTEIN (Dip) 1+ mg/dl (NEGATIVE); UR UROBILINOGEN (Dip) NEGATIVE (NEGATIVE); UR WBC 4 /HPF (0-5)
[2018-02-13 19:35] LABS: SODIUM,URINE RANDOM 28 mmol/L (30-90)
[2018-02-13 19:35] LABS: CREATININE,URINE RANDOM 49.96 mg/dl (20-370)
[2018-02-14] MEDS: SOD CHLORIDE 0.9% IV (01:40)
[2018-02-14] MEDS: POTASSIUM CHLORIDE IV (01:40)
[2018-02-14] MEDS: POTASSIUM PHOSPHATE IV (01:40)
[2018-02-14] MEDS: DEXTROSE 5% IVPB ×3 (02:48→10:53)
[2018-02-14] MEDS: PENICILLIN SODIUM IVPB ×3 (02:48→10:53)
[2018-02-14] MEDS: PROPOFOL 100 ML IV ×6 (03:20→21:14)
[2018-02-14 05:21] LABS: WHITE BLOOD COUNT 5.2 10^3/ul (4.8-10.8)
[2018-02-14 05:21] LABS: ABNORMAL IP MESSAGE 1; HEMATOCRIT 21.2 % (42.0-52.0); HEMOGLOBIN 7.6 g/dl (14.0-18.0); MEAN CORPUSCULAR HEMOGLOBIN 30.4 pg (29.0-33.0); MEAN CORPUSCULAR HGB CONC 35.8 g/dl (32.0-37.0); MEAN CORPUSCULAR VOLUME 84.8 fl (82.0-101.0); MEAN PLATELET VOLUME 9.2 fl (7.4-10.4); PLATELET COUNT 48 10^3/UL (140-415); POSITIVE DIFF @See below; RED CELL DISTRIBUTION WIDTH 16.5 % (11.5-14.5)
[2018-02-14 05:31] LABS: LACTIC ACID 8.2 mmol/L (0.5-2.0)
[2018-02-14] MEDS: SOD CHLORIDE 0.9% 500 ML IV (05:46)
[2018-02-14] MEDS: PANTOPRAZOLE (EC) 40 MG TAB PO (05:46)
[2018-02-14] MEDS: clonAZEPAM 0.5 MG TAB PO ×3 (05:46→22:44)
[2018-02-14 05:56] LABS: ALANINE AMINOTRANSFERASE 29 IU/L (13-69); ALBUMIN 2.7 g/dl (3.3-4.9); ALBUMIN/GLOBULIN RATIO 0.93; ALKALINE PHOSPHATASE 185 IU/L (42-121); ANION GAP 20 (8-16); ASPARTATE AMINO TRANSFERASE 79 IU/L (15-46); BILIRUBIN,INDIRECT 0.2 mg/dl (0-1.1); BILIRUBIN,TOTAL 0.2 mg/dl (0.2-1.3); BLOOD UREA NITROGEN 26 mg/dl (7-20); CALCIUM 7.3 mg/dl (8.4-10.2); CARBON DIOXIDE 19 mmol/L (21-31); CHLORIDE 110 mmol/L (97-110); CREATININE 1.12 mg/dl (0.61-1.24); GLUCOSE 100 mg/dl (70-220); MAGNESIUM 2.1 mg/dl (1.7-2.5); SODIUM 144 mmol/L (135-144); TOTAL PROTEIN 5.6 g/dl (6.1-8.1)
[2018-02-14 06:01] LABS: ADD MAN DIFF? YES
[2018-02-14 07:22] LABS: AADO2 Arterial 233.9 mmHg (7.0-24.0); Allen Test ACCEPTAB; Arterial Base Excess -7.7 mmol/L (-3.0-3); Arterial Blood Gas Oxygen Sat 99.1 mmHG (95.0-98.0); Arterial COHb 0.3 % (0.0-3.0); Arterial Fraction of Oxyhgb 98.3 % (93.0-99.0); Arterial HCO3 16.1 mmol/L (22.0-26.0); Arterial MetHb 0.5 % (0.0-1.5); Arterial Total Hemglobin 7.2 g/dl (12.0-18.0); Arterial pCO2 26.4 mmhg (35-45); MODE VENT - AC; Site Right Radial
[2018-02-14] MEDS: ACETAMINOPHEN 325 MG TAB PO ×3 (07:32→21:15)
[2018-02-14 08:06] LABS: ANISOCYTOSIS 2+ (0-0); BAND NEUTROPHILS #M 0.9 10^3/ul (0.0-0.6); BAND NEUTROPHILS % (M) 18 % (0-4); EOSINOPHILS % (M) 2 % (0-7); LYMPHOCYTES #M 1.5 10^3/ul (0.8-2.9); LYMPHOCYTES % (M) 29 % (15-51); METAMYELOCYTES %M 1 % (0-0); MICROCYTOSIS 2+ (0-0); MONOCYTE #M 0.1 10^3/ul (0.3-0.9); MONOCYTES % (M) 2 % (0-11); MYELOCYTES % (M) 1 % (0-0); PLATELET ESTIMATE SIG DECREASED; POIKILOCYTOSIS 1+ (0-0); POLYCHROMASIA 1+ (0-0); PROMYELOCYTES % (M) 1 % (0-0); SEG NEUT #M 2.4 10^3/ul (1.6-7.5); SEGMENTED NEUTROPHILS (M) % 46 % (39-77); SMUDGE%M 155 % (0-0)
[2018-02-14] MEDS: CITALOPRAM 20 MG TAB PO (08:24)
[2018-02-14] MEDS: EMTRICITABINE/TENOFOVIR TAB PO (08:24)
[2018-02-14] MEDS: LORATADINE/PSEUDOEPHED (SR) TAB PO ×2 (08:24→21:15)
[2018-02-14] MEDS: SENNA/DOCUSATE NA (8.6MG/50MG) TAB PO (08:24)
[2018-02-14] MEDS: FLUTICASONE 0.05% 16 GM NAS SPRAY NASAL ×2 (08:24→21:00)
[2018-02-14] MEDS: DOLUTEGRAVIR SODIUM 50 MG TABLET PO (08:24)
[2018-02-14] MEDS: QUETIAPINE 25 MG TAB PO ×2 (08:24→21:25)
[2018-02-14] MEDS: SOD CHLORIDE 0.9% 1,000 ML IV ×3 (08:53→23:06)
[2018-02-14 10:58] LABS: LACTIC ACID 7.2 mmol/L (0.5-2.0)
[2018-02-14] MEDS ORDERED: VANCOMYCIN IV PER PHARMACY XX (11:00)
[2018-02-14] MEDS: VANCOMYCIN 1.5 GM in SOD CHLORIDE 0.9% 250 ML IVPB (12:23)
[2018-02-14] MEDS: FENTAnyl (DRIP) 1000 mcg/100mL 100 ML IV (13:38)
[2018-02-14] MEDS: MEROPENEM 1 GM/50ML(PMX) 50 ML IVPB ×2 (14:24→22:44)
[2018-02-14 15:01] LABS: CREATININE, RANDOM URINE 62 mg/dL (20-370); MICROALBUMIN 5.2 mg/dL; MICROALBUMIN/CREATININE RATIO 84 (<30)
[2018-02-14] MEDS: LAMIVUDINE/ZIDOVUDINE TAB PO (21:15)
[2018-02-14] MEDS: ACETAMINOPHEN 1000MG/100ML IV 100 ML IVPB (23:05)
[2018-02-15] MEDS: VANCOMYCIN 500MG/NS (PMX) 100 ML IVPB ×2 (00:23→11:41)
[2018-02-15 00:37] LABS: LACTIC ACID 8.8 mmol/L (0.5-2.0)
[2018-02-15] MEDS: FENTAnyl (DRIP) 1000 mcg/100mL 100 ML IV ×2 (00:54→16:33)
[2018-02-15] MEDS: PROPOFOL 100 ML IV ×5 (01:10→23:02)
[2018-02-15] MEDS: SOD CHLORIDE 0.9% 1,000 ML IV ×4 (01:10→06:25)
[2018-02-15] MEDS: ACETAMINOPHEN 1000MG/100ML IV 100 ML IVPB ×4 (04:24→23:02)
[2018-02-15] MEDS: SOD CHLORIDE 0.9% 500 ML IV (04:49)
[2018-02-15] MEDS: PANTOPRAZOLE (EC) 40 MG TAB PO (05:16)
[2018-02-15] MEDS: clonAZEPAM 0.5 MG TAB PO ×3 (05:16→21:13)
[2018-02-15] MEDS: MEROPENEM 1 GM/50ML(PMX) 50 ML IVPB ×3 (05:16→21:01)
[2018-02-15 05:35] LABS: WHITE BLOOD COUNT 4.7 10^3/ul (4.8-10.8)
[2018-02-15 05:35] LABS: ABNORMAL IP MESSAGE 1; HEMATOCRIT 18.7 % (42.0-52.0); HEMOGLOBIN 7.1 g/dl (14.0-18.0); MEAN CORPUSCULAR HEMOGLOBIN 33.8 pg (29.0-33.0); MEAN PLATELET VOLUME 9.4 fl (7.4-10.4); PLATELET COUNT 36 10^3/UL (140-415); POSITIVE DIFF @See below; RED CELL DISTRIBUTION WIDTH 16.7 % (11.5-14.5)
[2018-02-15 05:42] LABS: ADD MAN DIFF? YES
[2018-02-15 05:55] LABS: ALANINE AMINOTRANSFERASE 28 IU/L (13-69); ALBUMIN 2.3 g/dl (3.3-4.9); ALBUMIN/GLOBULIN RATIO 0.85; ALKALINE PHOSPHATASE 196 IU/L (42-121); ANION GAP 19 (8-16); ASPARTATE AMINO TRANSFERASE 98 IU/L (15-46); BILIRUBIN,INDIRECT 0.1 mg/dl (0-1.1); BILIRUBIN,TOTAL 0.1 mg/dl (0.2-1.3); BLOOD UREA NITROGEN 34 mg/dl (7-20); CALCIUM 6.6 mg/dl (8.4-10.2); CARBON DIOXIDE 15 mmol/L (21-31); CHLORIDE 116 mmol/L (97-110); GLUCOSE 98 mg/dl (70-220); MAGNESIUM 2.1 mg/dl (1.7-2.5); POTASSIUM 4.9 mmol/L (3.5-5.1); SODIUM 145 mmol/L (135-144)
[2018-02-15 06:01] LABS: LACTIC ACID 8.8 mmol/L (0.5-2.0)
[2018-02-15] MEDS: METOPROLOL 5 MG INJ IV (06:22)
[2018-02-15 06:53] LABS: ANISOCYTOSIS 1+ (0-0); BAND NEUTROPHILS #M 0.7 10^3/ul (0.0-0.6); BAND NEUTROPHILS % (M) 17 % (0-4); EOSINOPHILS % (M) 1 % (0-7); GIANT THROMBO% (M) 1 % (0-0); LYMPHOCYTES #M 2.6 10^3/ul (0.8-2.9); LYMPHOCYTES % (M) 56 % (15-51); METAMYELOCYTES #M 0.1 10^3/ul (0.0-0.0); METAMYELOCYTES %M 3 % (0-0); MICROCYTOSIS 1+ (0-0); MONOCYTES % (M) 1 % (0-11); MYELOCYTES #M 0.1 10^3/ul (0.0-0.0); MYELOCYTES % (M) 4 % (0-0); PLATELET ESTIMATE SIG DECREASED; SEG NEUT #M 0.9 10^3/ul (1.6-7.5); SEGMENTED NEUTROPHILS (M) % 18 % (39-77); SMUDGE%M 127 % (0-0)
[2018-02-15] MEDS: SENNA/DOCUSATE NA (8.6MG/50MG) TAB PO (08:01)
[2018-02-15] MEDS: LORATADINE/PSEUDOEPHED (SR) TAB PO ×2 (08:01→21:01)
[2018-02-15] MEDS: CITALOPRAM 20 MG TAB PO (08:01)
[2018-02-15] MEDS: LAMIVUDINE/ZIDOVUDINE TAB PO ×2 (08:02→21:01)
[2018-02-15] MEDS: QUETIAPINE 25 MG TAB PO ×2 (08:02→21:01)
[2018-02-15] MEDS: DOLUTEGRAVIR SODIUM 50 MG TABLET PO (08:02)
[2018-02-15 08:25] LABS: AADO2 Arterial 129.9 mmHg (7.0-24.0); Allen Test ACCEPTAB; Arterial Base Excess -12.1 mmol/L (-3.0-3); Arterial Blood Gas Oxygen Sat 96.4 mmHG (95.0-98.0); Arterial COHb 0.3 % (0.0-3.0); Arterial Fraction of Oxyhgb 95.9 % (93.0-99.0); Arterial HCO3 13.5 mmol/L (22.0-26.0); Arterial MetHb 0.2 % (0.0-1.5); Arterial Total Hemglobin 6.5 g/dl (12.0-18.0); Arterial pCO2 29.3 mmhg (35-45); MODE VENT - AC; Site Right Radial
[2018-02-15 09:23] LABS: LACTIC ACID 9.2 mmol/L (0.5-2.0)
[2018-02-15] MEDS: SODIUM BICARBONATE (IV ADD) 150 MEQ in DEXTROSE 5% 1,000 ML IV ×2 (09:35→20:22)
[2018-02-15 10:42] LABS: TYPE AND SCREEN 1
[2018-02-15 12:56] LABS: FREE T4 (FREE THYROXINE) 0.68 ng/dl (0.64-1.79)
[2018-02-15 13:22] LABS: IMMEDIATE SPIN CROSSMATCH 1 2
[2018-02-15] MEDS: AMIODARONE 150MG/D5W BOLUS 100 ML IV (14:20)
[2018-02-15 14:24] LABS: Allen Test ACCEPTAB; Arterial Base Excess -12.4 mmol/L (-3.0-3); Arterial COHb 0.3 % (0.0-3.0); Arterial HCO3 13.1 mmol/L (22.0-26.0); Arterial MetHb 0.7 % (0.0-1.5); Arterial Total Hemglobin 6.1 g/dl (12.0-18.0); MODE VENT - AC; Site Right Radial
[2018-02-15] MEDS: AMIODARONE 900 MG in DEXTROSE 5% 482 ML IV (14:33)
[2018-02-15] MEDS: CASPOFUNGIN 70 MG in SOD CHLORIDE 0.9% 250 ML IVPB (15:45)
[2018-02-15 16:54] LABS: CREATINE KINASE 532 IU/L (23-200)
[2018-02-15 17:07] LABS: CK INDEX 0.2; CK-MB 0.96 ng/ml (0.0-2.4)
[2018-02-15 17:30] LABS: ANION GAP 19 (8-16); BLOOD UREA NITROGEN 36 mg/dl (7-20); CALCIUM 6.6 mg/dl (8.4-10.2); CARBON DIOXIDE 15 mmol/L (21-31); CHLORIDE 115 mmol/L (97-110); CREATININE 1.24 mg/dl (0.61-1.24); GLUCOSE 116 mg/dl (70-220); POTASSIUM 4.4 mmol/L (3.5-5.1); SODIUM 145 mmol/L (135-144)
[2018-02-15 17:44] LABS: LACTIC ACID 10.3 mmol/L (0.5-2.0)
[2018-02-15 17:44] LABS: TROPONIN-I 0.146 ng/ml (0.000-0.120)
[2018-02-16] MEDS: VANCOMYCIN 500MG/NS (PMX) 100 ML IVPB ×2 (00:13→12:21)
[2018-02-16] MEDS: NA BICARBONATE 8.4% 50 ML SYG IV (00:13)
[2018-02-16 01:19] LABS: CREATINE KINASE 652 IU/L (23-200)
[2018-02-16 01:32] LABS: CK INDEX 0.1; CK-MB 0.94 ng/ml (0.0-2.4)
[2018-02-16 01:37] LABS: TROPONIN-I 0.159 ng/ml (0.000-0.120)
[2018-02-16] MEDS: PROPOFOL 100 ML IV ×2 (04:26→05:55)
[2018-02-16] MEDS: AMIODARONE 900 MG in DEXTROSE 5% 482 ML IV (04:26)
[2018-02-16] MEDS: SODIUM BICARBONATE (IV ADD) 150 MEQ in DEXTROSE 5% 1,000 ML IV ×3 (04:27→21:32)
[2018-02-16] MEDS: ACETAMINOPHEN 1000MG/100ML IV 100 ML IVPB ×4 (04:32→23:50)
[2018-02-16 04:54] LABS: WHITE BLOOD COUNT 3.5 10^3/ul (4.8-10.8)
[2018-02-16 04:54] LABS: ABNORMAL IP MESSAGE 1; HEMATOCRIT 20.5 % (42.0-52.0); HEMOGLOBIN 8.1 g/dl (14.0-18.0); MEAN CORPUSCULAR HEMOGLOBIN 35.5 pg (29.0-33.0); MEAN CORPUSCULAR VOLUME 89.9 fl (82.0-101.0); MEAN PLATELET VOLUME 9.4 fl (7.4-10.4); PLATELET COUNT 65 10^3/UL (140-415); POSITIVE DIFF @See below; RED BLOOD COUNT 2.28 10^6/ul (4.70-6.10); RED CELL DISTRIBUTION WIDTH 16.6 % (11.5-14.5)
[2018-02-16 05:26] LABS: CREATINE KINASE 780 IU/L (23-200)
[2018-02-16 05:27] LABS: MEAN CORPUSCULAR HGB CONC 39.5 g/dl (32.0-37.0)
[2018-02-16 05:28] LABS: ADD MAN DIFF? YES; ANION GAP 26 (8-16); BLOOD UREA NITROGEN 43 mg/dl (7-20); CALCIUM 6.2 mg/dl (8.4-10.2); CARBON DIOXIDE 14 mmol/L (21-31); CHLORIDE 109 mmol/L (97-110); CREATININE 1.53 mg/dl (0.61-1.24); GLUCOSE 100 mg/dl (70-220); PHOSPHORUS 7.8 mg/dl (2.5-4.9); POTASSIUM 4.5 mmol/L (3.5-5.1); SODIUM 144 mmol/L (135-144)
[2018-02-16 05:31] LABS: ALANINE AMINOTRANSFERASE 39 IU/L (13-69); ALBUMIN 2.6 g/dl (3.3-4.9); ALBUMIN/GLOBULIN RATIO 0.92; ALKALINE PHOSPHATASE 419 IU/L (42-121); ANION GAP 25 (8-16); ASPARTATE AMINO TRANSFERASE 169 IU/L (15-46); BILIRUBIN,INDIRECT 0.1 mg/dl (0-1.1); BILIRUBIN,TOTAL 0.2 mg/dl (0.2-1.3); BLOOD UREA NITROGEN 42 mg/dl (7-20); CALCIUM 6.2 mg/dl (8.4-10.2); CARBON DIOXIDE 13 mmol/L (21-31); CHLORIDE 110 mmol/L (97-110); CREATININE 1.63 mg/dl (0.61-1.24); GLUCOSE 99 mg/dl (70-220); MAGNESIUM 2.1 mg/dl (1.7-2.5); POTASSIUM 4.5 mmol/L (3.5-5.1); SODIUM 143 mmol/L (135-144); TOTAL PROTEIN 5.4 g/dl (6.1-8.1)
[2018-02-16 05:39] LABS: CK INDEX 0.1
[2018-02-16 05:40] LABS: TROPONIN-I 0.184 ng/ml (0.000-0.120)
[2018-02-16] MEDS: PANTOPRAZOLE (EC) 40 MG TAB PO (05:54)
[2018-02-16] MEDS: clonAZEPAM 0.5 MG TAB PO ×3 (05:54→21:22)
[2018-02-16] MEDS: MEROPENEM 1 GM/50ML(PMX) 50 ML IVPB ×3 (05:54→21:22)
[2018-02-16] MEDS: FENTAnyl (DRIP) 1000 mcg/100mL 100 ML IV ×2 (07:21→21:31)
[2018-02-16 08:35] LABS: AADO2 Arterial 79.2 mmHg (7.0-24.0); Allen Test ACCEPTAB; Arterial Base Excess -12.3 mmol/L (-3.0-3); Arterial Blood Gas Oxygen Sat 95.5 mmHG (95.0-98.0); Arterial COHb 0.3 % (0.0-3.0); Arterial Fraction of Oxyhgb 94.6 % (93.0-99.0); Arterial HCO3 13.3 mmol/L (22.0-26.0); Arterial MetHb 0.6 % (0.0-1.5); Arterial Total Hemglobin 6.6 g/dl (12.0-18.0); Arterial pCO2 28.8 mmhg (35-45); MODE VENT - AC; Site Right Radial
[2018-02-16] MEDS: SENNA/DOCUSATE NA (8.6MG/50MG) TAB PO (08:50)
[2018-02-16] MEDS: QUETIAPINE 25 MG TAB PO ×2 (08:50→21:22)
[2018-02-16] MEDS: CITALOPRAM 20 MG TAB PO (08:50)
[2018-02-16] MEDS: DOLUTEGRAVIR SODIUM 50 MG TABLET PO (08:50)
[2018-02-16] MEDS: LAMIVUDINE/ZIDOVUDINE TAB PO ×2 (08:50→21:22)
[2018-02-16] MEDS: LORATADINE/PSEUDOEPHED (SR) TAB PO ×2 (08:52→21:22)
[2018-02-16 10:03] LABS: ANISOCYTOSIS 2+ (0-0); BAND NEUTROPHILS #M 0.8 10^3/ul (0.0-0.6); BAND NEUTROPHILS % (M) 25 % (0-4); BASOPHILS % (M) 2 % (0-2); ERYTHROBLAST% (NRBC) (M) 1 % (0-0); GIANT THROMBO% (M) 1 % (0-0); LYMPHOCYTES #M 1.6 10^3/ul (0.8-2.9); LYMPHOCYTES % (M) 48 % (15-51); METAMYELOCYTES %M 1 % (0-0); MICROCYTOSIS 2+ (0-0); MYELOCYTES % (M) 1 % (0-0); PLATELET ESTIMATE SIG DECREASED; POIKILOCYTOSIS 1+ (0-0); POLYCHROMASIA 1+ (0-0); PROMYELOCYTES % (M) 1 % (0-0); SEG NEUT #M 0.8 10^3/ul (1.6-7.5); SEGMENTED NEUTROPHILS (M) % 22 % (39-77); SMUDGE%M 29 % (0-0)
[2018-02-16] MEDS: AMIODARONE 200 MG TAB PO ×2 (13:30→21:22)
[2018-02-16] MEDS: PHENYLephrine 80 MG in DEXTROSE 5% 492 ML IV (15:04)
[2018-02-16] MEDS: CASPOFUNGIN 50 MG in SOD CHLORIDE 0.9% 250 ML IVPB (16:31)
[2018-02-17] MEDS: SODIUM BICARBONATE (IV ADD) 150 MEQ in DEXTROSE 5% 1,000 ML IV ×2 (04:17→12:12)
[2018-02-17] MEDS: PHENYLephrine 80 MG in DEXTROSE 5% 492 ML IV ×2 (04:19→15:41)
[2018-02-17] MEDS: clonAZEPAM 0.5 MG TAB PO ×2 (05:17→15:37)
[2018-02-17] MEDS: PANTOPRAZOLE (EC) 40 MG TAB PO (05:17)
[2018-02-17] MEDS: MEROPENEM 1 GM/50ML(PMX) 50 ML IVPB (05:17)
[2018-02-17] MEDS: ACETAMINOPHEN 1000MG/100ML IV 100 ML IVPB ×2 (05:17→12:10)
[2018-02-17 05:23] LABS: ABNORMAL IP MESSAGE 1; MEAN CORPUSCULAR VOLUME 86.5 fl (82.0-101.0); MEAN PLATELET VOLUME 10.7 fl (7.4-10.4); PLATELET COUNT 57 10^3/UL (140-415); RED BLOOD COUNT 2.52 10^6/ul (4.70-6.10)
[2018-02-17 05:23] LABS: WHITE BLOOD COUNT 3.5 10^3/ul (4.8-10.8)
[2018-02-17 05:38] LABS: ADD MAN DIFF? YES
[2018-02-17 05:39] LABS: MAGNESIUM 2.1 mg/dl (1.7-2.5)
[2018-02-17 05:39] LABS: PHOSPHORUS 11.2 mg/dl (2.5-4.9)
[2018-02-17 05:42] LABS: VANCOMYCIN,RANDOM 18.2 ug/ml
[2018-02-17] MEDS: FENTAnyl (DRIP) 1000 mcg/100mL 100 ML IV (06:18)
[2018-02-17 07:14] LABS: BASOPHILS % 0.9 % (0.0-2.0)
[2018-02-17 07:53] LABS: LACTIC ACID 13.5 mmol/L (0.5-2.0)
[2018-02-17 08:08] LABS: HEMATOCRIT 22.2 % (42.0-52.0); HEMOGLOBIN 7.4 g/dl (14.0-18.0)
[2018-02-17 08:09] LABS: MEAN CORPUSCULAR HEMOGLOBIN 28.8 pg (29.0-33.0); MEAN CORPUSCULAR HGB CONC 33.3 g/dl (32.0-37.0)
[2018-02-17] MEDS: DOLUTEGRAVIR SODIUM 50 MG TABLET PO (08:40)
[2018-02-17] MEDS: SENNA/DOCUSATE NA (8.6MG/50MG) TAB PO (08:41)
[2018-02-17] MEDS: LAMIVUDINE/ZIDOVUDINE TAB PO (08:41)
[2018-02-17] MEDS: AMIODARONE 200 MG TAB PO (08:41)
[2018-02-17] MEDS: CITALOPRAM 20 MG TAB PO (08:41)
[2018-02-17] MEDS: LORATADINE/PSEUDOEPHED (SR) TAB PO (08:42)
[2018-02-17] MEDS: QUETIAPINE 25 MG TAB PO (08:45)
[2018-02-17 09:21] LABS: AADO2 Arterial 55.2 mmHg (7.0-24.0); Allen Test ACCEPTAB; Arterial Base Excess -8.6 mmol/L (-3.0-3); Arterial COHb 0.1 % (0.0-3.0); Arterial Fraction of Oxyhgb 96.6 % (93.0-99.0); Arterial HCO3 16.2 mmol/L (22.0-26.0); Arterial MetHb 0.3 % (0.0-1.5); Arterial Total Hemglobin 8.2 g/dl (12.0-18.0); Arterial pCO2 30.8 mmhg (35-45); MODE VENT - AC; Site Right Radial
[2018-02-17 09:34] LABS: ALBUMIN 2.4 g/dl (3.3-4.9); ANION GAP 32 (8-16); BLOOD UREA NITROGEN 56 mg/dl (7-20); CARBON DIOXIDE 14 mmol/L (21-31); CHLORIDE 101 mmol/L (97-110); GLUCOSE 97 mg/dl (70-220); PHOSPHORUS 11.3 mg/dl (2.5-4.9); POTASSIUM 4.7 mmol/L (3.5-5.1); SODIUM 142 mmol/L (135-144)
[2018-02-17 09:41] LABS: CREATININE 2.47 mg/dl (0.61-1.24)
[2018-02-17 09:43] LABS: CALCIUM 5.8 mg/dl (8.4-10.2)
[2018-02-17 09:46] LABS: TROPONIN-I 0.082 ng/ml (0.000-0.120)
[2018-02-17 11:08] LABS: IMMEDIATE SPIN CROSSMATCH 1 1
[2018-02-17 12:32] LABS: LACTIC ACID 13.2 mmol/L (0.5-2.0)
[2018-02-17 13:28] LABS: BAND NEUTROPHILS #M 0.3 10^3/ul (0.0-0.6); BAND NEUTROPHILS % (M) 9 % (0-4); BASOPHIL # 0.1 10^3/ul (0.0-0.1); EOSINOPHILS % (M) 1 % (0.0-7.0); ERYTHROBLAST% (NRBC) (M) 2 % (0-0); LYMPHOCYTES # 0.2 10^3/ul (0.8-2.9); LYMPHOCYTES #M 0.2 10^3/ul (0.8-2.9); LYMPHOCYTES % (M) 7 % (15-51); MONOCYTE # 0.1 10^3/ul (0.3-0.9); MONOCYTES % (M) 2 % (0-11); MYELOCYTES % (M) 1 % (0-0); REACTIVE LYMPHOCYTES% (M) 1 % (0-0); SEG NEUT #M 2.7 10^3/ul (1.7-7.5); SEGMENTED NEUTROPHILS (M) % 77 % (39-77)
[2018-02-17 13:32] LABS: ANISOCYTOSIS 1+ (0-0)
[2018-02-17] MEDS: CASPOFUNGIN 50 MG in SOD CHLORIDE 0.9% 250 ML IVPB (15:37)
[2018-02-17] MEDS: morphine (DRIP) 100 MG/100 ML 100 ML IV ×2 (16:50→23:46)
[2018-02-17] MEDS: LORAZEPAM 2 MG INJ IV ×3 (16:54→23:34)
[2018-02-17] MEDS ORDERED: MEROPENEM 1 GM/50ML(PMX) 50 ML IVPB (21:00)
[2018-02-17] MEDS ORDERED: VANCOMYCIN 1 GM 250 ML IVPB (22:00)
[2018-02-18] MEDS: LORAZEPAM 2 MG INJ IV ×2 (02:19→08:36)
[2018-02-18] MEDS: morphine (DRIP) 100 MG/100 ML 100 ML IV ×2 (03:19→07:37)
[2018-03-18 14:03] LABS: VIRAL CULTURE & ID SOURCE BAL
[2018-03-18 14:04] LABS: VIRAL CULTURE & ID STATUS FINAL; VIRAL CULTURE & IDENT RESULT NO VIRUS ISOLATED
== END 2018-02-18 10:17 | disposition expired | DRG 974 ==
LOC: TEL 01-26 00:40 → ICU 02-13 16:18 → E/R 17:10 → MS4 21:13 → TEL 01-29 20:01 → ICU 02-13 16:30 → MS4 19:38
PROC: 0XB53ZX Excision of Left Axilla, Percutaneous Approach, Diagnostic (ICD-10-PCS; 2018-01-09)
PROC: 009U3ZX Drainage of Spinal Canal, Percutaneous Approach, Diagnostic (ICD-10-PCS; 2018-01-13)
PROC: 0JH60WZ Insertion of Totally Implantable Vascular Access Device into Chest Subcutaneous Tissue and Fascia, Open Approach (ICD-10-PCS; 2018-01-17)
PROC: 02H633Z Insertion of Infusion Device into Right Atrium, Percutaneous Approach (ICD-10-PCS; 2018-01-17)
PROC: 009U3ZX Drainage of Spinal Canal, Percutaneous Approach, Diagnostic (ICD-10-PCS; 2018-02-02)
PROC: 05HM33Z Insertion of Infusion Device into Right Internal Jugular Vein, Percutaneous Approach (ICD-10-PCS; principal; 2018-02-13)
PROC: 5A1955Z Respiratory Ventilation, Greater than 96 Consecutive Hours (ICD-10-PCS; 2018-02-13)
PROC: 0BH17EZ Insertion of Endotracheal Airway into Trachea, Via Natural or Artificial Opening (ICD-10-PCS; 2018-02-13)
PROC: 0B9J8ZX Drainage of Left Lower Lung Lobe, Via Natural or Artificial Opening Endoscopic, Diagnostic (ICD-10-PCS; 2018-02-15)
DX: B20 Human immunodeficiency virus [HIV] disease (principal); A41.9 Sepsis, unspecified organism; R65.20 Severe sepsis without septic shock; G92 Toxic encephalopathy; R65.21 Severe sepsis with septic shock; N17.0 Acute kidney failure with tubular necrosis; J96.01 Acute respiratory failure with hypoxia; J18.9 Pneumonia, unspecified organism; C83.34 Diffuse large B-cell lymphoma, lymph nodes of axilla and upper limb; E87.2 Acidosis; D61.818 Other pancytopenia; E87.0 Hyperosmolality and hypernatremia; A52.2 Asymptomatic neurosyphilis; K59.00 Constipation, unspecified; E83.52 Hypercalcemia; E83.39 Other disorders of phosphorus metabolism; H91.90 Unspecified hearing loss, unspecified ear; F39 Unspecified mood [affective] disorder; Z51.5 Encounter for palliative care; Z91.19 Patient's noncompliance with other medical treatment and regimen; E83.51 Hypocalcemia; I48.0 Paroxysmal atrial fibrillation; F41.9 Anxiety disorder, unspecified; F32.9 Major depressive disorder, single episode, unspecified
CPT/HCPCS: 31500; 36415; 36430; 36561; 36600; 70450; 70553; 71045; 71250; 72125; 74177; 76536; 76705; 76942; 80048; 80053; 80061; 80069; 80076; 80202; 80307; 81001; 81003; 82043; 82140; 82270; 82330; 82550; 82553; 82570; 82803; 82945; 83010; 83036; 83540; 83605; 83615; 83735; 84100; 84132; 84155; 84157; 84300; 84439; 84443; 84484; 84560; 85014; 85018; 85025; 85045; 85378; 85384; 85610; 85613; 85651; 85730; 86038; 86140; 86308; 86360; 86480; 86580; 86592; 86635; 86644; 86664; 86692; 86701; 86703; 86704; 86709; 86803; 86850; 86900; 86901; 86920; 86945; 87040; 87070; 87077; 87081; 87086; 87102; 87116; 87210; 87220; 87252; 87275; 87276; 87279; 87280; 87285; 87340; 87496; 87536; 88104; 88305; 88307; 88313; 88341; 88342; 89051; 89190; 93005; 93306; 93970; 94002; 94003; 94640; 94664; 94770; 96374; 96375; 97110; 97116; 97162; 97530; 99291-25; J3487